=== PATIENT | male | born 1945 | race Caucasian/White ===

== ENCOUNTER 2019-09-27 13:58 | Outpatient (CLI) | payer OTHER, MEDICARE, SELFPAY ==
--- NOTE | 2019-09-27 | XR_ITS ---
WS: [id number] PROCEDURE: XR chest 2V* [id number] CLINICAL INFORMATION: HYPOXIA COMPARISON: December 07, 2018 FINDINGS: Heart: Cardiomegaly. Lungs: Mild chronic emphysematous changes. No acute pulmonary infiltrates. No focal pneumonia. Bones: Hypertrophic changes thoracic spine. XR/XR chest 2V* [id number] IMPRESSION: Mild chronic emphysematous changes. No acute chest findings.
== END 2019-09-27 13:59 | disposition home or self-care (01) ==
LOC: RADWPI 14:03
PROVIDERS: Family Provider Family Medicine; PCP Family Medicine; Visit Provider Family Medicine
DX: R09.02 Hypoxemia (principal); G62.9 Polyneuropathy, unspecified; I10 Essential (primary) hypertension; Z00.00 Encounter for general adult medical examination without abnormal findings; R60.9 Edema, unspecified
CPT/HCPCS: 71046

== ENCOUNTER 2019-10-21 13:31 | Outpatient (CLI) | payer MEDICARE, SELFPAY ==
--- NOTE | 2019-10-21 14:13 | PFTS_ITS ---
Date of Study:10/21/19 Date of Dictation: MECHANICS: Forced vital capacity (FVC) is reduced. Forced expiratory volume in one second (FEV1) is normal. FEV1/FVC is normal. FLOW VOLUME LOOP: Reduced flow at lower lung volumes with mild scooping. LUNG VOLUMES: Total lung capacity (TLC) is normal. Residual volume (RV) is normal. DIFFUSING CAPACITY FOR CARBON MONOXIDE: . INTERPRETATION: The pulmonary function tests are consistent with mild restriction. Lung volumes normal. Gas exchange (DLCO) is normal. MTDD
== END 2019-10-21 13:32 | disposition home or self-care (01) ==
LOC: RT 13:33
PROVIDERS: Family Provider Family Medicine; PCP Family Medicine; Visit Provider Family Medicine
DX: R09.02 Hypoxemia (principal)
CPT/HCPCS: 94010; 94726; 94729

== ENCOUNTER 2020-11-04 14:36 | Outpatient (CLI) | payer MEDICARE, SELFPAY ==
--- NOTE | 2020-11-04 15:00 | USCV_ITS ---
Heriberto Lyon Age: 74 Gender: M : 1945 Exam Date: 11/04/2020 15:36 Ordering Phys: Ninfa Kasper MD ([email or web address]) Technologist: SEGUNDO [place] [facility] [place]: THORACIC AORTIC ANEURYSM BP: 184 / 95 HR: 64 Rhythm: Sinus Technical Quality: Adequate MEASUREMENTS (Male / Female) Normal Values 2D ECHO LV Diastolic Diameter PLAX 5.1 cm 4.2 - 5.9 / 3.9 - 5.3 cm LV Systolic Diameter PLAX 3.3 cm IVS Diastolic Thickness 0.9 cm 0.6 - 1.0 / 0.6 - 0.9 cm IVS Systolic Thickness 2.0 cm LVPW Diastolic Thickness 1.4 cm 0.6 - 1.0 / 0.6 - 0.9 cm LVPW Systolic Thickness 1.6 cm LVOT Diameter 2.0 cm LV Ejection Fraction 2D Teich 63.7 % LV Ejection Fraction MOD 2C 60.4 % LV Ejection Fraction 2C AL 62.0 % LA Diameter 4.3 cm LA Width 2.9 cm LA Height 4.6 cm RA Width 2.8 cm RA Height 4.5 cm Aorta at Sinotubular Diameter 4.0 cm DOPPLER AV Peak Velocity 91.0 cm/s LVOT Peak Velocity 84.0 cm/s AV Area Cont Eq vti 2.7 cm squared AV Area Cont Eq pk 2.9 cm squared MV Peak Velocity 116.0 cm/s MV Area PHT 4.3 cm squared Mitral E to A Ratio 0.7 MV E' Velocity 43.0 cm/s Mitral E to MV E' Ratio 16.5 Mitral E to LV E' Lateral Ratio 14.7 Mitral E to LV E' Septal Ratio 18.8 TR Peak Velocity 249.9 cm/s TR Peak Gradient 25.0 mmHg TR Mean Velocity 169.0 cm/s TR Mean Gradient 13.5 mmHg TR Velocity Time Integral 76.8 cm TV Peak E Velocity 63.0 cm/s Right Atrial Pressure 3.0 mmHg Pulmonary Artery Systolic Pressu 28.0 mmHg PV Peak Velocity 84.0 cm/s RV Acceleration Time 0.0 s RV Ejection Time 0.3 s RV AcT/ET 0.1 FINDINGS Left Ventricle Normal left ventricular size, systolic function and wall thickness, with no regional wall motion abnormalities. Left ventricular ejection fraction is estimated at 60 %. Grade I diastolic dysfunction (abnormal relaxation filling pattern), normal to mildly elevated filling pressures. Right Ventricle Normal right ventricular size and systolic function. RVSP could not be calculated due to incomplete tricuspid regurgitation velocity profile. Right Atrium Normal right atrial size. Right atrial pressure estimated at 3 mm Hg. Left Atrium Mildly increased left atrial size. Mitral Valve Structurally normal mitral valve. No mitral valve stenosis. Trace mitral valve regurgitation. Aortic Valve Structurally normal trileaflet aortic valve. No aortic valve stenosis. No aortic valve regurgitation. Tricuspid Valve Structurally normal tricuspid valve. No tricuspid valve stenosis. Trace tricuspid valve regurgitation. Pulmonic Valve Pulmonic valve not well visualized. No pulmonary valve regurgitation. Pericardium No pericardial effusion. Aorta Mildly dilated aortic root measured at 43 mm and ascending aorta measured at 46 mm. Effacement of sino-tubular junction.Normal sized infreior vena cava. CONCLUSIONS 1. Normal left ventricular size, systolic function and wall thickness, with no regional wall motion abnormalities. Left ventricular ejection fraction is estimated at 60 %. Grade I diastolic dysfunction (abnormal relaxation filling pattern), normal to mildly elevated filling pressures. 2. No significant valvular abnormality. 3. Mildly dilated aortic root measured at 43 mm and ascending aorta measured at 46 mm. 4. No significant change when compared to previous study dated 01/09/2018. Ninfa Kasper MD (Electronically Signed) Final Date: 07 November 2020 10:25 S
== END 2020-11-04 14:37 | disposition home or self-care (01) ==
LOC: US 14:42
PROVIDERS: PCP Family Medicine; Visit Provider Internal Medicine Cardiovascular Disease
DX: I71.2 Thoracic aortic aneurysm, without rupture (principal)
CPT/HCPCS: 93306

== ENCOUNTER 2021-01-23 11:12 | Inpatient (IN) | payer OTHER, MEDICARE, SELFPAY ==
[2021-01-23] VITALS (8 sets, daily range): BP systolic 119–202; BP diastolic 77–119; PULSE 69–147; RESP 16–21; TEMP 36–37.7; O2SAT 91–95; BMI 34.1
--- NOTE | 2021-01-23 11:18 | ECG_ITS ---
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 Measurements Intervals [place] Rate: 67 P: 32 NC: 204 QRS: -27 QRSD: 87 T: 8 QT: 362 QTc: 382 Interpretive Statements SINUS RHYTHM BORDERLINE LEFT AXIS DEVIATION [QRS AXIS < -20] MINIMAL VOLTAGE CRITERIA FOR LVH, CONSIDER NORMAL VARIANT [MEETS CRITERIA IN ONE OF: R(aVL), S(V1), R(V5), R(V5/V6)+S(V1)] Compared to ECG 12/07/2018 20:09:28 First degree AV block no longer present Myocardial infarct finding no longer present Electronically Signed On 01-23-2021 21:28:07 CDT by Thom Matta M.D. [id number]
--- NOTE | 2021-01-23 11:18 | XRR_ITS ---
PROCEDURE INFORMATION: Exam: XR Chest Exam date and time: 01/23/2021 11:18 AM Age: 75 years old Clinical indication: Pain; Chest pressure; Additional info: Chest pain TECHNIQUE: Imaging protocol: XR of the chest. Views: 1 view. COMPARISON: CR XR chest 2V* [id number] 09/27/2019 2:10 PM FINDINGS: Lungs: Unremarkable. No consolidation. Pleural spaces: Unremarkable. No pleural effusion. No pneumothorax. Heart/Mediastinum: Unremarkable. No cardiomegaly. Bones/joints: Unremarkable. XR/XR chest 1V portable [id number] IMPRESSION: No acute findings. Radiation Dose CTDIVOL = (mGy): DLP = (mGy-cm)
--- NOTE | 2021-01-23 11:46 | CTR_ITS ---
PROCEDURE INFORMATION: Exam: CTA Chest Without And With Contrast Exam date and time: 01/23/2021 11:46 AM Age: 75 years old Clinical indication: Sternal or substernal pain; Abdominal pain; Patient HX: HX of ascending aneurysm C/O intermittent substernal/epigastric pain; Additional info: HX of aortic aneurysm, new onset of chest pain TECHNIQUE: Imaging protocol: Computed tomographic angiography of the chest without and with contrast. 3D rendering (Not supervised by radiologist): MIP and/or 3D reconstructed images were created by the technologist. Radiation optimization: All CT scans at this facility use at least one of these dose optimization techniques: automated exposure control; mA and/or kV adjustment per patient size (includes targeted exams where dose is matched to clinical indication); or iterative reconstruction. Contrast material: OMNI 350; Contrast volume: 95 ml; Contrast route: INTRAVENOUS (IV); COMPARISON: CTA Thoracic Aorta [id number] 12/07/2018 4:32 PM RADIATION DOSE METRICS: Total DLP (mGy-cm): 2467.85 FINDINGS: Pulmonary arteries: Normal. No pulmonary emboli. Aorta: There is aneurysmal dilation of the ascending thoracic aorta measuring 4.3 cm and 4.5 cm at the root. No dissection. Lungs: There is probable atelectasis/scar in the lungs. No lung mass or significant consolidation. Pleural spaces: Unremarkable. No pneumothorax. No pleural effusion. Heart: Unremarkable. No cardiomegaly. No pericardial effusion. Lymph nodes: Unremarkable. No enlarged lymph nodes. Bones/joints: Degenerative change is identified in the spine. No acute fracture. Soft tissues: Unremarkable. IMPRESSION: There is aneurysmal dilation of the ascending thoracic aorta which is not significantly changed when compared with 12/07/2018. No dissection. PROCEDURE INFORMATION: Exam: CTA Abdomen and Pelvis With Contrast Exam date and time: 01/23/2021 11:46 AM Age: 75 years old Clinical indication: Sternal or substernal pain; Abdominal pain; Patient HX: HX of ascending aneurysm C/O intermittent substernal/epigastric pain; Additional info: HX of aortic aneurysm, new onset of chest pain TECHNIQUE: Imaging protocol: Computed tomographic angiography of the abdomen and pelvis with contrast material. 3D rendering (Not supervised by radiologist): MIP and/or 3D reconstructed images were created by the technologist. Radiation optimization: All CT scans at this facility use at least one of these dose optimization techniques: automated exposure control; mA and/or kV adjustment per patient size (includes targeted exams where dose is matched to clinical indication); or iterative reconstruction. Contrast material: OMNI 350; Contrast volume: 95 ml; Contrast route: INTRAVENOUS (IV); COMPARISON: CTA Thoracic Aorta [id number] 12/07/2018 4:32 PM RADIATION DOSE METRICS: Total DLP (mGy-cm): 2467.85 FINDINGS: Aorta: No aortic aneurysm. No aortic dissection. Celiac trunk and mesenteric arteries: No occlusion or significant stenosis. Renal arteries: No occlusion or significant stenosis. Right iliac arteries: No occlusion or significant stenosis. Left iliac arteries: No occlusion or significant stenosis. Liver: Findings consistent with fatty infiltration of the liver are identified. Gallbladder and bile ducts: Gallstones are identified although there are no CT findings to suggest cholecystitis. Pancreas: Unremarkable. No mass. No ductal dilation. Spleen: Unremarkable. No splenomegaly. Adrenal glands: Unremarkable. No mass. Kidneys and ureters: Unremarkable. No solid mass. No hydronephrosis. Stomach and bowel: Unremarkable. No obstruction. No mucosal thickening. Appendix: No evidence of appendicitis. Intraperitoneal space: Unremarkable. No free air. No significant fluid collection. Lymph nodes: Unremarkable. No enlarged lymph nodes. Urinary bladder: Unremarkable. No mass. Reproductive: Unremarkable as visualized. Bones/joints: No acute fracture. No dislocation. Soft tissues: Unremarkable. CT/CT angio chest abdomen pelvis IMPRESSION: There are no acute concerning abnormalities. Radiation Dose CTDIVOL = (mGy): DLP = 2467.85~2467.85 (mGy-cm)
--- NOTE | 2021-01-23 11:50 | ED_ITS ---
HPI - General Adult General: Chief complaint: Chest Pain Stated complaint: CP, BP 202/122 Time Seen by Provider: 01/23/21 11:26 History of Present Illness: HPI narrative: CC: Chest Pain HPI: This is a [75] yo patient hx of HTN, DM, ascending thoracic aneurysm, presenting to the ED w/ acute onset intermittent R sided substernal chest pain x 1 day with associated dyspnea since yesterday night taht has now become constant. Pain is not tearing in nature and does not radiate to the back. Endorse nausea but has no associated with vomiting or decreased PO intake. Denies any recent sympathomimetic drug use. Patient denies any cough. Denies palpitations, syncope symptoms. Pain not positional. Norecent immobility, surgery, unilateral leg swelling, or prior PE. Patient denies any orthopnea, paroxysmal nocturnal dyspnea, weight gain, or increased leg swellings. Onset: 1 day ago Duration: ongoing for the last 1 days Location: home Severity: moderate Review of Systems Narrative: Constitutional: No fever, no chills. HEENT: No vision changes, no sore throat. CV: +chest pain, no palpitations. PULM: No cough, +dyspnea. GI: No abdominal pain, no N/V/D. : No dysuria, no frequency, no hematuria. MSKEL: No arthralgias, no edema. SKIN: No new rashes, no lesions. NEURO: No headache, no focal weakness. HEME: No easy bleeding or bruising. PSYCH: No change in mood or affect. PFS ED PFSH: Medical History Aortic root dilatation Diabetes GERD (gastroesophageal reflux disease) Hyperlipidemia Hypertension Thoracic ascending aortic aneurysm Surgical History S/P tonsillectomy and adenoidectomy Family History (Updated 01/23/21 @ 15:34 by Cruzito Avendano MD) Other CAD (coronary artery disease) Social History Smoking and tobacco status: former smoker Alcohol intake: current Alcohol intake frequency: holidays/special occasions only Physical Exam Narrative: EXAM NARRATIVE: Head: Atraumatic, normocephalic Eyes: PERRL, EOMI, conjunctiva without injection ENT: Throat without erythema, lesions or exudate, MMM NECK: Supple, trachea midline, no JVD LUNGS: LCTA CV: RRR, S1,S2, no murmurs, rubs, gallops. 2+ peripheral pulses in UEs ABDOMEN: Soft, nontender, nondistended, BS x4, no rigidity, no guarding, no rebound EXTREMITY: Normal ROM, no pitting edema, no calf tenderness to palpation SKIN: No rash or erythema NEURO: Awake and alert. No focal motor deficits. PSYCH: Normal mood and affect. Course Vital Signs: Vital signs: Vital Signs Temperature 100 F H 01/23/21 20:00 Pulse Rate 81 01/23/21 20:00 Respiratory Rate 21 H 01/23/21 20:00 Blood Pressure 134/77 01/23/21 20:00 Pulse Oximetry 91 01/23/21 20:00 MDM - General Adult MDM Narrative: Medical decision making narrative: [75]yo patient w/ hx of HTN, DM presenting to the ED With acute substernal chest pain X 1 day Currently mild chest pain. Given History And Exam today I have moderate to high suspicion for AC S/UA/NSTEMI. Today, I have NO suspicion for pneumothorax, pneumonia, pulmonary embolus, tamponade, aortic dissection or other emergent problem as a cause for this presentation. ECG did not show any signs of acute STEMI. Workup: ECG, CXR, CBC, BMP, Troponin Intervention: ASA 325mg, nitroglycerin ointment, nidipine for BP control Findings: ECG: No overt evidence of STEMI, no hyperacute T waves, localizable STD or T wave inversions. No evidence of Brugada?s sign, delta wave, epsilon wave, significantly prolonged QTc, or malignant arrhythmia. No Q waves. Troponin: Negative x 1 Other Labs unremarkable for emergent problems. CXR: Without PTX, PNA, or widened mediastinum HEART score: 4 [1:23] On reassessment, the patient is currently chest pain free. S/p aspirin 325mg. Will defer antiplatelet and anticoagulation to the inpatient team. Pending repeat troponin. 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 Disposition: Inpatient admission. Lab Data: Labs: Lab Results 01/23/21 01/23/21 01/23/21 12:04 12:04 12:04 WBC 12.1 10^3/uL H 10 ^3/uL (4.0-10.0) RBC 5.26 10^6/uL 10^6 /uL (4.1-5.3) Hgb 15.5 g/dL g/dL (11.7-16.6) Hct 46.0 % % (42.0-52.0) MCV 87.5 fl fl (80-94) MCH 29.5 pg pg (28.0-34.0) MCHC 33.7 g/dL g/dL (30.0-36.0) RDW 13.2 % % (12.1-15.1) Plt Count 287 10^3/cmm 10^3 /cmm (130-400) MPV 11.4 fL H fL (7.4-10.4) Neut % (Auto) 71.7 % % Lymph % (Auto) 14.0 % % [place] % (Auto) 12.2 % % Eos % (Auto) 1.5 % % Baso % (Auto) 0.3 % % Neut # (Auto) 8.63 10^3/uL H 10 ^3/uL (1.8-7.7) Lymph # (Auto) 1.7 10^3/uL 10^3/ uL (0.8-4.8) [place] # (Auto) 1.5 10^3/uL H 10^ 3/uL (0.2-0.9) Eos # (Auto) 0.2 10^3/uL 10^3/ uL (0.0-0.8) Baso # (Auto) 0.0 10^3/uL 10^3/ uL (0.0-0.1) Nucleated RBC % (a uto) 0 % % Nucleated RBCs # 0.0 /100WBC /100W BC Sodium 131 mmol/L L mmol /L (136-145) Potassium 3.7 mmol/L mmol/L (3.5-5.1) Chloride 92 mmol/L L mmol/ L (98-107) Carbon Dioxide 25 mmol/L mmol/L (22-29) Anion Gap 17.7 (5-19) BUN 15 mg/dL mg/dL (8-23) Creatinine 0.9 mg/dL mg/dL (0.7-1.2) GFR Calculation Not Reportable Glucose 121 mg/dL H mg/dL (65-115) Calculated Osmolal ity 274 mOsm/kg L mOs m/kg (285-295) Calcium 9.1 mg/dL mg/dL (8.5-10.5) Total Bilirubin Direct Bilirubin GGT AST ALT Alkaline Phosphata se Troponin T Baselin e 9 ng/L ng/L (0-15) Troponin T 120 Min joan Delta Troponin T C-Reactive Protein Total Protein Albumin Globulin Procalcitonin 01/23/21 01/23/21 12:04 13:20 WBC RBC Hgb Hct MCV MCH MCHC RDW Plt Count MPV Neut % (Auto) Lymph % (Auto) [place] % (Auto) Eos % (Auto) Baso % (Auto) Neut # (Auto) Lymph # (Auto) [place] # (Auto) Eos # (Auto) Baso # (Auto) Nucleated RBC % (a uto) Nucleated RBCs # Sodium Potassium Chloride Carbon Dioxide Anion Gap BUN Creatinine GFR Calculation Glucose Calculated Osmolal ity Calcium Total Bilirubin 0.5 mg/dL mg/dL (0.15-1.2) Direct Bilirubin 0.20 mg/dL mg/dL (0.00-0.30) GGT 23 U/L U/L (8-61) AST 29 U/L U/L (0-40) ALT 41 U/L U/L (0-41) Alkaline Phosphata se 52 IU/L IU/L (40-130) Troponin T Baselin e Troponin T 120 Min joan 9.91 ng/L ng/L (0-15) Delta Troponin T 0.91 ABS# ABS# (0-10) C-Reactive Protein 4.4 mg/L mg/L (0.0-4.9) Total Protein 7.4 g/dL g/dL (6.6-8.7) Albumin 4.3 g/dL g/dL (3.5-5.2) Globulin 3.1 g/dL g/dL (1.3-4.6) Procalcitonin 0.04 ng/mL ng/mL (0-0.5) Imaging Data^: Other Imaging: Radiologist's impression: [facility] [place] [id number] ReportSigned Patient: Heriberto Lyon #: [id number]: 1945cct#:[id number]/Sex: Date: 01/23/21Loc: ERRoom/Bed:Attending Dr: Ordering Provider/Ordering MD: Asael Hilario MD Date of Service: 01/23/21 Procedure(s): XR chest 1V portable [id number] Accession Number(s): [id number] Report Number: [id number] PROCEDURE INFORMATION: Exam: XR Chest Exam date and time: 01/23/2021 11:18 AM Age: 75 years old Clinical indication: Pain; Chest pressure; Additional info: Chest pain TECHNIQUE: Imaging protocol: XR of the chest. Views: 1 view. COMPARISON: CR XR chest 2V* [id number] 09/27/2019 2:10 PM FINDINGS: Lungs: Unremarkable. No consolidation. Pleural spaces: Unremarkable. No pleural effusion. No pneumothorax. Heart/Mediastinum: Unremarkable. No cardiomegaly. Bones/joints: Unremarkable. XR/XR chest 1V portable [id number] IMPRESSION: No acute findings. Radiation Dose CTDIVOL = (mGy): DLP = (mGy-cm) Dictated By:Russell Stephenson MDSigned By:Russell Stephenson MDSigned Date/Time:01/23/21 1327DD/ [address], [place] [address]GO Scan ReportSigned Patient: Heriberto Lyon #: [id number]: 1945t#:[id number] 60Age/Sex: Date: 01/23/21Loc: ERRoom/Bed:Attending Dr: Ordering Provider/Ordering MD: Asael Hilario MD Date of Service: 01/23/21 Procedure(s): CT angio chest abdomen pelvis Accession Number(s): [id number] Report Number: [id number] PROCEDURE INFORMATION: Exam: CTA Chest Without And With Contrast Exam date and time: 01/23/2021 11:46 AM Age: 75 years old Clinical indication: Sternal or substernal pain; Abdominal pain; Patient HX: HX of ascending aneurysm C/O intermittent substernal/epigastric pain; Additional info: HX of aortic aneurysm, new onset of chest pain TECHNIQUE: Imaging protocol: Computed tomographic angiography of the chest without and with contrast. 3D rendering (Not supervised by radiologist): MIP and/or 3D reconstructed images were created by the technologist. Radiation optimization: All CT scans at this facility use at least one of these dose optimization techniques: automated exposure control; mA and/or kV adjustment per patient size (includes targeted exams where dose is matched to clinical indication); or iterative reconstruction. Contrast material: OMNI 350; Contrast volume: 95 ml; Contrast route: INTRAVENOUS (IV); COMPARISON: CTA Thoracic Aorta [id number] 12/07/2018 4:32 PM RADIATION DOSE METRICS: Total DLP (mGy-cm): 2467.85 FINDINGS: Pulmonary arteries: Normal. No pulmonary emboli. Aorta: There is aneurysmal dilation of the ascending thoracic aorta measuring 4.3 cm and 4.5 cm at the root. No dissection. Lungs: There is probable atelectasis/scar in the lungs. No lung mass or significant consolidation. Pleural spaces: Unremarkable. No pneumothorax. No pleural effusion. Heart: Unremarkable. No cardiomegaly. No pericardial effusion. Lymph nodes: Unremarkable. No enlarged lymph nodes. Bones/joints: Degenerative change is identified in the spine. No acute fracture. Soft tissues: Unremarkable. IMPRESSION: There is aneurysmal dilation of the ascending thoracic aorta which is not significantly changed when compared with 12/07/2018. No dissection. PROCEDURE INFORMATION: Exam: CTA Abdomen and Pelvis With Contrast Exam date and time: 01/23/2021 11:46 AM Age: 75 years old Clinical indication: Sternal or substernal pain; Abdominal pain; Patient HX: HX of ascending aneurysm C/O intermittent substernal/epigastric pain; Additional info: HX of aortic aneurysm, new onset of chest pain TECHNIQUE: Imaging protocol: Computed tomographic angiography of the abdomen and pelvis with contrast material. 3D rendering (Not supervised by radiologist): MIP and/or 3D reconstructed images were created by the technologist. Radiation optimization: All CT scans at this facility use at least one of these dose optimization techniques: automated exposure control; mA and/or kV adjustment per patient size (includes targeted exams where dose is matched to clinical indication); or iterative reconstruction. Contrast material: OMNI 350; Contrast volume: 95 ml; Contrast route: INTRAVENOUS (IV); COMPARISON: CTA Thoracic Aorta [id number] 12/07/2018 4:32 PM RADIATION DOSE METRICS: Total DLP (mGy-cm): 2467.85 FINDINGS: Aorta: No aortic aneurysm. No aortic dissection. Celiac trunk and mesenteric arteries: No occlusion or significant stenosis. Renal arteries: No occlusion or significant stenosis. Right iliac arteries: No occlusion or significant stenosis. Left iliac arteries: No occlusion or significant stenosis. Liver: Findings consistent with fatty infiltration of the liver are identified. Gallbladder and bile ducts: Gallstones are identified although there are no CT findings to suggest cholecystitis. Pancreas: Unremarkable. No mass. No ductal dilation. Spleen: Unremarkable. No splenomegaly. Adrenal glands: Unremarkable. No mass. Kidneys and ureters: Unremarkable. No solid mass. No hydronephrosis. Stomach and bowel: Unremarkable. No obstruction. No mucosal thickening. Appendix: No evidence of appendicitis. Intraperitoneal space: Unremarkable. No free air. No significant fluid collection. Lymph nodes: Unremarkable. No enlarged lymph nodes. Urinary bladder: Unremarkable. No mass. Reproductive: Unremarkable as visualized. Bones/joints: No acute fracture. No dislocation. Soft tissues: Unremarkable. CT/CT angio chest abdomen pelvis IMPRESSION: There are no acute concerning abnormalities. Radiation Dose CTDIVOL = (mGy): DLP = 2467.85~2467.85 (mGy-cm) Dictated By:Russell Stephenson MDSigned By:Russell Stephenson MDSigned Date/Time:01/23/21 1426DD/ 1146 Discharge Plan Discharge Patient Disposition: Admitted As Inpatient Admit Provider: Cruzito Avendano Clinical Impression: Chest pain, Dyspnea Condition: Stable Coding Level of Care Code ED Process Owner for Bautista Mendoza
--- NOTE | 2021-01-23 12:12 | PC.NURSE ---
Assumed care at this time.
[2021-01-23 12:26] LABS: Basophils % 0.3 %; Eosinophils # 0.2 10^3/uL (0.0-0.8); Eosinophils % 1.5 %; Hemoglobin 15.5 g/dL (11.7-16.6); Lymphocytes # 1.7 10^3/uL (0.8-4.8); Mean Corpuscular HGB Conc 33.7 g/dL (30.0-36.0); Mean Corpuscular Hemoglobin 29.5 pg (28.0-34.0); Mean Corpuscular Volume 87.5 fl (80-94); Mean Platelet Volume 11.4 fL (7.4-10.4); Monocytes # 1.5 10^3/uL (0.2-0.9); Monocytes % 12.2 %; Neutrophils # 8.63 10^3/uL (1.8-7.7); Neutrophils % 71.7 %; Nucleated Red Blood Cells % 0 %; Platelet Count 287 10^3/cmm (130-400); Red Blood Count 5.26 10^6/uL (4.1-5.3); Red Cell Distribution Width 13.2 % (12.1-15.1); White Blood Count 12.1 10^3/uL (4.0-10.0)
[2021-01-23 12:51] LABS: Blood Urea Nitrogen 15 mg/dL (8-23); Calcium 9.1 mg/dL (8.5-10.5); Carbon Dioxide 25 mmol/L (22-29); Chloride 92 mmol/L (98-107); Glucose 121 mg/dL (65-115); Osmolality Calculated 274 mOsm/kg (285-295); Sodium 131 mmol/L (136-145)
[2021-01-23] MEDS: nitroglycerin 1 gm/inch oint Pkt 0.5 INCH TOPICAL (12:51)
[2021-01-23] MEDS: aspirin 325 mg Tablet PO (12:51)
[2021-01-23 12:52] LABS: Troponin(5th) Baseline 9 ng/L (0-15)
[2021-01-23 12:57] LABS: Anion Gap 17.7 (5-19); Potassium 3.7 mmol/L (3.5-5.1)
--- NOTE | 2021-01-23 13:18 | ECG_ITS ---
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 Measurements Intervals [place] Rate: 65 P: 48 ND: 228 QRS: -31 QRSD: 102 T: 4 QT: 399 QTc: 417 Interpretive Statements SINUS RHYTHM WITH FIRST DEGREE AV BLOCK LEFT AXIS DEVIATION [QRS AXIS < -30] MODERATE VOLTAGE CRITERIA FOR LVH, CONSIDER NORMAL VARIANT [MEETS CRITERIA IN ONE OF: R(aVL), S(V1), R(V5), R(V5/V6)+S(V1)] Compared to ECG 01/23/2021 11:57:37 First degree AV block now present Electronically Signed On 01-23-2021 21:34:41 CDT by Thom Matta M.D. [id number] f
[2021-01-23] MEDS: NIFEdipine ER (24 hr) 30 mg Tablet PO (13:27)
[2021-01-23] MEDS: lidocaine 2% viscous 15 ML, aluminum-mag hydrox-simethicon 30 ML, sucralfate oral liq 1 GM PO ×2 (13:37→17:19)
[2021-01-23] MEDS: morphine 4 mg/mL SDV 1 mL IVP (13:37)
[2021-01-23] MEDS: iohexol 350 mg/mL 100 mL Btl IV (13:48)
[2021-01-23 14:25] LABS: Troponin 5 2HR 9.91 ng/L (0-15); Troponin 5 2HR Delta 0.91 ABS# (0-10)
--- NOTE | 2021-01-23 15:17 | USR_ITS ---
PROCEDURE INFORMATION: Exam: US Abdomen, Limited; Right Upper Quadrant Exam date and time: 01/23/2021 3:17 PM Age: 75 years old Clinical indication: Abdominal pain; Epigastric; Additional info: Ruq pain TECHNIQUE: Imaging protocol: US abdomen. Real time ultrasound with image documentation. Limited exam focused on the right upper quadrant. COMPARISON: CT angio chest abdomen pelvis 01/23/2021 1:44 PM FINDINGS: Liver: Echogenic. No masses. Gallbladder: There are gallstones. There is no gallbladder wall thickening. Common bile duct: Normal. No stones. No dilation. Pancreas: Not seen. Right kidney: Measures 12.2 x 4.7 x 4.4 cm. No mass. No hydronephrosis. US/US gall bladder [id number] IMPRESSION: No sonographic evidence for cholecystitis. Findings consistent with fatty infiltration of the liver are identified. Radiation Dose CTDIVOL = (mGy): DLP = (mGy-cm)
--- NOTE | 2021-01-23 15:31 | P.HP_ITS ---
Providers/Chief Complaint Admitting Physician: Cruzito Avendano MD Primary Care Provider: Brissa Garland MD Chief Complaint: CP, BP 202/122 History of Present Illness Heriberto Lyon is a 75 year old male with a past medical history of noninsulin- dependent type 2 diabetes mellitus, hypertension, GERD, TIA, ascending aortic aneurysm, who presents to [facility] due to complaints of abdominal pain, and chest pain. Patient tells me that yesterday he had episodes of right upper quadrant, epigastric pain and pain into the right side of his chest. Nonradiating, associated with nausea, no vomiting, no lightheadedness, dizziness, shortness of breath, no bloody or black stools, or decrease in stooling, he tells me he always has acid reflux, he tells me that his pain is primarily in the epigastrium, no right upper quadrant, the right side of his chest, he tells me that the pain comes on in waves, but when it severe, pain can be 10 out of 10, he tells me that currently he is having waves of pain, he did have a croissant and sausage for breakfast. Denies a history of stenting, did have a stress test many years ago, no recent onset of chest pain, no recent onset of shortness of breath Review of Systems Const: Denies: fever(s), chills, fatigue or malaise Eyes: Denies: change in vision or blurry vision ENMT: Denies: nasal congestion Card: Reports: chest pain Resp: Denies: dyspnea, productive cough, non-productive cough or wheezing GI: Reports: abdominal pain and nausea; Denies: vomiting, hematemesis, coffee ground emesis, diarrhea, constipation, hematochezia or melena : Denies: flank pain, difficulty urinating, dysuria or urinary frequency Musc: Denies: neck pain or back pain Skin/Breast: Denies: rash Neuro: Denies: headache(s), dizziness or vertigo Psych: Denies: anxiety or depression Endo: Denies: polyuria or polydipsia Medications/Allergies Home Medications Medication Instructions Recorded Confirmed Last Taken Type aspirin 81 mg tablet,delayed 81 mg PO DAILY 10/02/19 01/23/21 01/22/21 History release metformin 1,000 mg tablet 500 mg PO BID tab 0601/23/21 01/19/21 History nitroglycerin 0.4 mg sublingual 0.4 mg SUBLINGUAL Q5M PRN 10/02/19 01/14/20 Unknown History tablet omeprazole 20 mg capsule,delayed 20 mg PO DAILY 10/02/19 01/14/20 Unknown History release metoprolol tartrate 100 mg tablet 100 mg PO BID 09/28/20 Unknown History hydrochlorothiazide 50 mg tablet 50 mg PO DAILY #30 tab 10/12/20 01/23/21 1 Rx potassium chloride 10 mEq 10 meq PO DAILY #30 cap 10/12/20 Unknown Rx capsule,extended release telmisartan 80 mg tablet 80 mg PO DAILY 10/12/20 Unknown History Allergies Allergy/AdvReac Type Severity Reaction Status Date / Time gabapentin Allergy Unknown Verified 09/28/20 11:03 lisinopril Allergy Unknown Verified 09/28/20 11:03 PFSH Acute PFSH: Medical History Aortic root dilatation Diabetes GERD (gastroesophageal reflux disease) Hyperlipidemia Hypertension Thoracic ascending aortic aneurysm Surgical History S/P tonsillectomy and adenoidectomy Family History (Updated 01/23/21 @ 15:34 by Cruzito Avendano MD) Other CAD (coronary artery disease) Social History Smoking and tobacco status: former smoker Alcohol intake: current Alcohol intake frequency: holidays/special occasions only Vitals/I&O/Wt Last Vital Signs Temp 98.5 F 01/23/21 14:51 Pulse 147 H 01/23/21 14:51 Resp 18 01/23/21 14:51 BP 148/86 01/23/21 14:51 Pulse Ox 92 01/23/21 14:51 Weight last 48 hrs Weight 88.451 kg Physical Exam Const: COMMON NORMALS: no acute distress and patient oriented x3 GENERAL APPEARANCE: cooperative and comfortable HENMT: COMMON NORMALS: normocephalic HEAD & SCALP: normocephalic Eye: COMMON NORMALS: Equal, round and reactive pupils present and EOMs intact bilaterally GENERAL EYE: appearance normal, both eyes and all related structures PUPIL: Yes Equal, round and reactive pupils present Neck/C-Spine: COMMON NORMALS: full ROM and no lymphadenopathy THYROID: Thyroid normal Lymph: LYMPHATIC: no lymphadenopathy noted Resp: COMMON NORMALS: normal respiratory effort, No retractions, No use of accessory muscles and clear to auscultation bilaterally AUSCULTATION: clear to auscultation bilaterally Cardio: COMMON NORMALS: regular rate, regular rhythm, S1 normal heart sound present, S2 normal heart sound present, No gallops present (Cardio), No clicks present (Cardio) and No murmurs present (Cardio) RATE: regular rate R HYTHM: regular rhythm HEART SOUNDS: S1 normal heart sound present and S2 normal heart sound present GI: COMMON NORMALS: Normal to inspection, nondistended, normoactive bowel sounds present and Soft to palpation PALPATION: Yes Soft to palpation and Yes Tenderness to palpation present (GI) Details: RUQ Extremity: COMMON NORMALS: normal to inspection, full ROM and no pedal edema Neuro: COMMON NORMALS: patient oriented x3, CN's II-XII intact bilaterally, moves all extremities and no focal motor deficits Psych: COMMON NORMALS: mental status grossly normal, Normal thought process present and cooperative THOUGHT PROCESS: Normal thought process present Data : 01/23/21 12:04 01/23/21 12:04 A&P Assessment and plan (1) Abdominal pain: -Patient's pain is more in the right upper quadrant and epigastrium rather than in the right side of the chest -No left-sided chest pain -Initial EKG no acute ST-T wave changes, baseline troponin within normal limits -Has exquisite right upper quadrant tenderness to palpation -CT scan of the abdomen pelvis does show gallstones, no radiographic evidence of cholecystitis, white blood cell count 12.1 -Liver function studies, pending Plan -Serial EKGs, serial troponins, telemetry monitoring, continue aspirin, statin -Follow right upper quadrant ultrasound, liver function studies -Based upon findings we will consider starting antibiotic therapy, discussion with surgery Type 2 diabetes mellitus, low-dose sliding scale Hyperlipidemia Hypertension GERD, continue Protonix, GI cocktail Status: Acute (2) Thoracic ascending aortic aneurysm: Status: Acute (3) Hyperlipidemia: Status: Acute Qualifiers: Hyperlipidemia type: mixed hyperlipidemia Qualified Code(s): E78.2 - Mixed hyperlipidemia (4) Diabetes: Status: Acute Qualifiers: Diabetes mellitus type: type 2 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 Qualified Code(s): E11.9 - Type 2 diabetes mellitus without complications Attestations Medical Necessity Statement*: Patient requires hospitalization, outpatient wit h observation, for chest pain, abdominal pain Coding Level of Care Code Acute 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
[2021-01-23 15:48] LABS: Alanine Aminotransferase 41 U/L (0-41); Albumin Level 4.3 g/dL (3.5-5.2); Alkaline Phosphatase 52 IU/L (40-130); C Reactive Protein 4.4 mg/L (0.0-4.9); Globulin 3.1 g/dL (1.3-4.6); Total Bilirubin 0.5 mg/dL (0.15-1.2); Total Protein 7.4 g/dL (6.6-8.7)
[2021-01-23 15:53] LABS: Procalcitonin 0.04 ng/mL (0-0.5)
[2021-01-23 16:08] LABS: Aspartate Amino Transferase 29 U/L (0-40)
[2021-01-23 16:21] LABS: Gamma Glutamyl Transferase 23 U/L (8-61)
[2021-01-23 17:15] LABS: Glucose Point of Care 149 mg/dL (70-110)
[2021-01-23] MEDS: metoprolol tartrate 50 mg Tablet 100 MG PO (17:18)
[2021-01-23] MEDS: heparin 5,000 unit/mL INJ 1 mL 5000 UNIT SUBCUT (17:18)
[2021-01-23] MEDS: insulin lispro 100 unit/1 mL SUBCUT (17:18)
--- NOTE | 2021-01-23 17:18 | ECG_ITS ---
[facility] Test Date: 2021-01-23 Pat Name: Heriberto Lyon Department: Room: 106 Gender: Male Rn Intake: : 1945 Requested By: Asael Hilario Order Number: [id number] Dimas MD: Thom Matta M.D. Measurements Intervals Pledger Rate: 85 P: 49 PA: 217 QRS: -36 QRSD: 102 T: 7 QT: 357 QTc: 426 Interpretive Statements SINUS RHYTHM WITH FIRST DEGREE AV BLOCK LEFT AXIS DEVIATION [QRS AXIS < -30] MINIMAL VOLTAGE CRITERIA FOR LVH, CONSIDER NORMAL VARIANT [MEETS CRITERIA IN ONE OF: R(aVL), S(V1), R(V5), R(V5/V6)+S(V1)] Compared to ECG 01/23/2021 13:11:36 No significant changes Electronically Signed On 01-23-2021 21:34:24 CDT by Thom Matta M.D. [id number]
[2021-01-23 18:28] LABS: Troponin 5 6HR 11.66 ng/L (0-15); Troponin 5 6HR Delta 2.66 ng/L (0-12)
--- NOTE | 2021-01-23 18:37 | PC.NURSE ---
pt admitted into room 106 from er at 1630.report received.pt is alert and oriented x 4 .sr w/first degree avb on monitor.pt states abd pain has resolved since er.oriented to room environment.instructed to notify staff for pain,sob,or for any concerns.pt verb understanding of instructions
[2021-01-23] MEDS: amoxicillin-clav 875-125 mg Tablet 1 TAB PO (19:48)
[2021-01-23] MEDS: atorvastatin 40 mg Tablet PO (19:49)
[2021-01-23 20:10] LABS: Glucose Point of Care 159 mg/dL (70-110)
[2021-01-24] VITALS (11 sets, daily range): BP systolic 134–168; BP diastolic 80–98; PULSE 78–95; RESP 19–29; TEMP 36.6–37.6; O2SAT 90–95
[2021-01-24] MEDS: heparin 5,000 unit/mL INJ 1 mL 5000 UNIT SUBCUT ×2 (03:57→18:03)
[2021-01-24 04:00] LABS: Basophils % 0.2 %; Eosinophils % 0.1 %; Hematocrit 45.2 % (42.0-52.0); Lymphocytes # 1.1 10^3/uL (0.8-4.8); Lymphocytes % 9.7 %; Mean Corpuscular HGB Conc 33.2 g/dL (30.0-36.0); Mean Corpuscular Hemoglobin 29.2 pg (28.0-34.0); Mean Corpuscular Volume 87.9 fl (80-94); Mean Platelet Volume 11.1 fL (7.4-10.4); Monocytes # 1.7 10^3/uL (0.2-0.9); Neutrophils # 8.88 10^3/uL (1.8-7.7); Neutrophils % 75.6 %; Nucleated Red Blood Cells % 0 %; Platelet Count 274 10^3/cmm (130-400); Red Blood Count 5.14 10^6/uL (4.1-5.3); Red Cell Distribution Width 13.6 % (12.1-15.1); White Blood Count 11.8 10^3/uL (4.0-10.0)
[2021-01-24 04:30] LABS: Estmated Average Glucose 151; Hemoglobin A1C 6.9 % (4.0-6.0)
[2021-01-24 04:42] LABS: Chol HDL Ratio 2.98 mg/dL (1.0-5.00); Cholesterol 140 mg/dL (0-200); HDL Cholesterol 47 mg/dL (60-100); LDL Cholesterol Calculated 52 mg/dL (50-129); LDL HDL Ratio 1.11 RATIO (0.00-3.22); NT Pro B Type Natriuretic Pept 301 pg/mL (0-450); Triglycerides 206 mg/dL (0-150)
[2021-01-24 04:46] LABS: Alanine Aminotransferase 34 U/L (0-41); Albumin Level 4.1 g/dL (3.5-5.2); Alkaline Phosphatase 55 IU/L (40-130); Anion Gap 17.5 (5-19); Aspartate Amino Transferase 22 U/L (0-40); Blood Urea Nitrogen 20 mg/dL (8-23); Calcium 9.1 mg/dL (8.5-10.5); Carbon Dioxide 27 mmol/L (22-29); Chloride 93 mmol/L (98-107); Globulin 3.2 g/dL (1.3-4.6); Glucose 150 mg/dL (65-115); Magnesium 1.9 mg/dL (1.7-2.3); Osmolality Calculated 283 mOsm/kg (285-295); Potassium 3.5 mmol/L (3.5-5.1); Sodium 134 mmol/L (136-145); Thyroid Stimulating Hormone 1.53 uIU/mL (0.27-4.20); Total Bilirubin 0.9 mg/dL (0.15-1.2); Total Protein 7.3 g/dL (6.6-8.7)
[2021-01-24 06:21] LABS: Glucose Point of Care 164 mg/dL (70-110)
[2021-01-24] MEDS: morphine 4 mg/mL SDV 1 mL 2 MG IVP (07:12)
[2021-01-24 08:21] LABS: Glucose Point of Care 147 mg/dL (70-110)
[2021-01-24] MEDS: metoprolol tartrate 50 mg Tablet 100 MG PO ×2 (08:49→18:03)
[2021-01-24] MEDS: amoxicillin-clav 875-125 mg Tablet 1 TAB PO (08:49)
[2021-01-24] MEDS: losartan 50 mg Tablet 100 MG PO (08:49)
[2021-01-24] MEDS: pantoprazole DR 40 mg Tablet PO ×2 (08:49→18:03)
[2021-01-24] MEDS: aspirin 81 mg EC Tablet PO (08:50)
[2021-01-24] MEDS: insulin lispro 100 unit/1 mL SUBCUT ×3 (08:50→18:03)
[2021-01-24 11:05] LABS: Glucose Point of Care 171 mg/dL (70-110)
--- NOTE | 2021-01-24 13:36 | P.PN_ITS ---
Subjective Subjective: Interval history: Intermittent right upper quadrant sharp pain. This morning had to have pain medication for it. Last night low-grade temp of 100 Fahrenheit. Discussed with him and his . Discussed also low saturation noted on vital signs, although his states that they monitor at home due to intermittent decreases, and sometimes goes as low as 92%. Does not use oxygen usually. We noticed saturation was coming down as low as 89% when he was speaking. Otherwise seen around 90-91%. He has been having nausea dry heaving. Takes NSAIDs at home for pain in his legs, has been taking naproxen twice daily. Has been taking it also recently due to the epigastric/right upper quadrant pain. Denies headache, muscle aches, cough, diarrhea. Previously completed moderate vaccination series for COVID-19. Discussed with him consideration of additional evaluation Including additional relation for possible cholecystitis, adjustment of antibiotic regimen to cover for this as well. Evaluation with HIDA scan. Discussed likely may not be able to do this today, they are agreeable to plan for tomorrow. We will also check lipase. Discussed testing for COVID-19. Vitals/I&O/Wt Last Vital Signs Temp 99.6 F 01/24/21 11:42 Pulse 78 01/24/21 11:42 Resp 28 H 01/24/21 11:42 BP 153/91 01/24/21 11:42 Pulse Ox 91 01/24/21 11:42 01/23/21 01/24/21 01/24/21 22:59 06:59 14:59 Intake Total 600 / 600 360 / 960 Balance 600 / 600 360 / 960 Weight last 48 hrs Weight 93.015 kg Weight 88.451 kg Physical Exam Narrative: EXAM NARRATIVE: at bedside. Const: COMMON NORMALS: no acute distress, patient oriented x3 and alert GENERAL APPEARANCE: cooperative NUTRITIONAL APPEARANCE: obese ORIENTATION/CONSCIOUSNESS: Yes awake OTHER: Somewhat SAXMAN. HENMT: COMMON NORMALS: oropharynx normal Neck/C-Spine: COMMON NORMALS: no JVD Resp: COMMON NORMALS: normal respiratory effort and clear to auscultation bilaterally AUSCULTATION: clear to auscultation bilaterally Cardio: COMMON NORMALS: no JVD, regular rhythm, S1 normal heart sound present, S2 normal heart sound present and No murmurs present (Cardio) RHYTHM: regular rhythm HEART SOUNDS: S1 normal heart sound present and S2 normal heart sound present GI: COMMON NORMALS: Normal to inspection, nondistended, normoactive bowel sounds present PALPATION: Yes Tenderness to palpation present (GI) Details: RUQ Extremity: COMMON NORMALS: no joint enlargement and no pedal edema Neuro: COMMON NORMALS: patient oriented x3 and moves all extremities SENSORIUM/ORIENTATION: Yes alert Skin: COMMON NORMALS: no rashes or lesions noted GENERAL SKIN EXAM: no rashes or lesions noted Data : 01/24/21 03:37 01/24/21 03:37 A&P Assessment and plan (1) Abdominal pain: Discussed right upper quadrant pain. Persists. Liver parameters normal. Check lipase. Discussed consideration of possible cholecystitis, although diagnosis not clear in setting of normal liver parameters, does have known cholelithiasis, but no other markers of cholecystitis noted. For now empirically change antibiotics to Cipro, Flagyl. There are some persistence of leukocytosis 11.8. Requesting additional assessment by HIDA scan. Discussed also possibility of gastritis given he does take naproxen at home in addition to aspirin. Continue PPI. Will increase to PPI twice daily. Discussed also aortic aneurysm of which he is aware, although there has been no change from prior. This is not suspected to be contributing. CT angiogram chest abdomen pelvis otherwise not remarkable for other possible etiology. Check rapid COVID-19. Status: Acute (2) Thoracic ascending aortic aneurysm: Status: Acute (3) Hyperlipidemia: Status: Acute Qualifiers: Hyperlipidemia type: mixed hyperlipidemia Qualified Code(s): E78.2 - Mixed hyperlipidemia (4) Diabetes: Status: Acute Qualifiers: Diabetes mellitus type: type 2 Diabetes mellitus assisted insulin use: without assisted use Diabetes mellitus complication status: without complication Qualified Code(s): E11.9 - Type 2 diabetes mellitus without complications Additional A&P Information GERD, continue Protonix, GI cocktail Attestations Medical Necessity Statement*: Admission over 2 midnights is needed for assessment management of recurrent episodes of right upper quadrant pain, low- grade fever, persistent leukocytosis. 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
[2021-01-24 14:22] LABS: Lipase 26 U/L (13-60)
[2021-01-24] MEDS: ciprofloxacin 400 MG/200 ML PREMIX 200 MG IV (15:50)
[2021-01-24] MEDS: metroNIDAZOLE IV 500 MG/100 ML PREMIX 100 MG IV ×2 (15:51→20:49)
--- NOTE | 2021-01-24 17:49 | USCV_ITS ---
Camron Heriberto Age: 75 Gender: M : 1945 Exam Date: 01/24/2021 07:12 Ordering Phys: Cruzito Avendano MD Technologist: Leah Hines Exam Location: [facility] Indication: Chest pain BP: 139 / 80 HR: 86 Rhythm: Sinus Technical Quality: Fair MEASUREMENTS (Male / Female) Normal Values 2D ECHO LV Diastolic Diameter PLAX 4.1 cm 4.2 - 5.9 / 3.9 - 5.3 cm LV Systolic Diameter PLAX 1.9 cm LV Chamber Size 3.6 cm IVS Diastolic Thickness 1.7 cm 0.6 - 1.0 / 0.6 - 0.9 cm IVS Systolic Thickness 1.2 cm LVPW Diastolic Thickness 0.8 cm 0.6 - 1.0 / 0.6 - 0.9 cm LVPW Systolic Thickness 1.5 cm RV Chamber Size 3.2 cm LVOT Diameter 2.0 cm LV Ejection Fraction 2D Teich 84.2 % LV Ejection Fraction MOD 2C 74.8 % LV Ejection Fraction 2C AL 79.8 % LA Diameter 5.0 cm LA Width 2.7 cm LA Height 3.9 cm RA Width 1.8 cm RA Height 3.3 cm Aorta at Sinotubular Diameter 3.5 cm M-MODE LV Diastolic Diameter MM 4.6 cm 4.2 - 5.9 / 3.9 - 5.3 cm LV Systolic Diameter MM 2.5 cm LV Ejection Fraction MM Teich 77.0 % IVS Diastolic Thickness MM 1.6 cm 0.6 - 1.0 / 0.6 - 0.9 cm IVS Systolic Thickness MM 1.7 cm LVPW Diastolic Thickness MM 1.3 cm 0.6 - 1.0 / 0.6 - 0.9 cm LVPW Systolic Thickness MM 1.8 cm RV Diastolic Diameter MM 2.4 cm Aortic Annulus Diameter 4.0 cm LA Ao Ratio MM 1.3 MV E Point Septal Separation 0.3 cm DOPPLER AV Peak Velocity 143.0 cm/s LVOT Peak Velocity 102.0 cm/s AV Area Cont Eq vti 2.3 cm squared AV Area Cont Eq pk 2.3 cm squared MV Area PHT 3.5 cm squared Mitral E to A Ratio 0.9 MV E' Velocity 52.0 cm/s Mitral E to MV E' Ratio 14.3 Mitral E to LV E' Lateral Ratio 14.3 Mitral E to LV E' Septal Ratio 14.3 TV Peak E Velocity 83.0 cm/s Right Atrial Pressure 3.0 mmHg PV Peak Velocity 91.0 cm/s RV Acceleration Time 0.1 s RV Ejection Time 0.3 s RV AcT/ET 0.3 FINDINGS Left Ventricle Normal left ventricular size. LV systolic function is normal with EF of 60-65%. No regional wall motion abnormalities. Grade 1 diastolic dysfunction Right Ventricle The right ventricle is normal in size and function. Right Atrium The right atrium is normal in size. Left Atrium The left atrium is normal in size. Mitral Valve Structurally normal mitral valve without significant stenosis or prolapse. There is trace mitral regurgitation. Aortic Valve Structurally normal aortic valve without significant sclerosis or stenosis. There is no aortic regurgitation. Tricuspid Valve Structurally normal tricuspid valve without significant stenosis or regurgitation. Pulmonary artery systolic pressure is normal. Pulmonic Valve Structurally normal pulmonic valve without significant stenosis. There is no pulmonic regurgitation. Pericardium Normal pericardium without effusion. Aorta Dilated ascending aorta measuring 4.5 cm. CONCLUSIONS LV systolic function is normal with EF of 60-65% Grade 1 diastolic dysfunction Trace mitral regurgitation Dilated ascending aorta measuring 4.5 cm unchanged from prior echocardiogram from 10/2020 Compared to prior echocardiogram from 10/2020, no significant changes are noted Thom Matta MD (Electronically Signed) Final Date: 24 January 2021 23:01 S
[2021-01-24 18:09] LABS: SARS Covid-2 Antigen Negative (Negative)
[2021-01-24 18:10] LABS: Glucose Point of Care 186 mg/dL (70-110)
--- NOTE | 2021-01-24 19:54 | PC.NURSE ---
pt had very little abd discomfort today.plan for disada scan tomorrow.began on flagyl and cipro ivpb.
--- NOTE | 2021-01-24 20:19 | PC.NURSE ---
report given to devorah on .pt to transfer to [facility] via w/c.
[2021-01-24] MEDS: atorvastatin 40 mg Tablet PO (20:48)
[2021-01-24 20:54] LABS: Glucose Point of Care 148 mg/dL (70-110)
[2021-01-25] VITALS (13 sets, daily range): BP systolic 108–171; BP diastolic 67–106; PULSE 57–130; RESP 16–28; TEMP 36.4–37.3; O2SAT 90–98
--- NOTE | 2021-01-25 | NM_ITS ---
WS: [id number] NUCLEAR MEDICINE HIDA SCAN HISTORY: RUQ pain COMPARISON: 01/23/2021 TECHNIQUE: The patient was intravenously injected with 7.5 mCi of TC99m Mebrofenin. Immediate imaging over the right upper quadrant was followed by 5 minute image and additional images for a total of 60 minutes. Normal uptake of radiotracer throughout the liver. The gallbladder is never identified. At 120 minutes there is no radionuclide within the gallbladder. There is a very short segment of the distal cystic duct identified. Common bile duct is normal. Activity in the proximal small bowel was seen by 15 minutes. Good washout of the radiotracer from the liver by 60 minutes. NM/NM hepatobiliary wo phar [id number] IMPRESSION: 1. Gallbladder is not identified 120 minutes. Suspect cystic duct obstruction. 2. Normal common bile duct.
[2021-01-25] MEDS: heparin 5,000 unit/mL INJ 1 mL 5000 UNIT SUBCUT ×2 (05:10→17:57)
[2021-01-25] MEDS: ciprofloxacin 400 MG/200 ML PREMIX 200 MG IV (05:10)
[2021-01-25 05:43] LABS: Basophils % 0.2 %; Eosinophils % 0.1 %; Hematocrit 44.9 % (42.0-52.0); Hemoglobin 15.5 g/dL (11.7-16.6); Lymphocytes % 7.5 %; Mean Corpuscular HGB Conc 34.5 g/dL (30.0-36.0); Mean Corpuscular Hemoglobin 29.8 pg (28.0-34.0); Mean Corpuscular Volume 86.3 fl (80-94); Mean Platelet Volume 11.4 fL (7.4-10.4); Monocytes # 1.5 10^3/uL (0.2-0.9); Monocytes % 10.8 %; Neutrophils # 11.25 10^3/uL (1.8-7.7); Neutrophils % 80.8 %; Nucleated Red Blood Cells % 0 %; Platelet Count 222 10^3/cmm (130-400); Red Cell Distribution Width 13.8 % (12.1-15.1); White Blood Count 13.9 10^3/uL (4.0-10.0)
[2021-01-25 07:00] LABS: Alanine Aminotransferase 22 U/L (0-41); Albumin Level 3.5 g/dL (3.5-5.2); Alkaline Phosphatase 60 IU/L (40-130); Anion Gap 18.5 (5-19); Aspartate Amino Transferase 17 U/L (0-40); Blood Urea Nitrogen 16 mg/dL (8-23); Calcium 8.7 mg/dL (8.5-10.5); Carbon Dioxide 22 mmol/L (22-29); Chloride 92 mmol/L (98-107); Globulin 3.4 g/dL (1.3-4.6); Glucose 143 mg/dL (65-115); Magnesium 1.8 mg/dL (1.7-2.3); Osmolality Calculated 272 mOsm/kg (285-295); Potassium 3.5 mmol/L (3.5-5.1); Sodium 129 mmol/L (136-145); Total Bilirubin 1.3 mg/dL (0.15-1.2); Total Protein 6.9 g/dL (6.6-8.7)
[2021-01-25 09:34] LABS: Glucose Point of Care 149 mg/dL (70-110)
[2021-01-25] MEDS: metoprolol tartrate 50 mg Tablet 100 MG PO ×2 (10:15→17:58)
[2021-01-25] MEDS: losartan 50 mg Tablet 100 MG PO (10:15)
[2021-01-25] MEDS: metroNIDAZOLE IV 500 MG/100 ML PREMIX 100 MG IV ×2 (10:46→21:31)
--- NOTE | 2021-01-25 12:00 | P.CONIM_ITS ---
Providers/Reason For Consult Consulting Physician/Specialty*: General Surgery Dr. Yan Reason for Consult*: Cystic duct obstruction Attending Physician: Jamal Robles Primary Care Provider: Brissa Garland MD History of Present Illness History of Present Illness Heriberto Lyon is a 75 year old male who presented to the ER with chest pain and abdominal pain on 01/23/2021. Patient states that the pain was mainly on the right side and was radiating to the chest and back. Patient had some nausea but denies any vomiting, constipation or diarrhea. No hematemesis hematochezia or melena. He states that he has had intermittent episodes in the past similar to this but none significant enough to require hospitalization. Patient subsequently had a cardiac work-up and cardiac pathology was ruled out. He had a HIDA scan this morning which showed cystic duct obstruction. Review of Systems General: Reports: 10 or more systems reviewed and unremarkable except in HPI and below Meds/Allergies Home Medications and Allergies Home Medications Medication Instructions Recorded Confirmed Last Taken Type aspirin 81 mg tablet,delayed 81 mg PO DAILY 10/02/19 01/23/21 01/22/21 History release metformin 1,000 mg tablet 500 mg PO BID tab 10/02/19 01/23/21 01/19/21 History nitroglycerin 0.4 mg sublingual 0.4 mg SUBLINGUAL Q5M PRN 10/02/19 01/23/21 Unknown History tablet omeprazole 20 mg capsule,delayed 20 mg PO DAILY 10/02/19 01/23/21 01/23/21 History release metoprolol tartrate 100 mg tablet 100 mg PO BID 09/28/20 01/23/21 01/23/21 History hydrochlorothiazide 50 mg tablet 50 mg PO DAILY #30 tab 10/12/20 01/23/21 01/23/21 Rx potassium chloride 10 mEq 10 meq PO DAILY #30 cap 10/12/20 01/23/21 01/23/21 Rx capsule,extended release telmisartan 80 mg tablet 80 mg PO DAILY 10/12/20 01/23/21 01/23/21 History Allergies Allergy/AdvReac Type Severity Reaction Status Date / Time gabapentin Allergy Unknown Verified 09/28/20 11:03 lisinopril Allergy Unknown Verified 09/28/20 11:03 Current Medications Current Medications Generic Name Dose Route Start Last Admin Trade Name Freq PRN Reason Stop Dose Admin Aspirin 81 mg 01/24/21 09:00 01/24/21 08:50 Aspirin 81 Mg Ec Tablet PO 81 mg DAILY MOMO Administration Atorvastatin Calcium 40 mg 01/23/21 21:00 01/24/21 20:48 Atorvastatin 40 Mg Tablet PO 40 mg BEDTIME MOMO Administration Heparin Sodium (Porcine) 5,000 unit 01/23/21 17:30 01/25/21 05:10 Heparin 5,000 Unit/Ml Inj 1 Ml SUBCUT 5,000 unit Q12H MOMO Administration Ciprofloxacin/Dextrose 400 mg in 200 mls @ 200 mls/hr 01/24/21 16:00 01/25/21 05:10 Cipro IV 200 mls/hr Q12H MOMO Administration Protocol Metronidazole 500 mg in 100 mls @ 100 mls/hr 01/24/21 14:00 01/25/21 10:46 Flagyl Iv IV 100 mls/hr Q8H MOMO Administration Protocol Insulin Human Lispro 0 unit 01/23/21 18:00 01/24/21 18:03 Insulin Lispro 100 Unit/1 Ml SUBCUT 4 unit TIDWM MOMO Administration Protocol Losartan Potassium 100 mg 01/24/21 09:00 01/25/21 10:15 Losartan 50 Mg Tablet PO 100 mg DAILY MOMO Administration Metoprolol Tartrate 100 mg 01/23/21 18:00 01/25/21 10:15 Metoprolol Tartrate 50 Mg Tablet PO 100 mg BID MOMO Administration Morphine Sulfate 2 mg 01/23/21 16:45 01/24/21 07:12 Morphine 4 Mg/Ml Sdv 1 Ml IVP 2 mg Q4H PRN Administration SEVERE PAIN Pantoprazole Sodium 40 mg 01/24/21 18:00 01/24/21 18:[address] 40 Mg Tablet PO 40 mg BIDWM MOMO Administration PFSH Acute PFSH: Medical History (Updated 01/25/21 @ 10:38 by Thor Yan MD) Aortic root dilatation Diabetes GERD (gastroesophageal reflux disease) Hyperlipidemia Hypertension Thoracic ascending aortic aneurysm Surgical History (Updated 01/25/21 @ 12:01 by Thor Yan MD) Hx of appendectomy S/P tonsillectomy and adenoidectomy Status post colonoscopy Family History (Updated 01/23/21 @ 15:34 by Cruzito Avendano MD) Other CAD (coronary artery disease) Social History Smoking and tobacco status: former smoker Alcohol intake: current Alcohol intake frequency: holidays/special occasions only Vitals/I&O/Wt Last Vital Signs Temp 99.0 F 01/25/21 04:00 Pulse 130 H 01/25/21 04:00 Resp 20 H 01/25/21 04:00 BP 130/76 01/25/21 10:15 Pulse Ox 91 01/25/21 04:00 01/24/21 01/25/21 01/25/21 22:59 06:59 14:59 Intake Total 540 / 640 100 / 640 Balance 540 / 640 100 / 640 Weight last 48 hrs Weight 205 lb 1 oz Physical Exam Narrative: EXAM NARRATIVE: HEENT: Normocephalic Eye: Sclera /conjunctiva normal Respiratory and chest: Bilateral clear breath sounds on auscultation Cardiovascular: Normal S1 and S2 heart sounds Abdomen: Soft to palpation Neurological: Oriented to place person and time Skin: Intact, no lesions appreciated on gross exam A&P Assessment and plan (1) Obstruction of cystic duct: 75-year-old male who presented 2 days ago with right-sided chest pain and abdominal pain with nausea. His cardiac work-up was negative CT chest abdomen pelvis done 01/23/2021: Nil acute Ultrasound gallbladder: Nil acute HIDA scan: Cystic duct obstruction Discussed the findings with the patient, the risks, benefits and details of the surgery and patient would like to proceed with laparoscopic possible open cholecystectomy today. He is currently on therapeutic IV Cipro. 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
--- NOTE | 2021-01-25 13:02 | ANES.PREANE2 ---
Pre-Anesthetic Assessment Pre-Anesthetic Assessment: Height/Weight: Height 1.65 m Weight 93.015 kg Temp Pulse Resp BP Pulse Ox 99.0 F 130 H 20 H 130/76 91 01/25/21 04:00 01/25/21 04:00 01/25/21 04:00 01/25/21 10:15 01/25/21 04:00 Preop Diagnosis: Cystic duct obstruction Proposed Procedure: Operation Date: 01/25/21 13:25 Proposed Procedures p Laparoscopic Cholecystectomy(Not Applicable) - Thor aYn MD Familial anesthetic complications: None Was Beta Lisa taken within 24 hours: Yes Was Clonidine taken within 24 hours: N/A Last intake: NPO > 8hrs Social: Social History: No alcohol and No tobacco Exam: Pre-Anes Outpt Exam: alert, oriented x 3, clear to auscultation bilaterally and regular rate & rhythm Airway: Cervical ROM: WNL MP: 4 Dentition: Full CV/HEM: CV/HEM: HTN Comments: CTA head and neck (09/2017): No hemodynamically significant cervical internal Carotid artery stenosis. Minor degree of calcified atheromatous plaque. Mild stenosis of left vertebral artery. Mild posterior circulation atherosclerosis without stenosis. 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 Echocardiogram Dec 2017: normal heart function with ejection fraction of 55%. No significant valvular abnormality. Grade 1 DD. Dilated aortic root 43 mm and ascending aorta at 46 mm. EKG with sinus rhythm with first-degree AV block. Left axis deviation. Low QRS voltage in precordial leads. Event monitor with no arrhythmia and no patient's symptoms. CTA aorta with run off (11/2018) Pulmonary arteries: Normal. No pulmonary emboli. Aorta: There is mild ectasia the descending thoracic aorta which measures proximal 4.5 cm at the root.. Lungs: There is a minimal patchy groundglass opacity in the right upper lobe such as on image #36 which likely represent some focal inflammatory disease. Lungs are otherwise clear. Pleural space: Unremarkable. No pneumothorax. No pleural effusion. Heart: Unremarkable. No cardiomegaly. No pericardial effusion. IMPRESSION: 1. Minimal focal inflammatory change in the right upper lobe 2. Fatty liver 3. Cholelithiasis 4. No pulmonary embolism Exercise sestamibi MPI (12/2018) CONCLUSION: 1. Normal EKG response to treadmill exercise. 2. No exercise-induced chest pain or cardiac arrhythmia. 3. Excellent exercise tolerance, attained a maximum of 10.2 METs. The Henao treadmill score of 7.5. Maximum VO2 of 35.7 ml/KG/minute 4. Baseline hypertension with normal blood pressure response to exercise. IMPRESSIONS 1. Myocardial perfusion imaging is normal. 2. Overall left ventricular systolic function is normal without regional wall motion abnormalities. 3. The left ventricular ejection fraction is normal with a value of 79%. 4. This study suggests a low likelihood of angiographically significant coronary artery disease. GI: GI: GERD Metabolic: Metabolic: DM and Hyperlipidemia Anesthetic Plan: ASA status: 3 Anesthesia: General Risk of > 500 ml blood loss (7ml/kg in children): No Meds/Allergies Current Medications: Current Medications Generic Name Dose Route Start Last Admin Trade Name Freq PRN Reason Stop Dose Admin Aspirin 81 mg 01/24/21 09:00 01/24/21 08:50 Aspirin 81 Mg Ec Tablet PO 81 mg DAILY MOMO Administration Atorvastatin Calci um 40 mg 01/23/21 21:00 01/24/21 20:48 Atorvastatin 40 Mg Tablet PO 40 mg BEDTIME MOMO Administration Heparin Sodium (Po rcine) 5,000 unit 01/23/21 17:30 01/25/21 05:10 Heparin 5,000 Un it/Ml Inj 1 Ml SUBCUT 5,000 unit Q12H MOMO Administration Ciprofloxacin/Dext alaina 400 mg in 200 mls @ 200 mls/hr 01/24/21 16:00 01/25/21 05:10 Cipro IV 200 mls/hr Q12H MOMO Administration Protocol Metronidazole 500 mg in 100 mls @ 100 mls/hr 01/24/21 14:00 01/25/21 10:46 Flagyl Iv IV 100 mls/hr Q8H MOMO Administration Protocol Insulin Human Lisp ro 0 unit 01/23/21 18:00 01/24/21 18:03 Insulin Lispro 1 00 Unit/1 Ml SUBCUT 4 unit TIDWM MOMO Administration Protocol Losartan Potassium 100 mg 01/24/21 09:00 01/25/21 10:15 Losartan 50 Mg T ablet PO 100 mg DAILY MOMO Administration Metoprolol Tartrat e 100 mg 01/23/21 18:00 01/25/21 10:15 Metoprolol Tartr ate 50 Mg Tablet PO 100 mg BID MOMO Administration Morphine Sulfate 2 mg 01/23/21 16:45 01/24/21 07:12 Morphine 4 Mg/Ml Sdv 1 Ml IVP 2 mg Q4H PRN Administration SEVERE PAIN Pantoprazole Sodiu m 40 mg 01/24/21 18:00 01/24/21 18:[address] 40 Mg Tablet PO 40 mg BIDWM MOMO Administration PFSH Anesthesia PFSH: Medical History (Updated 01/25/21 @ 10:38 by Thor Yan MD) Aortic root dilatation Diabetes GERD (gastroesophageal reflux disease) Hyperlipidemia Hypertension Thoracic ascending aortic aneurysm Surgical History (Updated 01/25/21 @ 12:01 by Thor Yan MD) Hx of appendectomy S/P tonsillectomy and adenoidectomy Status post colonoscopy Family History (Updated 01/23/21 @ 15:34 by Cruzito Avendano MD) Other CAD (coronary artery disease) Social History Smoking and tobacco status: former smoker Alcohol intake: current Alcohol intake frequency: holidays/special occasions only Data Anesthesia CBC & Chem 7: 01/25/21 05:09 01/25/21 05:09 Other Labs: Laboratory Results - last 48 hr 01/23/21 01/23/21 01/23/21 12:04 13:20 17:05 WBC RBC Hgb Hct MCV MCH MCHC RDW Plt Count MPV Neut % (Auto) Lymph % (Auto) [place] % (Auto) Eos % (Auto) Baso % (Auto) Neut # (Auto) Lymph # (Auto) [place] # (Auto) Eos # (Auto) Baso # (Auto) Nucleated RBC % (auto) Nucleated RBCs # Sodium Potassium Chloride Carbon Dioxide Anion Gap BUN Creatinine GFR Calculation Glucose POC Glucose 149 H Estimat Average Glucose Hemoglobin A1c Calculated Osmolality Calcium Magnesium Total Bilirubin 0.5 Direct Bilirubin 0.20 GGT 23 AST 29 ALT 41 Alkaline Phosphatase 52 Troponin T 120 Minute 9.91 Delta Troponin T 0.91 Troponin T Hi Sens 6Hr Troponin T Hi Sens 6Hr Delta C-Reactive Protein 4.4 NT-Pro-B Natriuret Pep Total Protein 7.4 Albumin 4.3 Globulin 3.1 Triglycerides Cholesterol LDL Cholesterol, Calc HDL Cholesterol LDL/HDL Ratio Cholesterol/HDL Ratio Lipase Procalcitonin 0.04 TSH SARS-CoV-2 Ag (Rapid) 1001/23/21 01/24/21 17:51 19:50 03:37 WBC 11.8 H RBC 5.14 Hgb 15.0 Hct 45.2 MCV 87.9 MCH 29.2 MCHC 33.2 RDW 13.6 Plt Count 274 MPV 11.1 H Neut % (Auto) 75.6 Lymph % (Auto) 9.7 [place] % (Auto) 14.0 Eos % (Auto) 0.1 Baso % (Auto) 0.2 Neut # (Auto) 8.88 H Lymph # (Auto) 1.1 [place] # (Auto) 1.7 H Eos # (Auto) 0.0 Baso # (Auto) 0.0 Nucleated RBC % (auto) 0 Nucleated RBCs # 0.0 Sodium Potassium Chloride Carbon Dioxide Anion Gap BUN Creatinine GFR Calculation Glucose POC Glucose 159 H Estimat Average Glucose Hemoglobin A1c Calculated Osmolality Calcium Magnesium Total Bilirubin Direct Bilirubin GGT AST ALT Alkaline Phosphatase Troponin T 120 Minute Delta Troponin T Troponin T Hi Sens 6Hr 11.66 Troponin T Hi Sens 6Hr Delta 2.66 C-Reactive Protein NT-Pro-B Natriuret Pep Total Protein Albumin Globulin Triglycerides Cholesterol LDL Cholesterol, Calc HDL Cholesterol LDL/HDL Ratio Cholesterol/HDL Ratio Lipase Procalcitonin TSH SARS-CoV-2 Ag (Rapid) 01/24/21 01/24/21 01/24/21 03:37 03:37 03:37 WBC RBC Hgb Hct MCV MCH MCHC RDW Plt Count MPV Neut % (Auto) Lymph % (Auto) [place] % (Auto) Eos % (Auto) Baso % (Auto) Neut # (Auto) Lymph # (Auto) [place] # (Auto) Eos # (Auto) Baso # (Auto) Nucleated RBC % (auto) Nucleated RBCs # Sodium 134 L Potassium 3.5 Chloride 93 L Carbon Dioxide 27 Anion Gap 17.5 BUN 20 Creatinine 0.9 GFR Calculation Not Reportable Glucose 150 H POC Glucose Estimat Average Glucose 151 Hemoglobin A1c 6.9 H Calculated Osmolality 283 L Calcium 9.1 Magnesium 1.9 Total Bilirubin 0.9 Direct Bilirubin GGT AST 22 ALT 34 Alkaline Phosphatase 55 Troponin T 120 Minute Delta Troponin T Troponin T Hi Sens 6Hr Troponin T Hi Sens 6Hr Delta C-Reactive Protein NT-Pro-B Natriuret Pep 301 Total Protein 7.3 Albumin 4.1 Globulin 3.2 Triglycerides 206 H Cholesterol 140 LDL Cholesterol, Calc 52 HDL Cholesterol 47 L LDL/HDL Ratio 1.11 Cholesterol/HDL Ratio 2.98 Lipase Procalcitonin TSH 1.53 SARS-CoV-2 Ag (Rapid) 01/24/21 01/24/21 01/24/21 03:37 06:18 07:46 WBC RBC Hgb Hct MCV MCH MCHC RDW Plt Count MPV Neut % (Auto) Lymph % (Auto) [place] % (Auto) Eos % (Auto) Baso % (Auto) Neut # (Auto) Lymph # (Auto) [place] # (Auto) Eos # (Auto) Baso # (Auto) Nucleated RBC % (auto) Nucleated RBCs # Sodium Potassium Chloride Carbon Dioxide Anion Gap BUN Creatinine GFR Calculation Glucose POC Glucose 164 H 147 H Estimat Average Glucose Hemoglobin A1c Calculated Osmolality Calcium Magnesium Total Bilirubin Direct Bilirubin GGT AST ALT Alkaline Phosphatase Troponin T 120 Minute Delta Troponin T Troponin T Hi Sens 6Hr Troponin T Hi Sens 6Hr Delta C-Reactive Protein NT-Pro-B Natriuret Pep Total Protein Albumin Globulin Triglycerides Cholesterol LDL Cholesterol, Calc HDL Cholesterol LDL/HDL Ratio Cholesterol/HDL Ratio Lipase 26 Procalcitonin TSH SARS-CoV-2 Ag (Rapid) 01/24/21 01/24/21 01/24/21 11:00 14:00 17:44 WBC RBC Hgb Hct MCV MCH MCHC RDW Plt Count MPV Neut % (Auto) Lymph % (Auto) [place] % (Auto) Eos % (Auto) Baso % (Auto) Neut # (Auto) Lymph # (Auto) [place] # (Auto) Eos # (Auto) Baso # (Auto) Nucleated RBC % (auto) Nucleated RBCs # Sodium Potassium Chloride Carbon Dioxide Anion Gap BUN Creatinine GFR Calculation Glucose POC Glucose 171 H 186 H Estimat Average Glucose Hemoglobin A1c Calculated Osmolality Calcium Magnesium Total Bilirubin Direct Bilirubin GGT AST ALT Alkaline Phosphatase Troponin T 120 Minute Delta Troponin T Troponin T Hi Sens 6Hr Troponin T Hi Sens 6Hr Delta C-Reactive Protein NT-Pro-B Natriuret Pep Total Protein Albumin Globulin Triglycerides Cholesterol LDL Cholesterol, Calc HDL Cholesterol LDL/HDL Ratio Cholesterol/HDL Ratio Lipase Procalcitonin TSH SARS-CoV-2 Ag (Rapid) Negative 01/24/21 01/25/21 01/25/21 19:45 05:09 05:09 WBC 13.9 H RBC 5.20 Hgb 15.5 Hct 44.9 MCV 86.3 MCH 29.8 MCHC 34.5 RDW 13.8 Plt Count 222 MPV 11.4 H Neut % (Auto) 80.8 Lymph % (Auto) 7.5 [place] % (Auto) 10.8 Eos % (Auto) 0.1 Baso % (Auto) 0.2 Neut # (Auto) 11.25 H Lymph # (Auto) 1.0 [place] # (Auto) 1.5 H Eos # (Auto) 0.0 Baso # (Auto) 0.0 Nucleated RBC % (auto) 0 Nucleated RBCs # 0.0 Sodium 129 L Potassium 3.5 Chloride 92 L Carbon Dioxide 22 Anion Gap 18.5 BUN 16 Creatinine 0.9 GFR Calculation Not Reportable Glucose 143 H POC Glucose 148 H Estimat Average Glucose Hemoglobin A1c Calculated Osmolality 272 L Calcium 8.7 Magnesium 1.8 Total Bilirubin 1.3 H Direct Bilirubin GGT AST 17 ALT 22 Alkaline Phosphatase 60 Troponin T 120 Minute Delta Troponin T Troponin T Hi Sens 6Hr Troponin T Hi Sens 6Hr Delta C-Reactive Protein NT-Pro-B Natriuret Pep Total Protein 6.9 Albumin 3.5 Globulin 3.4 Triglycerides Cholesterol LDL Cholesterol, Calc HDL Cholesterol LDL/HDL Ratio Cholesterol/HDL Ratio Lipase Procalcitonin TSH SARS-CoV-2 Ag (Rapid) 01/25/21 09:31 WBC RBC Hgb Hct MCV MCH MCHC RDW Plt Count MPV Neut % (Auto) Lymph % (Auto) [place] % (Auto) Eos % (Auto) Baso % (Auto) Neut # (Auto) Lymph # (Auto) [place] # (Auto) Eos # (Auto) Baso # (Auto) Nucleated RBC % (auto) Nucleated RBCs # Sodium Potassium Chloride Carbon Dioxide Anion Gap BUN Creatinine GFR Calculation Glucose POC Glucose 149 H Estimat Average Glucose Hemoglobin A1c Calculated Osmolality Calcium Magnesium Total Bilirubin Direct Bilirubin GGT AST ALT Alkaline Phosphatase Troponin T 120 Minute Delta Troponin T Troponin T Hi Sens 6Hr Troponin T Hi Sens 6Hr Delta C-Reactive Protein NT-Pro-B Natriuret Pep Total Protein Albumin Globulin Triglycerides Cholesterol LDL Cholesterol, Calc HDL Cholesterol LDL/HDL Ratio Cholesterol/HDL Ratio Lipase Procalcitonin TSH SARS-CoV-2 Ag (Rapid) Cardiac Studies: Echocardiogram 01/24/21
--- NOTE | 2021-01-25 13:30 | NM_ITS ---
WS: [id number] NUCLEAR MEDICINE HIDA SCAN HISTORY: RUQ pain COMPARISON: 01/23/2021 TECHNIQUE: The patient was intravenously injected with 7.5 mCi of TC99m Mebrofenin. Immediate imaging over the right upper quadrant was followed by 5 minute image and additional images for a total of 60 minutes. Normal uptake of radiotracer throughout the liver. The gallbladder is never identified. At 120 minutes there is no radionuclide within the gallbladder. There is a very short segment of the distal cystic duct identified. Common bile duct is normal. Activity in the proximal small bowel was seen by 15 minutes. Good washout of the radiotracer from the liver by 60 minutes.
--- NOTE | 2021-01-25 15:36 | P.OP_ITS ---
Operative Report Date of procedure: January 25, 2021 Pre-op Diagnosis: Cystic duct obstruction on HIDA scan Post-op Diagnosis: Acute calculus cholecystitis Hydrops gallbladder Procedure Done: Laparoscopic cholecystectomy Specimens removed/disposition: Gallbladder Surgeon: Thor Yan Anesthesia: General Condition: stable Disposition: PACU Procedure: The patient was taken to the operating room and was intubated under g eneral anesthesia. After the antibiotic had been administered, the abdomen was prepped and draped in a sterile manner. Using a #15 blade, a 1 centimeter infraumbilical curvilinear incision was made and using an open Dena technique the peritoneal cavity was entered. A 10 millimeter port was placed and 15 millimeters of pneumoperitoneum was created. A 10 millimeter, 30 degrees scope was then introduced. Three 5 millimeter ports were placed in the epigastric, midclavicular and the anterior axillary line two fingerbreadths below the costal margin on the right side under the direct visualization. The gallbladder was acutely inflamed and distended with a thickened wall. Using an aspiration needle 60 cc of clear bile was aspirated. Ratcheted forceps were introduced into the lateral most port and was used to retract the fundus of the gallbladder cephalad and using forceps the infundibulum of the gallbladder was retracted laterally. Using L-hook cautery the peritoneum overlying the Calot's triangle was opened medially and laterally until the cystic duct and the cystic artery were skeletonized. Dissection was carried along the body of the gallbladder and after ensuring critical view of safety, 4 clips applied on the cystic duct and 3 clips applied on the cystic artery and cut leaving, 3 clips on the remaining portion of the duct and 2 clips on the remaining portion of the artery. The rest of the gallbladder was dissected off the liver using L-hook cautery. There was no bleeding or bile leaking noted from the gallbladder fossa and the clips appeared to be in place. An EndoCatch bag was introduced to remove the gallbladder. All the ports were removed under direct visualization and there was no bleeding noted from the port sites. The fascia of the umbilicus was clos ed using [id number] Vicryl sutures and the subcutaneous tissue was approximated using 3-0 Vicryl sutures. The skin at all four ports were closed using 4-0 Monocryl and Dermabond. A total of 10 millimeters of 0.5% Marcaine was infiltrated around the port sites. The patient was stable throughout the procedure.
--- NOTE | 2021-01-25 15:46 | P.PN_ITS ---
Subjective Subjective: Interval history: Persistent right upper quadrant tenderness. Otherwise doing well. No chest pain. No trouble breathing. Awaiting surgery. Vitals/I&O/Wt Last Vital Signs Temp 99.0 F 01/25/21 04:00 Pulse 130 H 01/25/21 04:00 Resp 20 H 01/25/21 04:00 BP 130/76 01/25/21 10:15 Pulse Ox 91 01/25/21 04:00 01/25/21 01/25/21 01/25/21 06:59 14:59 22:59 Intake Total 100 / 640 60 / 60 Balance 100 / 640 60 / 60 Weight last 48 hrs Weight 93.015 kg Physical Exam Narrative: EXAM NARRATIVE: at bedside. Const: COMMON NORMALS: no acute distress, patient oriented x3 and alert GENERAL APPEARANCE: cooperative NUTRITIONAL APPEARANCE: obese ORIENTATION/CONSCIOUSNESS: Yes awake OTHER: Somewhat [place]. HENMT: COMMON NORMALS: oropharynx normal Neck/C-Spine: COMMON NORMALS: no JVD Resp: COMMON NORMALS: normal respiratory effort and clear to auscultation bilaterally AUSCULTATION: clear to auscultation bilaterally Cardio: COMMON NORMALS: no JVD, regular rhythm, S1 normal heart sound present, S2 normal heart sound present and No murmurs present (Cardio) RHYTHM: regular rhythm HEART SOUNDS: S1 normal heart sound present and S2 normal heart sound present GI: COMMON NORMALS: Normal to inspection, nondistended, normoactive bowel sounds present PALPATION: Yes Tenderness to palpation present (GI) Details: RUQ Extremity: COMMON NORMALS: no joint enlargement and no pedal edema Neuro: COMMON NORMALS: patient oriented x3 and moves all extremities SENSORIUM/ORIENTATION: Yes alert Skin: COMMON NORMALS: no rashes or lesions noted GENERAL SKIN EXAM: no rashes or lesions noted Data : 01/25/21 05:09 01/25/21 05:09 A&P Assessment and plan (1) Abdominal pain: Occluded cystic duct on HIDA. Laparoscopic cholecystectomy for acute cholecystitis. The gallbladder on visualization acutely inflamed and distended with a thickened wall. Noted worsening leukocytosis, 13.9, respiratory rate last night mid to high 20s. Possible sepsis. Add blood cultures. Continue antibiotics. Status: Acute (2) Thoracic ascending aortic aneurysm: Status: Acute (3) Hyperlipidemia: Status: Acute Qualifiers: Hyperlipidemia type: mixed hyperlipidemia Qualified Code(s): E78.2 - Mixed hyperlipidemia (4) Diabetes: Status: Acute Qualifiers: Diabetes mellitus complication status: without complication Diabetes mellitus long-term insulin use: without long-term use Diabetes mellitus type: type 2 Qualified Code(s): E11.9 - Type 2 diabetes mellitus without complications Additional A&P Information GERD, continue Protonix, GI cocktail Attestations Medical Necessity Statement*: Continue admission for assessment management of acute cholecystitis, possible early sepsis, status post laparoscopic cholecystectomy. Coding Level of Care Code Acute Retail Merchandising Manager for Chg Fwd Exam Comprehensive Diagnoses Abdominal pain R10.9 Thoracic ascending aortic aneurysm I71.2 Hyperlipidemia E78.2 Hyperlipidemia type: mixed hyperlipidemia Diabetes E11.9 Diabetes mellitus complication status: without complication Diabetes mellitus long-term insulin use: without ferry terminal agent use Diabetes mellitus type: type 2
[2021-01-25 16:03] LABS: Glucose Point of Care 160 mg/dL (70-110)
[2021-01-25 17:10] LABS: Glucose Point of Care 211 mg/dL (70-110)
[2021-01-25] MEDS: insulin lispro 100 unit/1 mL SUBCUT (17:57)
[2021-01-25] MEDS: pantoprazole DR 40 mg Tablet PO (17:58)
[2021-01-25] MEDS: sennosides-docusate Tablet 1 TAB PO (17:58)
[2021-01-25] MEDS: lanolin oint 7 gm 1 APPLIC TOPICAL (19:08)
--- NOTE | 2021-01-25 20:08 | ANE.PACU2 ---
Inpatient post-anesthesia follow up: Airway intact: Yes Vital signs: Temperature 98.6 F Pulse Rate [Monito r] 70 Pulse Rate 79 Respiratory Rate 18 Blood Pressure [Ri ght Arm] 202/119 Blood Pressure 126/81 Pulse Oximetry 94 Oxygen Delivery Me thod Nasal Cannula Oxygen Flow Rate 2 Fraction of Inspir ed Oxygen Hydration adequate: Yes Nausea and vomiting: No Pain level: 2 Mental status: Baseline
[2021-01-25] MEDS: atorvastatin 40 mg Tablet PO (20:37)
[2021-01-25 20:58] LABS: Glucose Point of Care 180 mg/dL (70-110)
[2021-01-26] MEDS: ciprofloxacin 400 MG/200 ML PREMIX 200 MG IV (03:59)
[2021-01-26 04:00] VITALS: BP 110/70; PULSE 74; RESP 18; TEMP 36.8; O2SAT 95
[2021-01-26] MEDS: heparin 5,000 unit/mL INJ 1 mL 5000 UNIT SUBCUT (05:10)
[2021-01-26] MEDS: metroNIDAZOLE IV 500 MG/100 ML PREMIX 100 MG IV (05:11)
--- NOTE | 2021-01-26 06:03 | PC.NURSE ---
SHIFT SUMMARY Has had a good night. X4 stab incisions to RUQ and umbilicus are all C&D with dermabond closure. KURT. Is very pleasant. Has denied any pain tonight and has received no pain meds. Says his abdomen is not even tender this morning. Says he already even feels stronger than he did yesterday. Has been sitting on side of bed this morning drinking a cup of coffee. Says is ready for breakfast. Diet ordered. Ambulated in campuzano with nurse and tolerated well. Receiving IV antibiotics as ordered.
[2021-01-26 06:05] LABS: Basophils % 0.1 %; Hematocrit 43.4 % (42.0-52.0); Hemoglobin 14.3 g/dL (11.7-16.6); Lymphocytes # 0.8 10^3/uL (0.8-4.8); Lymphocytes % 6.1 %; Mean Corpuscular HGB Conc 32.9 g/dL (30.0-36.0); Mean Corpuscular Hemoglobin 29.1 pg (28.0-34.0); Mean Corpuscular Volume 88.2 fl (80-94); Monocytes # 1.3 10^3/uL (0.2-0.9); Monocytes % 10.5 %; Neutrophils # 10.36 10^3/uL (1.8-7.7); Neutrophils % 82.7 %; Nucleated Red Blood Cells % 0 %; Platelet Count 246 10^3/cmm (130-400); Red Blood Count 4.92 10^6/uL (4.1-5.3); Red Cell Distribution Width 13.9 % (12.1-15.1); White Blood Count 12.5 10^3/uL (4.0-10.0)
[2021-01-26 06:30] LABS: Alanine Aminotransferase 24 U/L (0-41); Albumin Level 3.3 g/dL (3.5-5.2); Alkaline Phosphatase 50 IU/L (40-130); Anion Gap 17.9 (5-19); Aspartate Amino Transferase 26 U/L (0-40); Blood Urea Nitrogen 23 mg/dL (8-23); Calcium 8.4 mg/dL (8.5-10.5); Carbon Dioxide 22 mmol/L (22-29); Chloride 95 mmol/L (98-107); Globulin 3.9 g/dL (1.3-4.6); Glucose 158 mg/dL (65-115); Magnesium 2.1 mg/dL (1.7-2.3); Osmolality Calculated 279 mOsm/kg (285-295); Potassium 3.9 mmol/L (3.5-5.1); Sodium 131 mmol/L (136-145); Total Bilirubin 0.7 mg/dL (0.15-1.2); Total Protein 7.2 g/dL (6.6-8.7)
[2021-01-26 07:13] LABS: Glucose Point of Care 154 mg/dL (70-110)
--- NOTE | 2021-01-26 07:41 | PM.PN ---
Subjective Subjective: Interval history: Patient feels great, denies any nausea or vomiting, tolerating clear liquid diet Vitals/I&O/Wt Last Vital Signs Temp 98.2 F 01/26/21 04:00 Pulse 74 01/26/21 04:00 Resp 18 01/26/21 04:00 BP 110/70 01/26/21 04:00 Pulse Ox 95 01/26/21 04:00 01/25/21 01/26/21 01/26/21 22:59 06:59 14:59 Intake Total 320 / 1280 900 / 1280 Output Total 50 / 450 400 / 450 Balance 270 / 830 500 / 830 Physical Exam Narrative: EXAM NARRATIVE: Abdomen: Soft, nontender, nonrigid, incisions healing well Data : 01/26/21 05:48 01/26/21 05:48 Micro: Microbiology 01/25/21 17:03 Blood Culture - Preliminary Blood SPECIMEN COLLECTED 01/25/21 16:55 Blood Culture - Preliminary Blood SPECIMEN COLLECTED A&P Assessment and plan (1) Status post laparoscopic cholecystectomy: Overall doing well Advance to regular diet DC home today Prescriptions and postop instructions placed in the chart Status: Acute Attestations Medical Necessity Statement*: As per primary Coding Level of Care Code Acute Income Tax Return Preparer for Bautista Fwemilia Diagnoses Status post laparoscopic cholecystectomy Z90.49
[2021-01-26 08:00] VITALS: BP 119/78; PULSE 70; RESP 17; TEMP 36.9; O2SAT 93
[2021-01-26] MEDS: insulin lispro 100 unit/1 mL SUBCUT ×2 (08:20→12:12)
[2021-01-26 08:21] VITALS: BP 119/78
[2021-01-26] MEDS: losartan 50 mg Tablet 100 MG PO (08:21)
[2021-01-26] MEDS: pantoprazole DR 40 mg Tablet PO (08:21)
[2021-01-26] MEDS: aspirin 81 mg EC Tablet PO (08:21)
[2021-01-26] MEDS: sennosides-docusate Tablet 1 TAB PO (08:22)
[2021-01-26] MEDS: metoprolol tartrate 50 mg Tablet 100 MG PO (08:22)
[2021-01-26 10:56] VITALS: BP 123/79; PULSE 70; RESP 18; TEMP 36.7; O2SAT 94
[2021-01-26 11:55] LABS: Glucose Point of Care 216 mg/dL (70-110)
--- NOTE | 2021-01-26 13:14 | PM.DCS ---
Discharge Providers Date of Admission: 01/24/21 14:01 Date of Discharge: January 26, 2021 Attending Provider at Admission: Cruzito Avendano MD Attending Provider at Discharge: Jamal Robles Primary Care Provider: Brissa Garland MD Diagnoses at Discharge Discharge Diagnosis (1) Status post laparoscopic cholecystectomy: Status: Acute Reason for Visit Reason for Visit: CP, BP 202/122 Hospital Course Hospital Course Pleasant 75-year-old gentleman with history of ascending thoracic aortic aneurysm, HTN, DM 2, HLD, GERD was admitted for assessment of management of right upper quadrant pain, initially thought to be chest pain, underwent assessment for possible [place], without evidence of PE on presentation, with noted chronic ascending thoracic aortic aneurysm on CTA chest, unremarkable CT angiogram abdomen pelvis. Gallbladder ultrasound initially without signs of cholecystitis, but with noted cholelithiasis. Liver parameters initially normal, but with persistent right upper quadrant pain, leukocytosis, started on antibiotic therapy for possible cholecystitis, subsequently with rising bilirubin to 1.3. HIDA scan showing findings compatible with cystic duct obstruction. Underwent laparoscopic cholecystectomy with finding of inflamed gallbladder with thickened wall. With some persistence of leukocytosis which is now improving. He is doing better. Tolerating oral intake. Feels ready to return home, cleared for discharge from surgery perspective with follow-up in office. Physical Exam Const: COMMON NORMALS: no acute distress, patient oriented x3 and alert GENERAL APPEARANCE: cooperative and comfortable NUTRITIONAL APPEARANCE: obese ORIENTATION/CONSCIOUSNESS: Yes awake OTHER: Somewhat [place]. HENMT: COMMON NORMALS: oropharynx normal Neck/C-Spine: COMMON NORMALS: no JVD Resp: COMMON NORMALS: normal respiratory effort and clear to auscultation bilaterally AUSCULTATION: clear to auscultation bilaterally Cardio: COMMON NORMALS: no JVD, regular rhythm, S1 normal heart sound present, S2 normal heart sound present and No murmurs present (Cardio) RHYTHM: regular rhythm HEART SOUNDS: S1 normal heart sound present and S2 normal heart sound present GI: COMMON NORMALS: Normal to inspection, nondistended, normoactive bowel sounds present and non-tender Extremity: COMMON NORMALS: no joint enlargement and no pedal edema Neuro: COMMON NORMALS: patient oriented x3 and moves all extremities SENSORIUM/ORIENTATION: Yes alert Skin: COMMON NORMALS: no rashes or lesions noted GENERAL SKIN EXAM: no rashes or lesions noted Discharge Data Data Completed and Pending: Completed Studies During Hospitalization Category Date Time Status CT angio chest ab domen pelvis Urgen t Cat Scan 01/23/21 11:46 Completed XR chest 1V jose f ble [id number] Urgent Exams 01/23/21 11:18 Completed NM hepatobiliary w phar* [id number] Rout ine Nuc Med 01/25/21 13:30 Completed CV. echo complete * [id number] Routine Ultrasound 01/24/21 17:49 Completed US gall bladder 7 [id number] Urgent Ultrasound 01/23/21 15:17 Completed Pending at discharge Category Date Time Status ES surgery / GI i mages Routine Exams 01/25/21 12:49 Taken Blood Culture Sta t Lab 01/25/21 17:03 Results Comprehensive Met abolic Panel AM LA BS Lab 01/27/21 04:00 Ordered Pathology: Surgic al [PTH] Routine Pth 01/25/21 15:53 Ordered Labs from last 24 hours 01/26/21 01/26/21 01/26/21 10:55 06:54 05:48 WBC RBC Hgb Hct MCV MCH MCHC RDW Plt Count MPV Neut % (Auto) Lymph % (Auto) [place] % (Auto) Eos % (Auto) Baso % (Auto) Neut # (Auto) Lymph # (Auto) [place] # (Auto) Eos # (Auto) Baso # (Auto) Nucleated RBC % (a uto) Nucleated RBCs # Sodium 131 L Potassium 3.9 Chloride 95 L Carbon Dioxide 22 Anion Gap 17.9 BUN 23 Creatinine 1.1 GFR Calculation Not Reportable Glucose 158 H POC Glucose 216 H 154 H Calculated Osmolal ity 279 L Calcium 8.4 L Magnesium 2.1 Total Bilirubin 0.7 AST 26 ALT 24 Alkaline Phosphata se 50 Total Protein 7.2 Albumin 3.3 L Globulin 3.9 01/26/21 01/25/21 01/25/21 05:48 20:56 17:07 WBC 12.5 H RBC 4.92 Hgb 14.3 Hct 43.4 MCV 88.2 MCH 29.1 MCHC 32.9 RDW 13.9 Plt Count 246 MPV 11.0 H Neut % (Auto) 82.7 Lymph % (Auto) 6.1 [place] % (Auto) 10.5 Eos % (Auto) 0.0 Baso % (Auto) 0.1 Neut # (Auto) 10.36 H Lymph # (Auto) 0.8 [place] # (Auto) 1.3 H Eos # (Auto) 0.0 Baso # (Auto) 0.0 Nucleated RBC % (a uto) 0 Nucleated RBCs # 0.0 Sodium Potassium Chloride Carbon Dioxide Anion Gap BUN Creatinine GFR Calculation Glucose POC Glucose 180 H 211 H Calculated Osmolal ity Calcium Magnesium Total Bilirubin AST ALT Alkaline Phosphata se Total Protein Albumin Globulin 01/25/21 15:56 WBC RBC Hgb Hct MCV MCH MCHC RDW Plt Count MPV Neut % (Auto) Lymph % (Auto) [place] % (Auto) Eos % (Auto) Baso % (Auto) Neut # (Auto) Lymph # (Auto) [place] # (Auto) Eos # (Auto) Baso # (Auto) Nucleated RBC % (a uto) Nucleated RBCs # Sodium Potassium Chloride Carbon Dioxide Anion Gap BUN Creatinine GFR Calculation Glucose POC Glucose 160 H Calculated Osmolal ity Calcium Magnesium Total Bilirubin AST ALT Alkaline Phosphata se Total Protein Albumin Globulin Vitals: Last Vital Signs Temp 98.0 F 01/26/21 10:56 Pulse 70 01/26/21 10:56 Resp 18 01/26/21 10:56 BP 123/79 01/26/21 10:56 Pulse Ox 94 01/26/21 10:56 Discharge Plan Discharge Patient Disposition: Home Condition: Stable Prescriptions: New hydrocodone-acetaminophen 5-325 mg tablet 1 tab PO Q6H PRN (Reason: pain) Qty: 20 RF: 0 docusate sodium [Colace] 100 mg capsule 100 mg PO BID Qty: 30 RF: 0 levofloxacin 750 mg tablet 750 mg PO DAILY 5 Days RF: 0 metronidazole [Flagyl] 500 mg tablet 500 mg PO Q8H 5 Days Qty: 15 RF: 0 ondansetron HCl [Zofran] 4 mg tablet 4 mg PO Q6H PRN (Reason: nausea and vomiting) Qty: 20 RF: 0 Continued aspirin [Aspir-81] 81 mg tablet,delayed release (DR/EC) 81 mg PO DAILY RF: 0 metformin 1,000 mg tablet 500 mg PO BID RF: 0 nitroglycerin 0.4 mg tablet, sublingual 0.4 mg SUBLINGUAL Q5M PRN (Reason: Chest Pain) RF: 0 omeprazole 20 mg capsule,delayed release(DR/EC) 20 mg PO DAILY RF: 0 metoprolol tartrate 100 mg tablet 100 mg PO BID RF: 0 potassium chloride 10 mEq capsule, extended release 10 meq PO DAILY Qty: 30 RF: 3 telmisartan 80 mg tablet 80 mg PO DAILY RF: 0 hydrochlorothiazide 50 mg tablet 50 mg PO DAILY Qty: 30 RF: 3 Discharge Orders: Discharge Order (Routine); Ordered 01/26/21 Ordered By: Jamal Robles Referrals: Brissa Garland MD [Primary Care Provider] - 4-7 days Thor Yan MD [Physician] - 2 weeks Patient Instructions: Opioid Safety Activity Restrictions/Additional Instructions: Diet Advance to normal diet as tolerated, increase fluid intake as much as possible. Activity Avoid strenuous activity for 2 weeks but continue with daily activities including walking as tolerated. Do not lift more than 10 pounds for 2 weeks Return to work/school You can return to work/ school whenever you feel ready as long as you don?t have to lift more than 10 pounds at work. If you have paperwork that needs to be completed for time off from work, please contact my office Driving You can resume driving once you stop using narcotic pain medications, and transition to non-opioid pain medications like Tylenol, Motrin, Aleve, etc. Medications Pain Take opioid pain medications as prescribed and transition to non-opioid pain medications like Tylenol, Motrin, Aleve etc. over the next few days. The goal of the pain medications is to make the pain bearable and not to be pain free since you recently had surgery. Resume all home medications after surgery as per the medication reconciliation list Nausea Nausea is common after surgery, take nausea medications as needed and stay on a liquid bland diet until nausea resolves. Constipation The combination of surgery, anesthesia and pain medications can result in constipation. Take stool softeners as prescribed. If you do not have a bowel movement in 3 days, please take an mewb-hxj-cieceru laxative like MiraLAX to address the constipation. Shower It is ok to shower but avoid getting the wound wet for 48 hours after surgery. Do not soak in bathtub, swimming pool or hot tub for 2 weeks. Wound care If glue has been used on your incisions after surgery, the glue on the incision will peel slowly over the next two weeks. The stitches used are dissolvable and will not need to be removed. Do not apply antibiotics or other medications on the incision Problems with the wound: you can develop some redness around the incision from bruising after surgery. If there is increasing pain, redness, tenderness around the incision with or without drainage, please contact my office to rule out an infection. Sometimes the skin at the incisions can separate, resulting in reopening of the wound. Cover the wound with antibiotic cream and sterile dressings and contact my office. Contact physician Call the office at [phone] during office hours or go the Emergency Room ?Fever to 100.4 or greater ?Shaking chills ?Pain that increases over time ?Redness, warmth, or pus draining from incision sites ?Persistent nausea or inability to take in liquids Please follow-up with your primary doctor with usual follow-up regarding thoracic aortic aneurysm. Diabetes, hypercholesterolemia, and other chronic problems. Discharge Attestations Time Spent in Discharge Care*: greater than 30 min Quality Metrics Clinical Quality Measures During this hospital stay, did patient experience: None Coding Level of Care Code Acute [facility] [place] note Diagnoses Status post laparoscopic cholecystectomy Z90.49
[2021-01-26 14:07] VITALS: BP 123/79; PULSE 70; RESP 18; TEMP 36.7; O2SAT 94
--- NOTE | 2021-01-27 12:36 | PC.SOCIAL ---
discharge follow up call made, spoke with patient. patient picked up all medications from the pharmacy and he is taking as directed. patient denies pain. patient has advanced his diet and is tolerating well. discussed weight restriction with patient of 10 lbs for the next 2 weeks and no strenuous activity but he can continue to walk. patient given follow up appointment dates and times.
== END 2021-01-26 14:08 | disposition home or self-care (01) | DRG 419 ==
LOC: ER 12:44 → CSU 15:29 → MEDSURG 01-24 20:19
PROVIDERS: Surgery; Admitting Provider Family Medicine; Emergency Provider Emergency Medicine; PCP Family Medicine; Visit Provider Internal Medicine
PROC: 0FT44ZZ Resection of Gallbladder, Percutaneous Endoscopic Approach (ICD-10-PCS; CPT 47562; principal; 2021-01-25 13:25)
DX: K80.00 Calculus of gallbladder with acute cholecystitis without obstruction (principal); I10 Essential (primary) hypertension; I71.6 Thoracoabdominal aortic aneurysm, without rupture; E11.9 Type 2 diabetes mellitus without complications; K21.9 Gastro-esophageal reflux disease without esophagitis; E78.2 Mixed hyperlipidemia; Z87.891 Personal history of nicotine dependence; Z86.73 Personal history of transient ischemic attack (TIA), and cerebral infarction without residual deficits; Z79.82 Long term (current) use of aspirin
CPT/HCPCS: 36415; 36416; 71045; 71275; 74174; 76705; 78226; 78227; 80048; 80053; 80061; 80076; 82962; 82977; 83036; 83690; 83735; 83880; 84145; 84443; 84484; 85025; 86140; 87040; 87426; 88304; 93005; 93306; 94664; 96365; 96367; 96372; 96375; 99285; A9537; G0378; J0690; J0744; J1100; J1644; J1815; J2270; J2405; J2704; J2710; J3010; J3490; Q9967; S0030

== ENCOUNTER → 2021-08-05 10:03 | Outpatient (BNVA) | payer OTHER, SELFPAY | PROVIDERS: PCP Family Medicine; Visit Provider Internal Medicine | DX: I48.20 Chronic atrial fibrillation, unspecified (principal); I49.3 Ventricular premature depolarization; I44.0 Atrioventricular block, first degree; I47.1 Supraventricular tachycardia | CPT/HCPCS: 93225 ==

== ENCOUNTER → 2021-08-13 11:32 | Outpatient (BNVA) | payer OTHER, SELFPAY | PROVIDERS: PCP Family Medicine; Visit Provider Internal Medicine Cardiovascular Disease | DX: I10 Essential (primary) hypertension (principal); E78.2 Mixed hyperlipidemia; I77.810 Thoracic aortic ectasia | CPT/HCPCS: 99214 ==

== ENCOUNTER 2021-09-09 15:06 | Emergency (ER) | payer OTHER, MEDICARE, SELFPAY ==
[2021-09-09 15:15] VITALS: BP 114/85; PULSE 116; RESP 14; TEMP 36.4; O2SAT 96
--- NOTE | 2021-09-09 16:06 | XRR_ITS ---
PROCEDURE INFORMATION: Exam: XR Right Knee Exam date and time: 09/09/2021 4:48 PM Age: 75 years old Clinical indication: Pain; Knee; Right; Additional info: Pain and swelling of right knee TECHNIQUE: Imaging protocol: XR Right knee. Views: 3 views. COMPARISON: No relevant prior studies available. FINDINGS: Bones/joints: Osseous structures are intact. Negative for fracture. Joint spaces are preserved. Soft tissues: Normal. XR/XR knee RT 3V* [id number] IMPRESSION: No acute findings.
--- NOTE | 2021-09-09 16:06 | USR_ITS ---
PROCEDURE INFORMATION: Exam: US Duplex Right Lower Extremity Veins, Limited Exam date and time: 09/09/2021 4:54 PM Age: 75 years old Clinical indication: Pain; Leg, lower; Right; Additional info: Right knee swelling and pain, no injury TECHNIQUE: Imaging protocol: Real-time Duplex ultrasound of the Right Lower Extremity with 2-D brown scale, color Doppler flow and spectral waveform analysis with image documentation. Limited exam was focused on the right lower extremity veins. COMPARISON: CR (LOW EXM, ) 09/09/2021 4:48 PM FINDINGS: Right deep veins: Unremarkable. The common femoral, femoral, proximal profunda femoral and popliteal veins are patent without thrombus. Normal Doppler waveforms. Normal compressibility and/or augmentation response. Right superficial veins: Unremarkable. Saphenofemoral junction is patent without thrombus. Soft tissues: Unremarkable. US/[place] [id number] IMPRESSION: No evidence of deep vein thrombosis.
--- NOTE | 2021-09-09 16:08 | W.ED.EXTPRO ---
Documented by User: MARIA DE JESUS Fowler 09/10/21 12:14 HPI - Extremity Problem General: Chief complaint: Extremity Injury, Lower Stated complaint: Pain in Left foot going into his leg now Time Seen by Provider: 09/09/21 15:39 History of Present Illness: Patient is a 75-year-old male comes to the ED with right lower extremity pain and swelling. Symptoms started on Monday. His pain and swelling is all throughout his right knee. Most of his pain and tenderness is in the back of his knee. He is unable to bear weight on right leg. He denies any injury or trauma to cause pain. Patient did state that just traveled back to [place] from [place] via car ride on Monday. Denies any chest pain, shortness of breath or hemoptysis. Associated symptoms: Deny chest pain, fever(s) or rash Review of Systems Const: Denies: fever(s), chills or fatigue Eyes: Denies: change in vision or eye discomfort ENMT: Denies: throat pain, odynophagia, nasal discharge or nasal congestion Card: Denies: chest pain, palpitations, edema, swelling of feet/ankles, dyspnea on exertion or orthopnea Resp: Denies: dyspnea, productive cough or non-productive cough GI: Denies: abdominal pain, nausea, vomiting, diarrhea, constipation or hematochezia : Denies: flank pain, difficulty urinating, dysuria or hematuria Musc: Reports: extremity pain (right leg) and extremity swelling (right knee); Denies: neck pain or back pain Skin/Breast: Denies: rash or new lesions Neuro: Denies: headache(s), numbness in extremities or weakness in extremities [facility] ED PFSH: Medical History Aortic root dilatation Diabetes GERD (gastroesophageal reflux disease) Hyperlipidemia Hypertension Obstruction of cystic duct Thoracic ascending aortic aneurysm Surgical History Hx of appendectomy S/P tonsillectomy and adenoidectomy Status post colonoscopy Status post laparoscopic cholecystectomy (01/25/21) Family History Other CAD (coronary artery disease) Social History Smoking and tobacco status: never smoked Alcohol intake: current Alcohol intake frequency: holidays/special occasions only Physical Exam Const: COMMON NORMALS: patient oriented x3 HENMT: COMMON NORMALS: normocephalic HEAD & SCALP: normocephalic MOUTH: Normal oral and palatal mucosa present THROAT: posterior oropharynx normal and uvula midline Neck/C-Spine: COMMON NORMALS: supple GENERAL: Yes normal visual inspection Resp: COMMON NORMALS: normal respiratory effort, No retractions, No use of accessory muscles and clear to auscultation bilaterally AUSCULTATION: clear to auscultation bilaterally Cardio: COMMON NORMALS: regular rate, regular rhythm, S1 normal heart sound present, S2 normal heart sound present, No gallops present (Cardio), No clicks present (Cardio), No murmurs present (Cardio) and Peripheral pulses 2+ throughout RATE: regular rate RHYTHM: regular rhythm HEART SOUNDS: S1 normal heart sound present and S2 normal heart sound present PERIPHERAL PULSES: Peripheral pulses 2+ throughout GI: COMMON NORMALS: Normal to inspection, nondistended, normoactive bowel sounds present, Soft to palpation, non-tender and no masses PALPATION: Yes Soft to palpation : COMMON NORMALS: Yes no CVA tenderness BLADDER/KIDNEY EXAM: Yes no CVA tenderness Back/Pelvis: COMMON NORMALS: no CVA tenderness Extremity: COMMON NORMALS: no calf tenderness and no pedal edema NARRATIVE EXTREMITY EXAM: Right knee?swelling throughout knee noted. Tenderness to posterior aspect of knee. Limited range of motion due to pain. Neurovascular tact distally. GENERAL: Yes normal exam except as noted Neuro: COMMON NORMALS: patient oriented x3 and moves all extremities Skin: GENERAL SKIN EXAM: dry skin Course Vital Signs: Vital signs: Vital Signs Temperature 98.5 F 09/09/21 18:05 Pulse Rate 72 09/09/21 18:05 Respiratory Rate 16 09/09/21 18:05 Blood Pressure 150/86 09/09/21 18:05 Pulse Oximetry 95 09/09/21 18:05 MDM - Extremity (Nontraumatic) Lab Data Radiology Impressions Knee X-Ray 09/09/21 16:06 IMPRESSION: No acute findings. Venous Duplex 09/09/21 16:06 IMPRESSION: No evidence of deep vein thrombosis. Discharge Plan Discharge Patient Disposition: Home Clinical Impression: Bursitis of right knee Qualifiers: Knee bursitis location: unspecified Qualified Code(s): M70.51 - Other bursitis of knee, right knee Condition: Stable Prescriptions: New Bactrim DS 800-160 mg tablet 1 tab PO DAILY 7 Days Qty: 14 0RF hydrocodone-acetaminophen 5-325 mg tablet 1 tab PO Q6H PRN (Reason: pain (scale score 7-10)) Qty: 10 0RF naproxen 500 mg tablet 500 mg PO BID PRN (Reason: pain) Qty: 20 0RF No Action hydrochlorothiazide 50 mg tablet 50 mg PO TID 0RF aspirin [Aspir-81] 81 mg tablet,delayed release (DR/EC) 81 mg PO DAILY 0RF metformin 1,000 mg tablet 500 mg PO BID 0RF nitroglycerin 0.4 mg tablet, sublingual 0.4 mg SUBLINGUAL Q5M PRN (Reason: Chest Pain) 0RF Rx Instructions: do not exceed 3 doses per episode omeprazole 20 mg capsule,delayed release(DR/EC) 20 mg PO DAILY 0RF metoprolol tartrate 100 mg tablet 100 mg PO BID 0RF telmisartan 80 mg tablet 80 mg PO DAILY 0RF potassium chloride 10 mEq capsule, extended release 10 meq PO DAILY Qty: 90 1RF Discharge Orders: Discharge ED (Routine); Ordered 09/09/21 Ordered By: Esteban Colon Referrals: Brissa Garland MD [Primary Care Provider] - Discharge Diet: Usual diet Discharge Activity: Increase activity as tolerated Patient Instructions: Knee Bursitis (ED) Activity Restrictions/Additional Instructions: Home and rest. Activity as tolerated. Take antibiotic Bactrim 1 tablet twice a day for 7 days. Use naproxen twice daily for pain and inflammation. Take the naproxen routinely until complete. Use hydrocodone for breakthrough pain 1 tablet every 6 hours as needed for severe pain. Use ice or heat for further pain relief. Drink plenty of water with medications. Follow-up with primary care for further instruction. Sign Out Sign Out Data: Patient Sign Out occurred on 09/09/21 at 17:07. Patient's care was discussed, and care was transferred from to Esteban Colon. Coding Level of Care Code ED Spa Attendant for Chg Fwd Exam Comprehensive Documented by User: BROCK Adamson 09/09/21 18:13 HPI - Extremity Problem General: Chief complaint: Extremity Injury, Lower Stated complaint: Pain in Left foot going into his leg now Time Seen by Provider: 09/09/21 15:39 PFSH ED PFSH: Medical History Aortic root dilatation Diabetes GERD (gastroesophageal reflux disease) Hyperlipidemia Hypertension Obstruction of cystic duct Thoracic ascending aortic aneurysm Surgical History Hx of appendectomy S/P tonsillectomy and adenoidectomy Status post colonoscopy Status post laparoscopic cholecystectomy (01/25/21) Family History Other CAD (coronary artery disease) Social History Smoking and tobacco status: never smoked Alcohol intake: current Alcohol intake frequency: holidays/special occasions only Course Vital Signs: Vital signs: Vital Signs Temperature 98.5 F 09/09/21 18:05 Pulse Rate 72 09/09/21 18:05 Respiratory Rate 16 09/09/21 18:05 Blood Pressure 150/86 09/09/21 18:05 Pulse Oximetry 95 09/09/21 18:05 MDM - Extremity (Nontraumatic) Medical Decision Making 75-year-old male patient comes in today with complaints of right knee pain. On exam patient complained of pain in the back of the knee and then the front of the knee and the sides of the knee. On exam patient has minimal swelling. Distal pulses and sensations were intact. Patient denied any acute or new injury. Differential diagnosis includes but not limited to DVT, osteoarthritis, bursitis. I had received this patient from Yousif Streeter PA-C. On my exam I noted the patient had some erythema and tenderness to the anterior part of the knee I have strong suspicion for a bursitis of the knee. We will go ahead and cover for bacterial infection with Bactrim. Patient did have some abrasions to the knee in which he reported some scratching due to some luna. Patient be placed on Bactrim twice a day for 10 days. Patient was given a dose of dexamethasone for pain and inflammation. Patient was given a short course of hydrocodone for further pain relief. And put on naproxen twice daily. Patient reported understanding of care plan need for follow-up in 3 days with primary care or return to the ER for worsening symptoms. Lab Data Radiology Impressions Knee X-Ray 09/09/21 16:06 IMPRESSION: No acute findings. Venous Duplex 09/09/21 16:06 IMPRESSION: No evidence of deep vein thrombosis. Discharge Plan Discharge Patient Disposition: Home Clinical Impression: Bursitis of right knee Qualifiers: Knee bursitis location: unspecified Qualified Code(s): M70.51 - Other bursitis of knee, right knee Condition: Stable Prescriptions: New Bactrim DS 800-160 mg tablet 1 tab PO DAILY 7 Days Qty: 14 0RF hydrocodone-acetaminophen 5-325 mg tablet 1 tab PO Q6H PRN (Reason: pain (scale score 7-10)) Qty: 10 0RF naproxen 500 mg tablet 500 mg PO BID PRN (Reason: pain) Qty: 20 0RF No Action hydrochlorothiazide 50 mg tablet 50 mg PO TID 0RF aspirin [Aspir-81] 81 mg tablet,delayed release (DR/EC) 81 mg PO DAILY 0RF metformin 1,000 mg tablet 500 mg PO BID 0RF nitroglycerin 0.4 mg tablet, sublingual 0.4 mg SUBLINGUAL Q5M PRN (Reason: Chest Pain) 0RF Rx Instructions: do not exceed 3 doses per episode omeprazole 20 mg capsule,delayed release(DR/EC) 20 mg PO DAILY 0RF metoprolol tartrate 100 mg tablet 100 mg PO BID 0RF telmisartan 80 mg tablet 80 mg PO DAILY 0RF potassium chloride 10 mEq capsule, extended release 10 meq PO DAILY Qty: 90 1RF Discharge Orders: Discharge ED (Routine); Ordered 09/09/21 Ordered By: Esteban Colon Referrals: Brissa Garland MD [Primary Care Provider] - Discharge Diet: Usual diet Discharge Activity: Increase activity as tolerated Patient Instructions: Knee Bursitis (ED) Activity Restrictions/Additional Instructions: Home and rest. Activity as tolerated. Take antibiotic Bactrim 1 tablet twice a day for 7 days. Use naproxen twice daily for pain and inflammation. Take the naproxen routinely until complete. Use hydrocodone for breakthrough pain 1 tablet every 6 hours as needed for severe pain. Use ice or heat for further pain relief. Drink plenty of water with medications. Follow-up with primary care for further instruction. Sign Out Sign Out Data: Patient Sign Out occurred on 09/09/21 at 17:07. Patient's care was discussed, and care was transferred from to Esteban Colon. Coding Level of Care Code ED Spa Attendant for [place] Fwd Exam Comprehensive
--- NOTE | 2021-09-09 16:46 | PC.NURSE ---
pt to xray
--- NOTE | 2021-09-09 17:15 | PC.NURSE ---
pt returns from xay and ultrasound
[2021-09-09] MEDS: HYDROcodone-acetaminophen 5-325 mg Tablet 1 TAB PO (17:52)
[2021-09-09] MEDS: sulfamethoxazole-trimeth DS 160-800 mg Tablet 1 TAB PO (17:53)
[2021-09-09] MEDS: dexamethasone 10 mg/mL INJ IM (17:54)
[2021-09-09 18:05] VITALS: BP 150/86; PULSE 72; RESP 16; TEMP 36.9; O2SAT 95
== END 2021-09-09 18:08 | disposition home or self-care (01) ==
PROVIDERS: Emergency Provider Nurse Practitioner Family; PCP Family Medicine
DX: M70.51 Other bursitis of knee, right knee (principal)
CPT/HCPCS: 73562; 93971; 96372; 99283; J1100

== ENCOUNTER → 2022-02-09 13:37 | Outpatient (BNVA) | payer OTHER, SELFPAY | PROVIDERS: PCP Family Medicine; Visit Provider Internal Medicine Cardiovascular Disease | DX: I10 Essential (primary) hypertension (principal); E78.2 Mixed hyperlipidemia | CPT/HCPCS: 99214 ==

== ENCOUNTER 2022-07-01 17:29 | Emergency (ER) | payer OTHER, SELFPAY ==
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
== END 2022-07-01 19:23 | disposition home or self-care (01) ==
PROVIDERS: Emergency Provider Nurse Practitioner Family; PCP Family Medicine
DX: Z04.1 Encounter for examination and observation following transport accident (principal); Z79.82 Long term (current) use of aspirin; Z79.84 Long term (current) use of oral hypoglycemic drugs; E11.9 Type 2 diabetes mellitus without complications; E78.5 Hyperlipidemia, unspecified; I10 Essential (primary) hypertension; V89.2XXA Person injured in unspecified motor-vehicle accident, traffic, initial encounter; Y99.0 Civilian activity done for income or pay
CPT/HCPCS: 99282

== ENCOUNTER 2022-07-21 22:42 | Inpatient (IN) | payer OTHER, SELFPAY ==
--- NOTE | 2022-07-21 22:42 | XRR_ITS ---
PROCEDURE INFORMATION: Exam: XR Chest Exam date and time: 07/21/2022 10:50 PM Age: 76 years old Clinical indication: Other: Tachycardia; Additional info: Cp TECHNIQUE: Imaging protocol: Radiologic exam of the chest. Views: 1 view. COMPARISON: CR XR chest 1V portable [id number] 01/23/2021 11:37 AM FINDINGS: Lungs: Unremarkable. No consolidation. Pleural spaces: Unremarkable. No pleural effusion. No pneumothorax. Heart/Mediastinum: Unremarkable. No cardiomegaly. Bones/joints: Subchondral cyst in the left humeral head. No fracture. XR/XR chest 1V portable [id number] IMPRESSION: No acute findings.
[2022-07-21 22:46] VITALS: BP 158/100; PULSE 110; RESP 18; TEMP 36.4; O2SAT 95
--- NOTE | 2022-07-21 22:49 | ECG_ITS ---
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 Measurements Intervals [place] Rate: 105 P: 46 CT: 144 QRS: -41 QRSD: 99 T: 86 QT: 327 QTc: 433 Interpretive Statements SINUS TACHYCARDIA LOW QRS VOLTAGE IN PRECORDIAL LEADS [QRS DEFLECTION < 1.0 mV IN CHEST LEADS] PROBABLE ANTEROLATERAL MYOCARDIAL INFARCTION , OF INDETERMINATE AGE [35 ms Q WAVE IN I/aVL/V3-V6] Compared to ECG 01/23/2021 17:10:25 Low QRS voltage now present Myocardial infarct finding now present Sinus rhythm no longer present First degree AV block no longer present Left-axis deviation no longer present Electronically Signed On 07-21-2022 23:38:19 CDT by Thom Matta M.D. [id number]
--- NOTE | 2022-07-21 23:07 | W.ED.ARRPALP ---
HPI - Arrhythmia/Palpitations General: Chief Complaint: Arrhythmia/Palpitations Stated Complaint: High Heart Rate Time Seen by Provider: 07/21/22 22:45 Source: patient Mode of arrival: ambulatory Limitations: no limitations History of Present Illness: 76-year-old male states that he was sitting watching TV this evening states he started having his heart racing he is having some chest discomfort as well he denies any pain but states he had a discomfort along with some dyspnea he is tachycardic here he denies any worsening improving factors he denies any vomiting or diarrhea denies any recent cough or fever. Associated symptoms: Deny nausea or vomiting Review of Systems Const: Denies: fever(s), chills, body aches or change in appetite Eyes: Denies: blurry vision or eye discomfort ENMT: Denies: throat pain or dental pain Card: Reports: chest pain and palpitations Resp: Reports: dyspnea GI: Denies: abdominal pain, nausea, vomiting or diarrhea : Denies: dysuria Musc: Denies: neck pain or back pain Skin/Breast: Denies: rash Neuro: Denies: headache(s) Psych: Denies: depression Ben/Lymph: Denies: easy bruising All/Imm: Denies: urticaria PFSH ED PFSH: Medical History Aortic root dilatation Diabetes GERD (gastroesophageal reflux disease) Hyperlipidemia Hypertension Obstruction of cystic duct Thoracic ascending aortic aneurysm Surgical History Hx of appendectomy S/P tonsillectomy and adenoidectomy Status post colonoscopy Status post laparoscopic cholecystectomy (01/25/21) Family History Other CAD (coronary artery disease) Social History Smoking and tobacco status: never smoked Alcohol intake: current Alcohol intake frequency: holidays/special occasions only Physical Exam Const: COMMON NORMALS: no acute distress, patient oriented x3 and healthy appearing HENMT: COMMON NORMALS: normocephalic and atraumatic HEAD & SCALP: normocephalic and atraumatic Eye: COMMON NORMALS: Equal, round and reactive pupils present and EOMs intact bilaterally PUPIL: Yes Equal, round and reactive pupils present Neck/C-Spine: COMMON NORMALS: full ROM and supple Chest: COMMONS NORMALS: normal inspection of the chest and normal palpation of entire chest wall Resp: COMMON NORMALS: normal respiratory effort, No retractions, No use of accessory muscles and clear to auscultation bilaterally AUSCULTATION: clear to auscultation bilaterally Cardio: COMMON NORMALS: regular rhythm and No murmurs present (Cardio) RATE: tachycardic RHYTHM: regular rhythm GI: COMMON NORMALS: Normal to inspection, nondistended, normoactive bowel sounds present, Soft to palpation, non-tender and no masses PALPATION: Yes Soft to palpation Extremity: COMMON NORMALS: normal to inspection and full ROM Neuro: COMMON NORMALS: patient oriented x3, moves all extremities and no focal motor deficits Psych: COMMON NORMALS: mental status grossly normal, Normal thought process present and cooperative THOUGHT PROCESS: Normal thought process present Skin: COMMON NORMALS: no rashes or lesions noted and no wounds GENERAL SKIN EXAM: no rashes or lesions noted Course Vital Signs: Vital signs: Vital Signs Temperature 97.5 F L 07/21/22 22:46 Pulse Rate 95 07/21/22 23:20 Respiratory Rate 26 H 07/21/22 23:20 Blood Pressure 169/109 07/21/22 23:20 Pulse Oximetry 92 07/21/22 23:20 Oxygen Delivery Me thod 07/21/22 22:46 MDM - Arrhythmia/Palpitations Medical Decision Making Patient presents here with present palpitations he also had some abdominal and chest burning with some dyspnea his symptoms here resolved he has no pain at this time he does have EKG changes from previous EKG in with some ST depression and flipped T waves no ST elevation or STEMI. His first troponin came back elevated concerning for an NSTEMI of spoke to cardiology along with the hospitalist will admit at this time. Lab Data 07/21/22 22:58 07/21/22 22:58 Radiology Impressions Chest X-Ray 07/21/22 22:42 IMPRESSION: No acute findings. Laboratory Results WBC 7.7 10^3/uL (4.0-10.0) 07/21/22 22:58 RBC 5.12 10^6/uL (4.1-5.3) 07/21/22 22:58 Hgb 14.9 g/dL (11.7-16.6) 07/21/22 22:58 Hct 44.1 % (42.0-52.0) 07/21/22 22:58 MCV 86.1 fl (80-94) 07/21/22 22:58 MCH 29.1 pg (28.0-34.0) 07/21/22 22:58 MCHC 33.8 g/dL (30.0-36.0) 07/21/22 22:58 RDW 14.5 % (12.1-15.1) 07/21/22 22:58 Plt Count 287 10^3/cmm (130-400) 07/21/22 22:58 MPV 11.0 fL (7.4-10.4) H 07/21/22 22:58 Neut % (Auto) 48.3 % 07/21/22 22:58 Lymph % (Auto) 32.9 % 07/21/22 22:58 [place] % (Auto) 15.4 % 07/21/22 22:58 Eos % (Auto) 2.6 % 07/21/22 22:58 Baso % (Auto) 0.5 % 07/21/22 22:58 Neut # (Auto) 3.71 10^3/uL (1.8-7.7) 07/21/22 22:58 Lymph # (Auto) 2.5 10^3/uL (0.8-4.8) 07/21/22 22:58 [place] # (Auto) 1.2 10^3/uL (0.2-0.9) H 07/21/22 22:58 Eos # (Auto) 0.2 10^3/uL (0.0-0.8) 07/21/22 22:58 Baso # (Auto) 0.0 10^3/uL (0.0-0.1) 07/21/22 22:58 Nucleated RBC % (auto) 0 % 07/21/22 22:58 Nucleated RBCs # 0.0 /100WBC 07/21/22 22:58 PT 13.00 SECONDS (12.1-14.9) 07/21/22 22:58 INR 0.95 (0.8-1.2) 07/21/22 22:58 D-Dimer 0.51 ug/mIFEU (0-0.59) 07/21/22 22:58 Sodium 138 mmol/L (136-145) 07/21/22 22:58 Potassium 3.4 mmol/L (3.5-5.1) L 07/21/22 22:58 Chloride 96 mmol/L (98-107) L 07/21/22 22:58 Carbon Dioxide 26 mmol/L (22-29) 07/21/22 22:58 Anion Gap 19.4 (5-19) H 07/21/22 22:58 BUN 17 mg/dL (8-23) 07/21/22 22:58 Creatinine 1.4 mg/dL (0.7-1.2) H 07/21/22 22:58 GFR Calculation Not Reportable 07/21/22 22:58 Glucose 143 mg/dL (65-115) H 07/21/22 22:58 Calculated Osmolality 290 mOsm/kg (285-295) 07/21/22 22:58 Calcium 9.1 mg/dL (8.5-10.5) 07/21/22 22:58 Total Bilirubin 0.4 mg/dL (0.15-1.2) 07/21/22 22:58 AST 53 U/L (0-40) H 07/21/22 22:58 ALT 42 U/L (0-41) H 07/21/22 22:58 Alkaline Phosphatase 53 U/L (40-130) 07/21/22 22:58 Troponin T Baseline 225 ng/L (0-15) H* 07/21/22 22:58 Total Protein 7.0 g/dL (6.6-8.7) 07/21/22 22:58 Albumin 4.3 g/dL (3.5-5.2) 07/21/22 22:58 Globulin 2.7 g/dL (1.3-4.6) 07/21/22 22:58 Lipase 43 U/L (13-60) 07/21/22 22:58 EKG Data EKG 1: I personally reviewed and interpreted this EKG as follows: EKG interpretation date: 07/21/22 EKG interpretation time: 22:49 Interpretation: sinus tach hr [address] elevation qrs 99 qtc 388 Other EKG comments: Chest X-Ray 07/21/22 22:42 IMPRESSION: No acute findings. Discharge Plan Discharge Patient Disposition: Admitted As Inpatient Clinical Impression: Non-ST elevation ND (NSTEMI) Condition: Stable Coding Level of Care Code ED [employer] for Bautista Mendoza
[2022-07-21 23:12] LABS: Basophils % 0.5 %; Eosinophils # 0.2 10^3/uL (0.0-0.8); Eosinophils % 2.6 %; Hematocrit 44.1 % (42.0-52.0); Hemoglobin 14.9 g/dL (11.7-16.6); Lymphocytes # 2.5 10^3/uL (0.8-4.8); Lymphocytes % 32.9 %; Mean Corpuscular HGB Conc 33.8 g/dL (30.0-36.0); Mean Corpuscular Hemoglobin 29.1 pg (28.0-34.0); Mean Corpuscular Volume 86.1 fl (80-94); Monocytes # 1.2 10^3/uL (0.2-0.9); Monocytes % 15.4 %; Neutrophils # 3.71 10^3/uL (1.8-7.7); Neutrophils % 48.3 %; Nucleated Red Blood Cells % 0 %; Platelet Count 287 10^3/cmm (130-400); Red Blood Count 5.12 10^6/uL (4.1-5.3); Red Cell Distribution Width 14.5 % (12.1-15.1); White Blood Count 7.7 10^3/uL (4.0-10.0)
[2022-07-21] MEDS: labetalol 5 mg/mL SDV 20mL 10 MG IVP (23:18)
[2022-07-21 23:20] VITALS: BP 169/109; PULSE 95; RESP 26; O2SAT 92
[2022-07-21 23:32] LABS: Alanine Aminotransferase 42 U/L (0-41); Albumin Level 4.3 g/dL (3.5-5.2); Alkaline Phosphatase 53 U/L (40-130); Anion Gap 19.4 (5-19); Aspartate Amino Transferase 53 U/L (0-40); Blood Urea Nitrogen 17 mg/dL (8-23); Calcium 9.1 mg/dL (8.5-10.5); Carbon Dioxide 26 mmol/L (22-29); Chloride 96 mmol/L (98-107); Globulin 2.7 g/dL (1.3-4.6); Glucose 143 mg/dL (65-115); INR 0.95 (0.8-1.2); Lipase 43 U/L (13-60); Osmolality Calculated 290 mOsm/kg (285-295); Potassium 3.4 mmol/L (3.5-5.1); Sodium 138 mmol/L (136-145); Total Bilirubin 0.4 mg/dL (0.15-1.2)
[2022-07-21 23:40] LABS: Troponin(5th) Baseline 225 ng/L (0-15)
[2022-07-21 23:51] LABS: D Dimer 0.51 ug/mIFEU (0-0.59)
[2022-07-22] VITALS (13 sets, daily range): BP systolic 97–144; BP diastolic 64–93; PULSE 78–100; RESP 16–24; TEMP 36.6–36.9; O2SAT 92–96
[2022-07-22] MEDS: LORazepam 2 mg/mL INJ 1 mL 0.5 MG IVP (00:03)
[2022-07-22] MEDS: enoxaparin 100 mg/mL Syringe 90 MG SUBCUT ×3 (00:04→22:42)
[2022-07-22] MEDS: aspirin 81 mg Chew Tablet 324 MG PO (00:04)
--- NOTE | 2022-07-22 00:20 | PM.HP ---
Providers/Chief Complaint Primary Care Provider: Brissa Garland MD Chief Complaint: High Heart Rate History of Present Illness Heriberto Lyon is a 76 year old male who has morbid obesity, hypertension, ascending thoracic aneurysm, presenting today with chief complaint of palpitations and epigastric discomfort. Patient is stating that around 7 AM he started experiencing palpitations which stayed all day long. He drinks 10 cups of coffee when he is at home from his coffee pot, he has not drunk this much coffee in last 48 hours because he was traveling, he would not cause his discomfort chest pain, he describes his discomfort as palpitation and epigastric bloating. He has not experienced any shortness of breath, nausea, vomiting but endorsing diaphoresis around 7 PM. Does not drink alcohol does not smoke. Diagnostic work-up in the ER revealed unremarkable D-dimer normal CBC, BMP showed hypokalemia and significant baseline troponin with T wave inversions on EKG Patient is chest pain-free no active palpitations Hemodynamically stable at this point TONNY evident on BMP as well Review of Systems Eyes: Denies: change in vision ENMT: Denies: throat pain Card: Reports: palpitations Resp: Denies: dyspnea GI: Reports: nausea, heartburn and early satiety; Denies: abdominal pain : Denies: flank pain Musc: Denies: neck pain Skin/Breast: Denies: rash Neuro: Denies: headache(s) Psych: Denies: anxiety Endo: Denies: polyuria Ben/Lymph: Denies: easy bruising All/Imm: Denies: urticaria Medications/Allergies Home Medications Medication Instructions Recorded Confirmed Last Taken Type aspirin 81 mg tablet,delayed 81 mg PO DAILY 10/02/19 08/13/21 07/01/22 History release (Aspir-) metformin 1,000 mg tablet 500 mg PO BID 10/02/19 08/13/21 07/01/22 History nitroglycerin 0.4 mg sublingual 0.4 mg sublingual Q5M PRN Chest 10/02/19 08/13/21 Unknown History tablet Pain omeprazole 20 mg capsule,delayed 20 mg PO DAILY 10/02/19 08/13/21 07/01/22 History release metoprolol tartrate 100 mg tablet 100 mg PO BID 09/28/20 08/13/21 07/01/22 History telmisartan 80 mg tablet 80 mg PO DAILY 10/12/20 08/13/21 07/01/22 History naproxen 500 mg tablet 500 mg PO BID PRN pain #20 tabs 09/09/21 Unknown Rx allopurinol 100 mg tablet 100 mg PO DAILY 02/09/22 07/01/22 History donepezil 10 mg tablet 5 mg PO DAILY 02/09/22 07/01/22 History potassium chloride 10 mEq 10 meq PO DAILY #90 caps 02/24/22 07/01/22 07/01/22 09:00 Rx capsule,extended release hydrochlorothiazide 50 mg tablet 50 mg PO DAILY #90 tabs 03/17/22 07/01/22 Rx Allergies Allergy/AdvReac Type Severity Reaction Status Date / Time gabapentin Allergy Unknown Verified 07/21/22 22:52 lisinopril Allergy Unknown Verified 07/21/22 22:52 PFSH Acute PFSH: Medical History Aortic root dilatation Diabetes GERD (gastroesophageal reflux disease) Hyperlipidemia Hypertension Obstruction of cystic duct Thoracic ascending aortic aneurysm Surgical History Hx of appendectomy S/P tonsillectomy and adenoidectomy Status post colonoscopy Status post laparoscopic cholecystectomy (01/25/21) Family History Other CAD (coronary artery disease) Social History Smoking and tobacco status: never smoked Alcohol intake: current Alcohol intake frequency: holidays/special occasions only Vitals/I&O/Wt Last Vital Signs Temp 97.5 F L 07/21/22 22:46 Pulse 85 07/22/22 00:00 Resp 24 H 07/22/22 00:00 BP 136/93 07/22/22 00:00 Pulse Ox 94 07/22/22 00:00 O2 Del Method 07/21/22 22:46 Weight last 48 hrs Weight 91.626 kg Physical Exam Narrative: Patient is chest pain-free Hemodynamically stable Awake alert Morbidly obese Euvolemic S1, S2 Doing well on room air Pleasant and cooperative at the bedside GCS 15 EOMI, PERRLA Data 07/21/22 22:58 07/21/22 22:58 A&P Assessment and plan (1) Non-ST elevation RI (NSTEMI): (2) Hypertension: (3) Aortic root dilatation: Plan NSTEMI Started ACS protocol Currently asymptomatic Aspirin Plavix High-dose statin Add Toprol Echo requested Patient will need angiogram Please consult cardiology in the morning Dr. Crawford on-call Recent traveling, D-dimer unremarkable Suspicion of PE is low Ascending aortic aneurysm 4.5 cm Target blood pressure systolic below 130 mmHg and heart rate below 80 Optimize antihypertensive regimen Patient is following up with Dr. Kasper outpatient GERD, continue PPI Diastolic CHF without acute exacerbation hold Lasix Hypokalemia: Repleted check mag level Full code Cardiac diet Counseled to cut back on coffee intake he drinks 10 cups of coffee a day when he is at home from his coffee pot Attestations Medical Necessity Statement*: More than 2 midnights anticipated Diagnoses Non-ST elevation RI (NSTEMI) I21.4 Hypertension I10 Aortic root dilatation I77.810
--- NOTE | 2022-07-22 00:35 | USCV_ITS ---
Heriberto Lyon Age: 76 Gender: M : 1945 Exam Date: 07/22/2022 03:15 Ordering Phys: Eloisa Ayala MD Technologist: BECKY Exam Location: [facility] [place] Indication: nstemi, dyspnes, racing heart rhythm, chest discomfort. No history of cardiac intervention per patient BP: 117 / 91 HR: 77 Rhythm: mostly atrial fibrillation, some strings of sinus rhythm Technical Quality: Adequate MEASUREMENTS (Male / Female) Normal Values 2D ECHO LV Diastolic Diameter PLAX 3.1 cm 4.2 - 5.9 / 3.9 - 5.3 cm LV Systolic Diameter PLAX 1.8 cm IVS Diastolic Thickness 1.7 cm 0.6 - 1.0 / 0.6 - 0.9 cm IVS Systolic Thickness 2.4 cm LVPW Diastolic Thickness 1.6 cm 0.6 - 1.0 / 0.6 - 0.9 cm LVPW Systolic Thickness 1.7 cm LVOT Diameter 2.1 cm LV Ejection Fraction 2D Teich 73.6 % LV Ejection Fraction MOD 2C 54.1 % LV Ejection Fraction 2C AL 54.1 % LA Diameter 4.6 cm LA Width 2.8 cm LA Height 4.8 cm RA Width 4.3 cm RA Height 4.8 cm Aorta at Sinotubular Diameter 3.6 cm IVC Diameter 2.9 cm M-MODE Aortic Annulus Diameter 3.2 cm LA Ao Ratio MM 1.4 MV E Point Septal Separation 0.5 cm DOPPLER AV Peak Velocity 71.0 cm/s LVOT Peak Velocity 58.0 cm/s AV Area Cont Eq vti 2.7 cm squared AV Area Cont Eq pk 2.8 cm squared MV Area PHT 7.6 cm squared MV E' Velocity 63.5 cm/s Mitral E to MV E' Ratio 11.9 Mitral E to LV E' Lateral Ratio 10.5 Mitral E to LV E' Septal Ratio 13.9 TR Peak Velocity 208.0 cm/s TR Peak Gradient 17.3 mmHg TV Peak E Velocity 40.0 cm/s Right Atrial Pressure 5.0 mmHg Pulmonary Artery Systolic Pressu 22.3 mmHg PV Peak Velocity 83.0 cm/s RV Acceleration Time 0.1 s RV Ejection Time 0.3 s RV AcT/ET 0.2 FINDINGS Left Ventricle Normal left ventricular size and ejection fraction, EF 56 %. The basal inferior wall segment was found to be somewhat dyskinetic.Grade I/IV diastolic dysfunction (abnormal relaxation filling pattern), normal to mildly elevated filling pressures. Right Ventricle Appears to be of normal size and ejection fraction. Echodensities to his the RV apex, possible moderator band Right Atrium Normal size Left Atrium Mildly increased left atrial size. Mitral Valve Thickened mitral valve. Aortic Valve The aortic valve is minimally thickened.mild aortic valve calcification. Tricuspid Valve Trace tricuspid valve regurgitation. Pulmonic Valve No gross abnormalities noted Pericardium No pericardial effusion. Aorta The ascending aorta measured 4.3 cm in diameter IVC Dilated IVC with decreased respiratory variation. CONCLUSIONS Normal left ventricular size and ejection fraction, EF 56 %. The basal inferior wall segment was found to be somewhat dyskinetic.Grade I/IV diastolic dysfunction (abnormal relaxation filling pattern), normal to mildly elevated filling pressures. Mildly increased left atrial size. Right ventricle appears to be normal size and ejection fraction. Echodensities in the right ventricle suggesting possible moderator band . Trace tricuspid valve regurgitation. Thickened aortic and mitral valves Estimated pulmonary artery peak systolic pressure of 22 mmHg. This could be an underestimation because of poor Doppler signals. There is no pericardial effusion. Dr Johnny Ayala MD [facility] (Electronically Signed) Final Date: 22 July 2022 09:35 S
[2022-07-22] MEDS: potassium chloride ER 20 mEq Tablet 40 MEQ PO (01:34)
[2022-07-22] MEDS: clopidogrel 300 mg Tablet PO (01:34)
[2022-07-22] MEDS: pneumococcal (23 valent) SDV 0.5 mL IM (01:35)
[2022-07-22] MEDS: lidocaine 2% viscous 15 ML, aluminum-mag hydrox-simethicon 30 ML, sucralfate oral liq 1 GM PO (01:39)
--- NOTE | 2022-07-22 02:14 | ECG_ITS ---
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 Measurements Intervals [place] Rate: 76 P: 0 NV: 0 QRS: -46 QRSD: 93 T: 82 QT: 394 QTc: 444 Interpretive Statements Sinus rhythm with a first-degree AV block LOW QRS VOLTAGE IN PRECORDIAL LEADS [QRS DEFLECTION < 1.0 mV IN CHEST LEADS] MINIMAL VOLTAGE CRITERIA FOR LVH, CONSIDER NORMAL VARIANT [MEETS CRITERIA IN ONE OF: R(aVL), S(V1), R(V5), R(V5/V6)+S(V1)] Possible old inferior wall [place] Compared to ECG 07/21/2022 22:49:15 Sinus tachycardia no longer present Myocardial infarct finding no longer present Electronically Signed On 07-22-2022 21:37:49 CDT by Johnny Ayala M.D. [id number]
[2022-07-22 02:21] LABS: Anion Gap 20.4 (5-19); Blood Urea Nitrogen 17 mg/dL (8-23); Carbon Dioxide 23 mmol/L (22-29); Chloride 97 mmol/L (98-107); Glucose 160 mg/dL (65-115); Magnesium 1.8 mg/dL (1.7-2.3); Osmolality Calculated 289 mOsm/kg (285-295); Potassium 3.4 mmol/L (3.5-5.1); Sodium 137 mmol/L (136-145)
[2022-07-22 02:33] LABS: Troponin 5 2HR 240.9 ng/L (0-15)
[2022-07-22 02:34] LABS: Troponin 5 2HR Delta 15.9 ABS# (0-10)
[2022-07-22 02:40] LABS: Thyroid Stimulating Hormone 5.33 uIU/mL (0.27-4.20)
[2022-07-22 02:49] LABS: Vitamin B12 > 2000 pg/mL (232-1245)
--- NOTE | 2022-07-22 04:42 | ECG_ITS ---
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 Measurements Intervals [place] Rate: 80 P: 56 [place]: 235 QRS: -46 QRSD: 98 T: 88 QT: 371 QTc: 429 Interpretive Statements SINUS RHYTHM WITH FIRST DEGREE AV BLOCK LOW QRS VOLTAGE IN PRECORDIAL LEADS [QRS DEFLECTION < 1.0 mV IN CHEST LEADS] Nonspecific ST-T changes Possible old inferior wall [place] Compared to ECG 07/22/2022 02:14:50 First degree AV block now present Atrial fibrillation no longer present Electronically Signed On 07-22-2022 21:38:49 CDT by Johnny Ayala M.D. [id number]
[2022-07-22 05:51] LABS: Troponin 5 6HR 272.5 ng/L (0-15); Troponin 5 6HR Delta 47.5 ng/L (0-12)
--- NOTE | 2022-07-22 08:09 | P.CONIM_ITS ---
Providers/Reason For Consult Consulting Physician/Specialty*: GEORGETTE Ayala MD/cardiology Reason for Consult*: Patient with chest pain and elevated troponin T Requesting Physician: Dr. Ayala/Dr. Diallo Attending Physician: Evette Diallo MD Primary Care Provider: Brissa Garladn MD History of Present Illness History of Present Illness Heriberto Lyon is a 76 year old male is admitted to the hospital through the emergency room where he presented with complaints of palpitation/epigastric discomfort and feeling of uneasiness. He was found to have elevated troponin T. Cardiology consult is requested for further cardiac evaluation recommendations. This patient has a history of hypertension, type 2 diabetes and dyslipidemia. Weston williamson also has a history of TIA. 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 Apparently he was not [place] yesterday. In the morning as he woke up, he felt very nervous with the heart beating fast and an overall feeling of uneasiness. He felt like he is high on amphetamine. He was having soreness in the umbilical and epigastric region. No chest pain as such. He also may have some shortness of breath. He had the feeling of vibration in both of his legs-the symptoms persisted throughout the day. He drove back to [place] from [place] yesterday. Because of the persistence of the symptoms, he decided to come to the hospital. He had no orthopnea PND. No fever, chills or cough. No other specific complaints. He has a history of aortic root enlargement. No history for any coronary artery disease, myocardial infarction or congestive heart failure. No history for smoking abuse, alcohol abuse or substance abuse. Review of Systems Narrative: CONSTITUTIONAL: No fever or chills. EYES: No blurring of vision or other visual disturbances lately. ENT: No hoarseness of voice, auditory disturbances or sore throat. CARDIOVASCULAR: As mentioned above. RESPIRATORY: No significant cough. GASTROINTESTINAL: No hematemesis or melena. GENITOURINARY: No dysuria or hematuria. INTEGUMENTARY: No skin rashes or history of skin cancer. NEURO: No transient ischemic attacks or amaurosis. PSYCHIATRIC: No history of psychosis or major depression. HEMATOLOGIC: No bleeding disorders or significant anemia. ENDOCRINE: No history of polyuria or polydipsia. MUSCULOSKELETAL: As mentioned above ALLERGY/IMMUNOLOGY: As mentioned above. Medications/Allergies Home Medications Medication Instructions Recorded Confirmed Last Taken Type aspirin 81 mg tablet,delayed 81 mg PO DAILY 10/02/19 07/22/22 07/21/22 History release (Aspir-) metformin 1,000 mg tablet 500 mg PO BID 10/02/19 07/22/22 07/01/22 History nitroglycerin 0.4 mg sublingual 0.4 mg sublingual Q5M PRN Chest 10/02/19 07/22/22 Unknown History tablet Pain omeprazole 20 mg capsule,delayed 20 mg PO DAILY 10/02/19 07/22/22 07/01/22 History release metoprolol tartrate 100 mg tablet 100 mg PO BID 09/28/20 07/22/22 07/21/22 21:00 History telmisartan 80 mg tablet 80 mg PO DAILY 10/12/20 07/22/22 07/01/22 History naproxen 500 mg tablet 500 mg PO BID PRN pain #20 tabs 09/09/21 07/22/22 Unknown Rx allopurinol 100 mg tablet 100 mg PO DAILY 02/09/22 07/22/22 07/21/22 History donepezil 10 mg tablet 5 mg PO DAILY 02/09/22 07/22/22 07/01/22 History potassium chloride 10 mEq 10 meq PO DAILY #90 caps 02/24/22 07/22/22 07/01/22 09:00 Rx capsule,extended release hydrochlorothiazide 50 mg tablet 50 mg PO DAILY #90 tabs 03/17/22 07/22/22 07/21/22 Rx Allergies Allergy/AdvReac Type Severity Reaction Status Date / Time gabapentin Allergy Unknown Verified 07/21/22 22:52 lisinopril Allergy Unknown Verified 07/21/22 22:52 PFSH Acute PFSH: Medical History (Updated 07/22/22 @ 09:02 by Johnny Ayala MD) Aortic root dilatation Diabetes GERD (gastroesophageal reflux disease) Hyperlipidemia Hypertension Obstruction of cystic duct Thoracic ascending aortic aneurysm Surgical History Hx of appendectomy S/P tonsillectomy and adenoidectomy Status post colonoscopy Status post laparoscopic cholecystectomy (01/25/21) Family History Other CAD (coronary artery disease) Social History Smoking and tobacco status: never smoked Alcohol intake: current Alcohol intake frequency: holidays/special occasions only Vitals/I&O/Wt Last Vital Signs Temp 98.0 F 07/22/22 07:42 Pulse 78 07/22/22 07:42 Resp 21 H 07/22/22 07:42 BP 113/86 07/22/22 07:42 Pulse Ox 95 07/22/22 07:42 O2 Del Method 07/22/22 07:42 07/21/22 07/22/22 07/22/22 22:59 06:59 14:59 Intake Total 120 / 120 Balance 120 / 120 Weight last 48 hrs Weight 211 lb 4.8 oz Weight 202 lb Physical Exam Narrative: GENERAL: The patient is alert and oriented times three. Not in any acute distress. HEENT: No significant pallor, icterus or lymphadenopathy.Oral cavity: There are no mucous membrane lesions. NECK: Trachea appears to be central. No masses noted. No JVD or thyromegaly rafiq reciated. RESPIRATORY: Chest is symmetrical. No intercostals muscle retraction or any accessory muscle activation. There is no chest wall tenderness. Breath sounds are heard bilaterally. No rales or rhonchi heard. No evidence of any consolidation. BREASTS: Deferred. HEART: The heart sounds are normal. No S3 or S4. No significant murmurs. No pericardial rub ABDOMEN: No vessel pulsations or distention. No tenderness. No organomegaly appreciated. Bowel sounds are normally heard. : Deferred. RECTAL: Deferred. LYMPHATIC: No lymphadenopathy noted in the neck. EXTREMITIES: No edema or cyanosis. No clubbing. MUSCULOSKELETAL: No acute joint deformities or swelling SKIN: There are no significant rashes or ecchymosis NEUROPSYCHIATRIC: The patient is alert and oriented x3. Appears to be in a good mood. No tremors or rigidity noted. Data 07/21/22 22:58 07/22/22 01:46 Other Labs: Laboratory Last Values WBC 7.7 10^3/uL (4.0-10.0) 07/21/22 22:58 RBC 5.12 10^6/uL (4.1-5.3) 07/21/22 22:58 Hgb 14.9 g/dL (11.7-16.6) 07/21/22 22:58 Hct 44.1 % (42.0-52.0) 07/21/22 22:58 MCV 86.1 fl (80-94) 07/21/22 22:58 MCH 29.1 pg (28.0-34.0) 07/21/22 22:58 MCHC 33.8 g/dL (30.0-36.0) 07/21/22 22:58 RDW 14.5 % (12.1-15.1) 07/21/22 22:58 Plt Count 287 10^3/cmm (130-400) 07/21/22 22:58 MPV 11.0 fL (7.4-10.4) H 07/21/22 22:58 Neut % (Auto) 48.3 % 07/21/22 22:58 Lymph % (Auto) 32.9 % 07/21/22 22:58 [place] % (Auto) 15.4 % 07/21/22 22:58 Eos % (Auto) 2.6 % 07/21/22 22:58 Baso % (Auto) 0.5 % 07/21/22 22:58 Neut # (Auto) 3.71 10^3/uL (1.8-7.7) 07/21/22 22:58 Lymph # (Auto) 2.5 10^3/uL (0.8-4.8) 07/21/22 22:58 [place] # (Auto) 1.2 10^3/uL (0.2-0.9) H 07/21/22 22:58 Eos # (Auto) 0.2 10^3/uL (0.0-0.8) 07/21/22 22:58 Baso # (Auto) 0.0 10^3/uL (0.0-0.1) 07/21/22 22:58 Nucleated RBC % (auto) 0 % 07/21/22 22:58 Nucleated RBCs # 0.0 /100WBC 07/21/22 22:58 PT 13.00 SECONDS (12.1-14.9) 07/21/22 22:58 INR 0.95 (0.8-1.2) 07/21/22 22:58 D-Dimer 0.51 ug/mIFEU (0-0.59) 07/21/22 22:58 Sodium 137 mmol/L (136-145) 07/22/22 01:46 Potassium 3.4 mmol/L (3.5-5.1) L 07/22/22 01:46 Chloride 97 mmol/L (98-107) L 07/22/22 01:46 Carbon Dioxide 23 mmol/L (22-29) 07/22/22 01:46 Anion Gap 20.4 (5-19) H 07/22/22 01:46 BUN 17 mg/dL (8-23) 07/22/22 01:46 Creatinine 1.3 mg/dL (0.7-1.2) H 07/22/22 01:46 GFR Calculation Not Reportable 07/22/22 01:46 Glucose 160 mg/dL (65-115) H 07/22/22 01:46 Calculated Osmolality 289 mOsm/kg (285-295) 07/22/22 01:46 Calcium 9.0 mg/dL (8.5-10.5) 07/22/22 01:46 Magnesium 1.8 mg/dL (1.7-2.3) 07/22/22 01:46 Total Bilirubin 0.4 mg/dL (0.15-1.2) 07/21/22 22:58 AST 53 U/L (0-40) H 07/21/22 22:58 ALT 42 U/L (0-41) H 07/21/22 22:58 Alkaline Phosphatase 53 U/L (40-130) 07/21/22 22:58 Troponin T Baseline 225 ng/L (0-15) H* 07/21/22 22:58 Troponin T 120 Minute 240.9 ng/L (0-15) H 07/22/22 01:46 Delta Troponin T 15.9 ABS# (0-10) H* 07/22/22 01:46 Troponin T Hi Sens 6Hr 272.5 ng/L (0-15) H 07/22/22 05:10 Troponin T Hi Sens 6Hr Delta 47.5 ng/L (0-12) H* 07/22/22 05:10 Total Protein 7.0 g/dL (6.6-8.7) 07/21/22 22:58 Albumin 4.3 g/dL (3.5-5.2) 07/21/22 22:58 Globulin 2.7 g/dL (1.3-4.6) 07/21/22 22:58 Lipase 43 U/L (13-60) 07/21/22 22:58 Vitamin B12 > 2000 pg/mL (232-1245) H 07/22/22 01:46 TSH 5.33 uIU/mL (0.27-4.20) H 07/22/22 01:46 Echo: My impression: Echocardiogram on 01/24/2021 LV systolic function is normal with EF of 60-65% ?Grade 1 diastolic dysfunction ?Trace mitral regurgitation ?Dilated ascending aorta measuring 4.5 cm unchanged from prior ?echocardiogram from 10/2020 ?Compared to prior echocardiogram from 10/2020, no significant ?changes are noted EKG 1: My Interpretation: No more sinus rhythm with a first-degree AV block. Possible old inferior wall [place]. Nonspecific ST-T changes in the high lateral leads. Normal QRS duration. A&P Assessment and plan (1) Elevated troponin: The elevated troponin T, could be related to a non-ST elevation myocardial infarction. The EKG changes are nonspecific. Pulmonary embolism is a consideration. However in view of the normal D-dimer, the chances of having pulmonary embolism may be very low. His oxygen saturation 96% room air. (2) Hypertension: (3) Aortic root dilatation: This may need to be reevaluated. Patient had an echocardiogram done this morning. I will be reviewing the echocardiogram. (4) History of TIA (transient ischemic attack): Patient has not had a recurrence of TIA. Currently has no focal neurological deficit. (5) History of diabetes mellitus: I may check on his Hemoglobin A1c. The blood glucose level is 160. This needs to be closely monitored. (6) Hyperlipidemia: Agree with the statin. Qualifiers: Hyperlipidemia type: mixed hyperlipidemia Qualified Code(s): E78.2 - Mixed hyperlipidemia (7) Chronic kidney disease (CKD): This seems to be new finding. Need to carefully hydrate with IV fluid. Plan I will be reviewing the echocardiogram. Patient may be treated with IV heparin, beta-hernan, aspirin, statin and Plavix. Careful IV hydration. He requires a cardiac catheterization to further evaluate his coronary status and decide on further management. After reviewing the above results, further recommendations will be made. Repeat be BMP at noon Consult Attestations Medical Necessity Statement: Patient requires continued hospital stay for close monitoring and further management Coding Level of Care Code 60796 Diagnoses Elevated troponin R77.8 Hypertension I10 Aortic root dilatation I77.810 History of TIA (transient ischemic attack) Z86.73 History of diabetes mellitus Z86.39 Hyperlipidemia E78.2 Hyperlipidemia type: mixed hyperlipidemia Chronic kidney disease (CKD) N18.9
--- NOTE | 2022-07-22 08:45 | USR_ITS ---
PROCEDURE INFORMATION: Exam: US Duplex Lower Extremity Veins, Bilateral Exam date and time: 07/22/2022 5:35 PM Age: 76 years old Clinical indication: Screening exam; R/O dvt, stasis TECHNIQUE: Imaging protocol: Real-time duplex ultrasound of the bilateral extremities with 2-D brown scale, color Doppler flow and spectral waveform analysis including responses to compression and other maneuvers (when performed) with image documentation. Complete exam focused on the lower extremity veins. COMPARISON: [place] [id number] 09/09/2021 4:54 PM FINDINGS: Right deep veins: Unremarkable. The common femoral, femoral, proximal profunda femoral and popliteal veins are patent without thrombus. Normal Doppler waveforms. Normal compressibility and/or augmentation response. Right superficial veins: Saphenofemoral junction is patent without thrombus. Left deep veins: Unremarkable. The common femoral, femoral, proximal profunda femoral and popliteal veins are patent without thrombus. Normal Doppler waveforms. Normal compressibility and/or augmentation response. Left superficial veins: Saphenofemoral junction is patent without thrombus. Soft tissues: Unremarkable. US/[place] [id number] IMPRESSION: No evidence of deep vein thrombosis.
[2022-07-22] MEDS: sodium chloride 0.9% 1,000 ML 100 ML IV ×2 (08:56→19:40)
[2022-07-22] MEDS: clopidogrel 75 mg Tablet PO (08:57)
[2022-07-22] MEDS: atorvastatin 40 mg Tablet 80 MG PO (08:57)
[2022-07-22] MEDS: donepezil 5 MG Tablet PO (08:58)
[2022-07-22] MEDS: losartan 50 mg Tablet 100 MG PO (08:59)
[2022-07-22] MEDS: aspirin 81 mg EC Tablet PO (09:00)
[2022-07-22] MEDS: metoprolol succinate ER (24 HR) 25 mg Tablet PO (09:00)
[2022-07-22 09:41] LABS: Estmated Average Glucose 160; Hemoglobin A1C 7.2 % (4.0-6.0)
--- NOTE | 2022-07-22 10:01 | P.PN_ITS ---
Subjective Subjective: Patient awake and alert. Feeling okay this morning. Actually feels good enough to potentially go home. No chest pain or difficulty breathing. I spoke with him at length about his trip from [place] to [place]. He stopped 5 or 6 times getting up and walking around. The longest distance he went without stopping was from [place] to [place]. He has no calf tenderness. His feet bother him from diabetic neuropathy. The pain in his upper epigastric area he describes as underneath his sternum. In addition to the symptoms he experienced yesterday, he describes intermittent episodes of e xertional discomfort and shortness of breath that improved with rest. These have been happening more frequently in an escalating fashion over the last few months. His also says that he has no energy and begrudgingly he did admit to this. This has been a new problem for him over the last few months that seems to be getting worse. Medications: Reviewed: Yes Vitals/I&O/Wt Last Vital Signs Temp 98.0 F 07/22/22 07:42 Pulse 83 07/22/22 08:39 Resp 18 07/22/22 08:39 BP 130/87 07/22/22 08:59 Pulse Ox 96 07/22/22 08:39 O2 Del Method 07/22/22 08:39 07/21/22 07/22/22 07/22/22 22:59 06:59 14:59 Intake Total 120 / 120 240 / 240 Balance 120 / 120 240 / 240 Weight last 48 hrs Weight 95.844 kg Weight 91.626 kg Physical Exam Narrative: Awake and alert, able to provide history. Lungs are clear to auscultation without any rales rhonchi or wheezes noted. Cardiovascular exam reveals a regular rate and rhythm. No pitting edema. No calf tenderness. Calves are symmetrical. Speech is clear, moves all extremities. Data 07/21/22 22:58 07/22/22 01:46 A&P Assessment and plan (1) Non-ST elevation DC (NSTEMI): Initial elevation in baseline troponin at 225 with 2-hour delta at 15.9 and 6- hour troponin delta at 47.5. He does describe intermittent exertional chest pain that improved with rest lately and progressively worsening level of energy lately. No personal history of known coronary artery disease previously. (2) Hypertension: Chronically on metoprolol, hydrochlorothiazide, telmisartan with currently adequate control (3) Aortic root dilatation: Followed by Dr. Kasper outpatient as well as for ascending thoracic aortic aneurysm (4) Hyperlipidemia: Diagnosis though not on chronic treatment; nonfasting specimen with significant elevation in triglycerides along with elevation and cholesterol and LDL with low HDL and a high cholesterol/HDL ratio (5) Diabetes mellitus, type II: [id number], currently with hyperglycemia, hemoglobin A1c 7.2, on metformin at home (6) GERD (gastroesophageal reflux disease): Chronically on PPI (7) Chronic kidney disease (CKD): Most likely chronic kidney disease stage II at baseline from review of records. May be progressing from previous baseline creatinine around 1. Had diuretic therapy and NSAID therapy at home as potential contributing factors to acute increase in values. (8) Gout: On chronic allopurinol Plan Memory issues, primarily related to not remembering exit and towns along some drives intermittently, for which he has been prescribed Aricept on an outpatient basis After discussing with Dr. Ayala, plan is to continue on some IV fluids today and will schedule for cardiac catheterization tomorrow for further evaluation. Procedure will include aortic root evaluation as well. Resume Lovenox at treatment dose Continue aspirin and Plavix Continue ARB and beta-blockade treatment Continue statin therapy Add sliding scale insulin for diabetes Continue home allopurinol Remains off of home hydrochlorothiazide and potassium due to renal function Off of home naproxen due to renal function Continuing IV fluids We will recheck renal function in the morning Continue home Aricept which patient is on for memory issues though states it made me feel strange On PPI Treatment dose Lovenox provides VTE coverage currently Supportive care otherwise Findings, concerns and plans were discussed with patient and his and both were given an opportunity to ask questions Full code Attestations Medical Necessity Statement*: Requires ongoing inpatient stay for management of non-ST elevation DC, treatment with IV fluids and planned cardiac catheterization tomorrow. Other issues and plans as noted above. and High Time for a total of 50 minutes, includes reviewing past or interval history, examining/interviewing patient, placing orders, discussing plan of care with staff, communicating with other healthcare providers and documenting encounter Diagnoses Non-ST elevation DC (NSTEMI) I21.4 Hypertension I10 Aortic root dilatation I77.810 Hyperlipidemia E78.5 Diabetes mellitus, type II E11.9 GERD (gastroesophageal reflux disease) K21.9 Chronic kidney disease (CKD) N18.9 Gout M10.9
[2022-07-22 12:42] LABS: Anion Gap 17.7 (5-19); Blood Urea Nitrogen 18 mg/dL (8-23); Calcium 8.9 mg/dL (8.5-10.5); Carbon Dioxide 24 mmol/L (22-29); Chloride 99 mmol/L (98-107); Chol HDL Ratio 7.45 mg/dL (1.0-5.00); Cholesterol 246 mg/dL (0-200); Glucose 135 mg/dL (65-115); HDL Cholesterol 33 mg/dL (60-100); Osmolality Calculated 288 mOsm/kg (285-295); Potassium 3.7 mmol/L (3.5-5.1); Sodium 137 mmol/L (136-145); Triglycerides 711 mg/dL (0-150)
[2022-07-22 13:01] LABS: LDL Cholesterol Direct 149 mg/dL (0-100)
[2022-07-22] MEDS: insulin lispro 100 unit/1 mL SUBCUT ×2 (17:49→20:33)
[2022-07-22 18:07] LABS: Glucose Point of Care 163 mg/dL (70-110)
[2022-07-22 20:21] LABS: Glucose Point of Care 143 mg/dL (70-110)
[2022-07-23] VITALS (60 sets, daily range): BP systolic 133–177; BP diastolic 84–117; PULSE 69–97; RESP 13–26; TEMP 36.5–36.7; O2SAT 94–96
[2022-07-23] MEDS: sodium chloride 0.9% 1,000 ML 100 ML IV ×2 (04:43→13:58)
[2022-07-23 06:10] LABS: Glucose Point of Care 128 mg/dL (70-110)
--- NOTE | 2022-07-23 08:14 | PM.PN ---
Subjective Subjective: The patient is feeling okay. No chest pain or chest tightness. No fever or chills. The creatinine is much better. Medications: Medication Review Details: Current Medications Acetaminophen (Acetaminophen 500 Mg Tablet) 500 mg PO Q4H PRN PRN Reason: fever Albuterol/Ipratropium (Ipratropium-Albuterol 3 Ml Neb) 3 ml INHALATION Q6H PRN PRN Reason: SHORTNESS OF BREATH Allopurinol (Allopurinol 100 Mg Tablet) 100 mg PO DAILY [facility] Aspirin (Aspirin 81 Mg Ec Tablet) 81 mg PO DAILY [facility] Last Admin: 07/22/22 09:00 Dose: 81 mg Atorvastatin Calcium (Atorvastatin 40 Mg Tablet) 80 mg PO DAILY [facility] Last Admin: 07/22/22 08:57 Dose: 80 mg Clopidogrel Bisulfate (Clopidogrel 75 Mg Tablet) 75 mg PO DAILY [facility] Last Admin: 07/22/22 08:57 Dose: 75 mg Dextrose (Dextrose 50% Syringe 50 Ml) 25 ml IVP ONCE PRN; Protocol PRN Reason: hypoglycemia protocol Dextrose (Dextrose 50% Syringe 50 Ml) 50 ml IVP PRN PRN; Protocol PRN Reason: hypoglycemia protocol Donepezil HCl (Donepezil 5 Mg Tablet) 5 mg PO DAILY [facility] Last Admin: 07/22/22 08:58 Dose: 5 mg Enoxaparin Sodium (Enoxaparin 100 Mg/Ml Syringe) 90 mg SUBCUT Q12H [facility] Last Admin: 07/22/22 22:42 Dose: 90 mg Glucagon (Glucagon 1 Mg/Ml Inj 1 Ml) 1 mg IM ONCE PRN; Protocol PRN Reason: Adult Acute Hypoglycemia Prot. Sodium Chloride (Sodium Chloride 0.9%) 1,000 mls @ 100 mls/hr IV .Q10H [facility] Last Admin: 07/23/22 04:43 Dose: 100 mls/hr Dextrose (D5w) 500 mls @ 100 mls/hr IV ONCE PRN; Protocol PRN Reason: Adult Acute Hypoglycemia Prot Insulin Human Lispro (Insulin Lispro 100 Unit/1 Ml) 0 unit SUBCUT BEDTIME [facility]; Protocol Last Admin: 07/22/22 20:33 Dose: 1 unit Insulin Human Lispro (Insulin Lispro 100 Unit/1 Ml) 0 unit SUBCUT TIDWM [facility]; Protocol Last Admin: 07/23/22 07:18 Dose: Not Given Losartan Potassium (Losartan 50 Mg Tablet) 100 mg PO DAILY [facility] Metoprolol Succinate (Metoprolol Succinate Er (24 Hr) 25 Mg Tablet) 25 mg PO DAILY [facility] Last Admin: 07/22/22 09:00 Dose: 25 mg Ondansetron HCl (Ondansetron 2 Mg/Ml Sdv 2 Ml) 4 mg IVP Q6H PRN PRN Reason: NAUSEA AND VOMITING Vitals/I&O/Wt Last Vital Signs Temp 98.1 F 07/23/22 07:48 Pulse 85 07/23/22 07:48 Resp 22 H 07/23/22 07:48 BP 145/105 07/23/22 07:48 Pulse Ox 94 07/23/22 07:48 O2 Del Method 07/23/22 07:48 07/22/22 07/23/22 07/23/22 22:59 06:59 14:59 Intake Total 2240 / 2720 380 / 3100 Balance 2240 / 2720 380 / 3100 Weight last 48 hrs Weight 217 lb 12.8 oz Weight 211 lb 4.8 oz Weight 202 lb Physical Exam Narrative: GENERAL: The patient is alert and oriented times three. Not in any acute distress. Normal heart and ongoing limitation HEENT: No significant pallor, icterus or lymphadenopathy.Oral cavity: There are no mucous membrane lesions. NECK: Trachea appears to be central. No masses noted. No JVD or thyromegaly appreciated. RESPIRATORY: Chest is symmetrical. No intercostals muscle retraction or any accessory muscle activation. There is no chest wall tenderness. Breath sounds are heard bilaterally. No rales or rhonchi heard. No evidence of any consolidation. BREASTS: Deferred. HEART: The heart sounds are normal. No S3 or S4. No significant murmurs. No pericardial rub ABDOMEN: No vessel pulsations or distention. No tenderness. No organomegaly appreciated. Bowel sounds are normally heard. : Deferred. RECTAL: Deferred. LYMPHATIC: No lymphadenopathy noted in the neck. EXTREMITIES: No edema or cyanosis. No clubbing. MUSCULOSKELETAL: No acute joint deformities or swelling SKIN: There are no significant rashes or ecchymosis NEUROPSYCHIATRIC: The patient is alert and oriented x3. Appears to be in a good mood. No tremors or rigidity noted. Data 07/21/22 22:58 07/22/22 12:15 Other Labs: Laboratory Last Values WBC 7.7 10^3/uL (4.0-10.0) 07/21/22 22:58 RBC 5.12 10^6/uL (4.1-5.3) 07/21/22 22:58 Hgb 14.9 g/dL (11.7-16.6) 07/21/22 22:58 Hct 44.1 % (42.0-52.0) 07/21/22 22:58 MCV 86.1 fl (80-94) 07/21/22 22:58 MCH 29.1 pg (28.0-34.0) 07/21/22 22:58 MCHC 33.8 g/dL (30.0-36.0) 07/21/22 22:58 RDW 14.5 % (12.1-15.1) 07/21/22 22:58 Plt Count 287 10^3/cmm (130-400) 07/21/22 22:58 MPV 11.0 fL (7.4-10.4) H 07/21/22 22:58 Neut % (Auto) 48.3 % 07/21/22 22:58 Lymph % (Auto) 32.9 % 07/21/22 22:58 Maries % (Auto) 15.4 % 07/21/22 22:58 Eos % (Auto) 2.6 % 07/21/22 22:58 Baso % (Auto) 0.5 % 07/21/22 22:58 Neut # (Auto) 3.71 10^3/uL (1.8-7.7) 07/21/22 22:58 Lymph # (Auto) 2.5 10^3/uL (0.8-4.8) 07/21/22 22:58 Maries # (Auto) 1.2 10^3/uL (0.2-0.9) H 07/21/22 22:58 Eos # (Auto) 0.2 10^3/uL (0.0-0.8) 07/21/22 22:58 Baso # (Auto) 0.0 10^3/uL (0.0-0.1) 07/21/22 22:58 Nucleated RBC % (auto) 0 % 07/21/22 22:58 Nucleated RBCs # 0.0 /100WBC 07/21/22 22:58 PT 13.00 SECONDS (12.1-14.9) 07/21/22 22:58 INR 0.95 (0.8-1.2) 07/21/22 22:58 D-Dimer 0.51 ug/mIFEU (0-0.59) 07/21/22 22:58 Sodium 137 mmol/L (136-145) 07/22/22 12:15 Potassium 3.7 mmol/L (3.5-5.1) 07/22/22 12:15 Chloride 99 mmol/L (98-107) 07/22/22 12:15 Carbon Dioxide 24 mmol/L (22-29) 07/22/22 12:15 Anion Gap 17.7 (5-19) 07/22/22 12:15 BUN 18 mg/dL (8-23) 07/22/22 12:15 Creatinine 1.1 mg/dL (0.7-1.2) 07/22/22 12:15 GFR Calculation Not Reportable 07/22/22 12:15 Glucose 135 mg/dL (65-115) H 07/22/22 12:15 POC Glucose 128 mg/dL (70-110) H 07/23/22 06:03 Estimat Average Glucose 160 07/21/22 22:58 Hemoglobin A1c 7.2 % (4.0-6.0) H 07/21/22 22:58 Calculated Osmolality 288 mOsm/kg (285-295) 07/22/22 12:15 Calcium 8.9 mg/dL (8.5-10.5) 07/22/22 12:15 Magnesium 1.8 mg/dL (1.7-2.3) 07/22/22 01:46 Total Bilirubin 0.4 mg/dL (0.15-1.2) 07/21/22 22:58 AST 53 U/L (0-40) H 07/21/22 22:58 ALT 42 U/L (0-41) H 07/21/22 22:58 Alkaline Phosphatase 53 U/L (40-130) 07/21/22 22:58 Troponin T Baseline 225 ng/L (0-15) H* 07/21/22 22:58 Troponin T 120 Minute 240.9 ng/L (0-15) H 07/22/22 01:46 Delta Troponin T 15.9 ABS# (0-10) H* 07/22/22 01:46 Troponin T Hi Sens 6Hr 272.5 ng/L (0-15) H 07/22/22 05:10 Troponin T Hi Sens 6Hr Delta 47.5 ng/L (0-12) H* 07/22/22 05:10 Total Protein 7.0 g/dL (6.6-8.7) 07/21/22 22:58 Albumin 4.3 g/dL (3.5-5.2) 07/21/22 22:58 Globulin 2.7 g/dL (1.3-4.6) 07/21/22 22:58 Triglycerides 711 mg/dL (0-150) H 07/22/22 12:15 Cholesterol 246 mg/dL (0-200) H 07/22/22 12:15 LDL Cholesterol Direct 149 mg/dL (0-100) H 07/22/22 12:15 LDL Cholesterol, Calc Not Reportable 07/22/22 12:15 HDL Cholesterol 33 mg/dL (60-100) L 07/22/22 12:15 LDL/HDL Ratio Not Reportable 07/22/22 12:15 Cholesterol/HDL Ratio 7.45 mg/dL (1.0-5.00) H 07/22/22 12:15 Lipase 43 U/L (13-60) 07/21/22 22:58 Vitamin B12 > 2000 pg/mL (232-1245) H 07/22/22 01:46 TSH 5.33 uIU/mL (0.27-4.20) H 07/22/22 01:46 A&P Assessment and plan (1) Elevated troponin: The elevated troponin T, could be related to a non-ST elevation myocardial infarction. The EKG changes are nonspecific. Patient had the D-dimer and the venous duplex admission of the lower 70s which were unremarkable. (2) Hypertension: Currently normotensive. (3) Aortic root dilatation: The aortic root is mildly dilated. No significant change from the previous study. (4) History of TIA (transient ischemic attack): Patient has not had a recurrence of TIA. Currently has no focal neurological deficit. We will continue on the current risk modifying measures (5) History of diabetes mellitus: I may check on his Hemoglobin A1c. The blood glucose level is 160. This needs to be closely monitored. Patient may benefit from Jardiance (6) Hyperlipidemia: Continue on the current medication (7) Chronic kidney disease (CKD): The creatinine is 1.1 today Plan Patient requires a cardiac catheterization, to further evaluate the coronary status. The risk and benefits were discussed. The risk of bleeding, hematoma, vascular injury, myocardial infarction, myocardial perforation, malignant cardiac arrhythmias ,CVA, renal failure and other concomitant complications were explained in detail. Patient understood this well and consented to proceed. Based on the angiogram findings, further recommendations will be made. Attestations Medical Necessity Statement*: Patient requires continued hospital stay for close monitoring and further management Coding Level of Care Code 82014 Diagnoses Elevated troponin R77.8 Hypertension I10 Aortic root dilatation I77.810 History of TIA (transient ischemic attack) Z86.73 History of diabetes mellitus Z86.39 Hyperlipidemia E78.5 Chronic kidney disease (CKD) N18.9
[2022-07-23 08:36] LABS: Basophils % 0.4 %; Eosinophils # 0.2 10^3/uL (0.0-0.8); Eosinophils % 4.3 %; Hematocrit 39.9 % (42.0-52.0); Hemoglobin 12.9 g/dL (11.7-16.6); Lymphocytes # 1.7 10^3/uL (0.8-4.8); Lymphocytes % 30.2 %; Mean Corpuscular HGB Conc 32.3 g/dL (30.0-36.0); Mean Corpuscular Hemoglobin 29.1 pg (28.0-34.0); Mean Corpuscular Volume 89.9 fl (80-94); Mean Platelet Volume 11.1 fL (7.4-10.4); Monocytes # 0.8 10^3/uL (0.2-0.9); Monocytes % 13.8 %; Neutrophils # 2.84 10^3/uL (1.8-7.7); Neutrophils % 50.9 %; Nucleated Red Blood Cells % 0 %; Platelet Count 218 10^3/cmm (130-400); Red Blood Count 4.44 10^6/uL (4.1-5.3); Red Cell Distribution Width 14.3 % (12.1-15.1); White Blood Count 5.6 10^3/uL (4.0-10.0)
[2022-07-23] MEDS: metoprolol succinate ER (24 HR) 25 mg Tablet PO (08:37)
[2022-07-23] MEDS: losartan 50 mg Tablet 100 MG PO (08:37)
[2022-07-23] MEDS: aspirin 81 mg EC Tablet PO (08:39)
[2022-07-23] MEDS: atorvastatin 40 mg Tablet 80 MG PO (08:39)
[2022-07-23] MEDS: donepezil 5 MG Tablet PO (08:39)
[2022-07-23] MEDS: clopidogrel 75 mg Tablet PO (08:39)
[2022-07-23] MEDS: allopurinol 100 mg Tablet PO (08:39)
[2022-07-23] MEDS: sodium chloride 0.9% 1,000 ML 50 ML IV (08:45)
[2022-07-23 08:52] LABS: Blood Urea Nitrogen 15 mg/dL (8-23); Calcium 8.6 mg/dL (8.5-10.5); Carbon Dioxide 23 mmol/L (22-29); Chloride 101 mmol/L (98-107); Glucose 123 mg/dL (65-115); Osmolality Calculated 284 mOsm/kg (285-295); Sodium 136 mmol/L (136-145)
--- NOTE | 2022-07-23 09:46 | XACV_ITS ---
Exam Room: 2 Ht: 165 cm Wt: 93 kg BSA: 2.10 m2 Gender: Male : 1945 Any Known Allergies: Other Exam Priority: Routine Procedure(s): Procedure Description: Diagnostic procedure Procedure Description: Left Heart Catheterization Procedure Description: Coronary Angiography Jamie CARRILLO; Diagnostic Cath Status: Elective Diagnostic Findings * The left main is a medium to large caliber vessel with no significant stenotic lesions. * The left anterior descending artery is a medium caliber vessel which appears to wrap around the LV apex minimally. The proximal and mid LAD was found to have diffuse moderate to heavy calcification. The mid LAD was found to have a long high-grade lesion of 70 to 90%. A large septal pourer bull ladle coming out of this segment was found to have a high-grade ostial stenosis. The first diagonal branch is a relatively small caliber vessel which also was found to have 50 to 70% diffuse disease proximally. The distal left artery descending artery was found to have mild diffuse disease. * The left circumflex artery is a medium to large caliber vessel which gives of a large first obtuse marginal branch which was found to have around a 70 to 80% segmental narrowing. The circumflex proper in the AV groove was found to have mild diffuse disease. The proximal circumflex artery was found to have mild diffuse disease. Some of the side branches of the first obtuse marginal artery also was found to have moderate to severe ostial narrowing. * Right coronary artery is a medium caliber dominant vessel which was found to have multiple high-grade lesions in the proximal and distal segment. The blood flow into the PDA branch was found to be sluggish. There appears to be a high-grade lesion at the ostium of this vessel.. Conclusions 1. This 76-year-old white male presenting with features of a non-ST elevation myocardial infarction. Cardiac radiation revealing the following. 2. 1. No significant lesions in the left main. 2. High-grade complex lesion in the mid LAD. 3. High-grade stenosis in the first large obtuse marginal branch. 4. Multiple high-grade lesions in the proximal and distal RCA with possible ostial lesion in the PDA branch. Mild to moderate diffuse disease in the other vessels. LVEDP of 30 mmHg. Normal LV ejection fraction by echocardiogram. Diagnostic RX Recommendation: CABG LV EDP: 30 mmHg Left Ventriculography Findings: * LV gram was not performed because of the concern about the dye overload. The LVEDP was 30 mmHg. Pressures Phase:Rest AO : 139 / 103 ( 118 ) @ 11:46:00 AM 154 / 90 ( 120 ) @ 11:50:00 AM 155 / 92 ( 113 ) @ 11:50:00 AM LV : 160 / 0 / 30 @ 11:49:00 AM 165 / 0 / 42 @ 11:50:00 AM Valves Phase:DefaultPhase AV : 11.0 @ 11:05:58 AM 11.0 @ 11:05:58 AM AV Mean Gradient: 36.0 @ 11:05:58 AM Clinical Evaluation EBL: 5mL-10mL Procedural Details Procedure Consent Obtained. Pre-Procedure Time Out. Identified patient by full name and date of as verbalized by the patient/guarantor. Does the consent match the physician's order: Yes. Accurate & Complete Informed Consent: Yes. Inpatient/Outpatient History & Physical on Chart: Yes. If H&P is completed, is and addenduem needed: No. Visualize and Verify Site with Patient/Guarantor: N/A. Relevant Radiology Images available: Yes. The risks, benefits, and alternatives of sedation and/or procedure were discussed by physician. The patient agrees to continue. Procedure started. [facility] Clinical Fraility Score: 3: Managing Well. [employer] Indications: ACS > 24 hours. Chest Pain Symptom Assessment: Typical Angina Symptoms. Cardiovascular Instability: No, if yes, Ventricular Arrhythmias. Correct patient, site and procedure confirmed by cath team. Current diagnosis: NSTEMI. PERRLA. 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 Lungs clear x 5 lobes. IV Site on Arrival: 20 gauge in the left wrist. IV Fluids: 0.9% NaCl at KVO. 600 mL infused prior to label printer. Pre Procedural Pulses: bilateral dorsalis pedis was 1+. Pre Procedural Pulses: bilateral posterior tibial was 2+. Pre Procedural Pulses: bilateral radial was 2+. Oxygen started at 2liters/min via nasal canula. right groin was prepped with chloroprep then draped in the usual sterile fashion. right radial was prepped with chloroprep then draped in the usual sterile fashion. Physician notified. Baseline sample Acquired. HR: 87 BPM. Equipment: 6F - Radial. Cardiac Cath Pack. ACIST Manifold Kit Model BT 2000. Heparinized Saline (2 units/mL), 1000 mL bag. Patient's family in the label printer waiting room. Dr. yAala will update at the completion fo the procedure. Physician arrived. Physician scrubbed in. Immediate Pre-Procedure Time Out. Correct Patient: Yes; Correct Procedure: Yes; Correct Site: Yes; Correct Patient Position: Yes; Correct Supplies: Yes; Dried Flammable Prep: Yes; Blood Products Available: N/A;. Lidocaine 1% infiltrated to the right radial. Arterial access obtained. A 5 macedonian Armen catheter in over the standard J wire. Multiple views taken of left coronary artery. Catheter redirected to the RCA, unable to cannulate. Catheter removed over the exchange J wire. A 5 macedonian JR4 catheter in over the exchange J wir to the LV. EDP Sample taken: LV 160/0,30; HR: 63 BPM; SpO2: 96%. Pullback taken: LV 165/0,42; AO 154/90(120); Mean: 36mmHg, Peak to Peak: 11mmHg, SEP: 20sec/min; HR: 69 BPM; SpO2: 96%. Catheter redirected to the RCA. Dr. Matta called to view cine. Multiple views taken of right coronary artery. Side port of sheath attached to Normal Saline flush at KVO to maintain patency. Dr. Matta here to view cine with Dr. Ayala. Catheter removed over the exchange J wire. Dr Ayala scrubbed out. A TR Band was successful obtaining hemostatsis at the Right Radial artery insertion site. TR band placed. Hemostasis obtained. Post Procedure: Pulses reassessed and unchanged. PERRLA. 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 No VTE prophylaxis required. Medication's Wasted: Lidocaine 1% = 2 mL. Medication's Wasted: Nitro = 49.8 mg. Medication's Wasted: Heparin = 1000 units. Medication's Wasted: Other = Fentanyl 50 mcg. Total IV fluids: 50 mL. Post-op diagnosis: Severe 3V disease. Complications: none. Estimated blood loss: 5mL-10mL. Responsiveness - Normal response to verbal stimuli; alert and oriented, PERRLA. Airway - Unaffected, no intervention required; spontaneous ventilation. Circulation: W/N/L, pulses unchanged. Nausea/Vomiting: No. Procedure completed. Patient transferred by bed to 1st floor. Vital chart was stopped. Access Site Site: Right Radial artery Sheath Size: 6 Fr Hemostasis Method: TR Band Hemostasis Success: Successful Procedure Medications Start: 10:20 AM Stop: 10:20 AM Medication: Fentanyl Amount: 50 mcg Route: I.V. Start: 10:29 AM Stop: 10:29 AM Medication: Versed Amount: 1 mg Route: I.V. Start: 10:31 AM Stop: 10:31 AM Medication: Versed Amount: 1 mg Route: I.V. Start: 10:32 AM Stop: 10:32 AM Medication: Verapamil Amount: 5 mg Route: I.A. Start: 10:32 AM Stop: 10:32 AM Medication: Nitrogylcerin Amount: 200 mcg Route: I.A. Start: 10:48 AM Stop: 10:48 AM Medication: Lopressor (metoprolol) Amount: 5 mg Route: I.V. I, the attending physician, have reviewed and verified all procedure medications. Yes, all medications given per verbal order History/Risk Factors Hypertension: Yes Dyslipidemia: Yes Peripheral Arterial Disease (PAD): No Myocardial Infarction (LA): No Obesity: Yes Renal Disease: No Tobacco Use: Never Prior Interventions PCI: No CABG: No Valve Surgery: No Report Signatures Finalized by Dr Johnny Ayala MD [facility] on 07/23/2022 11:41 AM
--- NOTE | 2022-07-23 10:13 | W.PM.OPSUD ---
Surgery/Procedure H&P Update DATE OF PROCEDURE: July 23, 2022 DATE H&P PERFORMED: 07/22/22 H&P UPDATE INFORMATION: I have reviewed H&P completed within last 30 days, I have examined patient prior to procedure and No changes to prior documentation PREOP DIAGNOSIS: NSTEMI/ ASHD PRIMARY INDICATION FOR PROCEDURE: Non-ST elevation myocardial infarction PLANNED PROCEDURE: Left heart catheterization with left and right coronary angiogram and possible PCI PATIENT REASSESSED PRIOR TO SEDATION, WITH NO CHANGE NOTED: Yes PHYSICAL EXAM: alert, oriented x 3, clear to auscultation bilaterally and regular rate & rhythm AIRWAY EVAL/ANESTHESIA PLAN: normal airway, see other exam findings, ASA II, Monitored Anesthesia, Local Anesthesia, Risks, benefits & alternatives of sedation and/or procedure discussed and Patient agrees to continue as planned
[2022-07-23 11:26] LABS: Glucose Point of Care 120 mg/dL (70-110)
--- NOTE | 2022-07-23 11:47 | P.DS_ITS ---
Discharge Providers Date of Admission: 07/22/22 00:35 Date of Discharge: July 23, 2022 Attending Provider at Admission: Eloisa Ayala MD Attending Provider at Discharge: Evette Diallo MD Consults: Dr. Ayala with cardiology Primary Care Provider: Brissa Garland MD Diagnoses at Discharge Discharge Diagnosis (1) Palpitations: Details from hospital stay: Presenting symptom along with intermittent exertional chest pain and significant increase in fatigability lately. Initial heart rate here 110 and regular. Status: Acute (2) Non-ST elevation [place] (NSTEMI): Details from hospital stay: Initial troponin 225 with peak troponin 272.5 at 6 hours with a 6-hour troponin delta of 47.5. Status: Acute (3) 3-vessel coronary artery disease: Details from hospital stay: Underwent cardiac catheterization on July 23 and was found to have mid LAD lesion, OM1 lesion and a distal RCA lesion. Recommendation was for evaluation for coronary artery bypass graft versus a high risk percutaneous intervention best performed at facility with bypass capabilities. Dr. Ayala discussed the case with Dr. Keys at [facility] and Mr. Lyon has been accepted for transfer. Patient does not have a previous diagnosis of known coronary artery disease. Status: Acute (4) Hypertension: Details from hospital stay: Chronically managed with metoprolol, hydrochlorothiazide and telmisartan with good control. Beta-blockade and ARB were continued here with diuretic therapy held secondary to elevation in creatinine beyond previously available values. Status: Chronic (5) Hyperlipidemia: Details from hospital stay: Previous diagnosis though not on chronic treatment. Nonfasting lipid panel here triglycerides of 711, total cholesterol of 246, LDL of 149, HDL of 33 with a total cholesterol to HDL ratio 7.45. Statin therapy initiated during this hospital stay. Status: Chronic (6) Diabetes mellitus, type II: Details from hospital stay: [id number], with hyperglycemia at presentation, hemoglobin A1c 7.2, home metformin held during hospital stay, has been treated with insulin therapy as needed. 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 Status: Chronic (8) Chronic kidney disease (CKD): Details from hospital stay: Creatinine at presentation on July 21 was 1.4. Previously comparable creatinine was 1.1. With holding of diuretic therapy and NSAIDs (patient had as needed naproxen at home) along with IV fluids, creatinine improved to 1.9 on day of cardiac catheterization. 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 Status: Chronic (9) History of TIA (transient ischemic attack): Details from hospital stay: No recent neurological symptoms. Status: Chronic (10) GERD (gastroesophageal reflux disease): Details from hospital stay: Chronically on PPI Status: Chronic (11) Elevated TSH: Details from hospital stay: TSH was checked during the hospital stay secondary to complaint of palpitations and was noted to be mildly elevated at 5.33. Previous TSH in January 2021 was 1.53. Current plan is for reevaluation in the outpatient setting after acute issues have subsided. Status: Acute Reason for Visit Reason for Visit: High Heart Rate Discharge Data Studies Completed and Pending Completed Studies During Hospitalization Category Date Time Status XR chest 1V portable [id number] Stat Exams 07/21/22 22:42 Completed CV. echo complete* [id number] Routine Ultrasound 07/22/22 00:35 Completed US venous duplex lower extremity bilat [CV venous Ultrasound 07/22/22 08:45 [place] [id number]] Routine Pending at discharge Category Date Time Status ADVERTISING CONSULTANT request for service Routine - Completed, official report pending at time of DC summary completion Exams 07/23/22 09:46 Ordered Radiology Impressions Chest X-Ray 07/21/22 22:42 IMPRESSION: No acute findings. Venous Duplex 07/22/22 08:45 IMPRESSION: No evidence of deep vein thrombosis. Laboratory Results WBC 5.6 10^3/uL (4.0-10.0) 07/23/22 08:28 RBC 4.44 10^6/uL (4.1-5.3) 07/23/22 08:28 Hgb 12.9 g/dL (11.7-16.6) 07/23/22 08:28 Hct 39.9 % (42.0-52.0) L 07/23/22 08:28 MCV 89.9 fl (80-94) 07/23/22 08:28 MCH 29.1 pg (28.0-34.0) 07/23/22 08:28 MCHC 32.3 g/dL (30.0-36.0) 07/23/22 08:28 RDW 14.3 % (12.1-15.1) 07/23/22 08: Plt Count 218 10^3/cmm (130-400) 07/23/22 08: MPV 11.1 fL (7.4-10.4) H 07/23/22 08: Neut % (Auto) 50.9 % 07/23/22 08: Lymph % (Auto) 30.2 % 07/23/22 08: [place] % (Auto) 13.8 % 07/23/22 08: Eos % (Auto) 4.3 % 07/23/22 08: Baso % (Auto) 0.4 % 07/23/22: Neut # (Auto) 2.84 10^3/uL (1.8-7.7) 07/23/22 08: Lymph # (Auto) 1.7 10^3/uL (0.8-4.8) 07/23/22 08: [place] # (Auto) 0.8 10^3/uL (0.2-0.9) 07/23/22 08: Eos # (Auto) 0.2 10^3/uL (0.0-0.8) 07/23/22 08: Baso # (Auto) 0.0 10^3/uL (0.0-0.1) 07/23/22 08: Nucleated RBC % (auto) 0 % 07/23/22 08: Nucleated RBCs # 0.0 /100WBC 07/23/22 08: PT 13.00 SECONDS (12.1-14.9) 07/21/22 22:58 INR 0.95 (0.8-1.2) 07/21/22 22:58 D-Dimer 0.51 ug/mIFEU (0-0.59) 07/21/22 22:58 Sodium 136 mmol/L (136-145) 07/23/22 08: Potassium 4.0 mmol/L (3.5-5.1) 07/23/22 08: Chloride 101 mmol/L (98-107) 07/23/22 08: Carbon Dioxide 23 mmol/L (22-29) 07/23/22 08: Anion Gap 16.0 (5-19) 07/23/22 08:28 BUN 15 mg/dL (8-23) 07/23/22 08:28 Creatinine 0.9 mg/dL (0.7-1.2) 07/23/22 08:28 GFR Calculation Not Reportable 07/23/22 08:28 Glucose 123 mg/dL (65-115) H 07/23/22 08:28 POC Glucose 120 mg/dL (70-110) H 07/23/22 11:24 Estimat Average Glucose 160 07/21/22 22:58 Hemoglobin A1c 7.2 % (4.0-6.0) H 07/21/22 22:58 Calculated Osmolality 284 mOsm/kg (285-295) L 07/23/22 08:28 Calcium 8.6 mg/dL (8.5-10.5) 07/23/22 08:28 Magnesium 1.8 mg/dL (1.7-2.3) 07/22/22 01:46 Total Bilirubin 0.4 mg/dL (0.15-1.2) 07/21/22 22:58 AST 53 U/L (0-40) H 07/21/22 22:58 ALT 42 U/L (0-41) H 07/21/22 22:58 Alkaline Phosphatase 53 U/L (40-130) 07/21/22 22:58 Troponin T Baseline 225 ng/L (0-15) H* 07/21/22 22:58 Troponin T 120 Minute 240.9 ng/L (0-15) H 07/22/22 01:46 Delta Troponin T 15.9 ABS# (0-10) H* 07/22/22 01:46 Troponin T Hi Sens 6Hr 272.5 ng/L (0-15) H 07/22/22 05:10 Troponin T Hi Sens 6Hr Delta 47.5 ng/L (0-12) H* 07/22/22 05:10 Total Protein 7.0 g/dL (6.6-8.7) 07/21/22 22:58 Albumin 4.3 g/dL (3.5-5.2) 07/21/22 22:58 Globulin 2.7 g/dL (1.3-4.6) 07/21/22 22:58 Triglycerides 711 mg/dL (0-150) H 07/22/22 12:15 Cholesterol 246 mg/dL (0-200) H 07/22/22 12:15 LDL Cholesterol Direct 149 mg/dL (0-100) H 07/22/22 12:15 LDL Cholesterol, Calc Not Reportable 07/22/22 12:15 HDL Cholesterol 33 mg/dL (60-100) L 07/22/22 12:15 LDL/HDL Ratio Not Reportable 07/22/22 12:15 Cholesterol/HDL Ratio 7.45 mg/dL (1.0-5.00) H 07/22/22 12:15 Lipase 43 U/L (13-60) 07/21/22 22:58 Vitamin B12 > 2000 pg/mL (232-1245) H 07/22/22 01:46 TSH 5.33 uIU/mL (0.27-4.20) H 07/22/22 01:46 Vitals Last Vital Signs Temp 97.7 F 07/23/22 11:18 Pulse 70 07/23/22 11:18 Resp 18 07/23/22 11:18 BP 160/100 07/23/22 11:18 Pulse Ox 95 07/23/22 11:18 O2 Del Method 07/23/22 11:18 Discharge Plan Discharge Patient Disposition: Home Condition: Stable Prescriptions: No Action aspirin [Aspir-81] 81 mg tablet,delayed release (DR/EC) 81 mg PO DAILY metformin 1,000 mg tablet 500 mg PO BID Label Comments: patient states he is no longer taking but has not told his doctor yet nitroglycerin 0.4 mg tablet, sublingual 0.4 mg SUBLINGUAL Q5M PRN (Reason: Chest Pain) Rx Instructions: do not exceed 3 doses per episode omeprazole 20 mg capsule,delayed release(DR/EC) 20 mg PO DAILY metoprolol tartrate 100 mg tablet 100 mg PO BID allopurinol 100 mg tablet 100 mg PO DAILY donepezil 10 mg tablet 5 mg PO DAILY Label Comments: Patient states he is no longer taking as he did not like how it made him feel. Takes prevagen over the counter instead. telmisartan 80 mg tablet 80 mg PO DAILY potassium chloride 10 mEq capsule, extended release 10 meq PO DAILY Qty: 90 3RF hydrochlorothiazide 50 mg tablet 50 mg PO DAILY Qty: 90 3RF naproxen 500 mg tablet 500 mg PO BID PRN (Reason: pain) Qty: 20 0RF Referrals: Brissa Garland MD [Primary Care Provider] - Patient Instructions: Opioid Safety Coding Level of Care Code Acute Code for Chg Fwd Diagnoses Palpitations R00.2 Non-ST elevation [place] (NSTEMI) I21.4 3-vessel coronary artery disease I25.10 Hypertension I10 Hyperlipidemia E78.5 Diabetes mellitus, type II E11.9 Aortic root dilatation I77.810 Chronic kidney disease (CKD) N18.9 History of TIA (transient ischemic attack) Z86.73 GERD (gastroesophageal reflux disease) K21.9 Elevated TSH R79.89
--- NOTE | 2022-07-23 12:14 | P.TS_ITS ---
Transfer Summary Providers Date of Admission: 07/22/22 00:35 Date of Discharge/Transfer: 07/23/22 Attending Provider at Admission: Eloisa Ayala MD Attending Provider at Transfer: Evette Diallo MD Primary Care Provider: Brissa Garland MD Transfer Plans: Anticipated date of transfer: 07/23/22 . Receiving Facility: [facility] . Receiving Provider: Dr Keys, cardiology . Diagnoses at Discharge Discharge Diagnosis (1) Palpitations: Details from hospital stay: Presenting symptom along with intermittent exertional chest pain and significant increase in fatigability lately.? Initial heart rate here 110 and regular. Status: Acute (2) Non-ST elevation [place] (NSTEMI): Details from hospital stay: Initial troponin 225 with peak troponin 272.5 at 6 hours with a 6-hour troponin delta of 47.5.? Status: Acute (3) 3-vessel coronary artery disease: Details from hospital stay: Underwent cardiac catheterization on July 23 and was found to have mid LAD lesion, OM1 lesion and a distal RCA lesion.? Recommendation was for evaluation for coronary artery bypass graft versus a high risk percutaneous intervention best performed at facility with bypass capabilities.? Dr. Ayala discussed the case with Dr. Keys at [facility] and Mr. Lyon has been accepted for transfer.? Patient does not have a previous diagnosis of known coronary artery disease. Status: Acute Permanent problem details: transferred for probable CABG to [facility] on 07/23/2022 (4) Hypertension: Details from hospital stay: Chronically managed with metoprolol, hydrochlorothiazide and telmisartan with good control.? Beta-blockade and ARB were continued here with diuretic therapy held secondary to elevation in creatinine beyond previously available values. Status: Chronic (5) Hyperlipidemia: Details from hospital stay: Previous diagnosis though not on chronic treatment.? Nonfasting lipid panel here triglycerides of 711, total cholesterol of 246, LDL of 149, HDL of 33 with a total cholesterol to HDL ratio 7.45.? Statin therapy initiated during this hospital stay. Status: Chronic (6) Diabetes mellitus, type II: Details from hospital stay: [id number], with hyperglycemia at presentation, hemoglobin A1c 7.2, home metformin held during hospital stay, has been treated with insulin therapy as needed. 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 Kasper, his tawer, on an outpatient basis. Status: Chronic (8) Chronic kidney disease (CKD): Details from hospital stay: Creatinine at presentation on July 21 was 1.4.? Previously comparable creatinine was 1.1.? With holding of diuretic therapy and NSAIDs (patient had as needed naproxen at home) along with IV fluids, creatinine improved to 1.9 on day of cardiac catheterization.? Patient suspected to have chronic kidney disease stage II with baseline Creatinine 1.0-1.1. Status: Chronic (9) History of TIA (transient ischemic attack): Details from hospital stay: No recent neurological symptoms. Status: Chronic (10) GERD (gastroesophageal reflux disease): Details from hospital stay: Chronically on PPI. Status: Chronic (11) Elevated TSH: Details from hospital stay: TSH was checked during the hospital stay secondary to complaint of palpitations and was noted to be mildly elevated at 5.33.? Previous TSH in January 2021 was 1.53.? Current plan is for reevaluation in the outpatient setting after acute issues have subsided. Status: Acute Other Information Additional DC diagnoses/information: Patient has been prescribed Aricept for memory issues but is able to make his own decisions and such. He indicated that the Aricept made him feel strange and he was not actively taking it. 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 History of gout on chronic allopurinol, not acute in this hospital stay Reason for Visit Reason for Visit High Heart Rate Brief History: Mr. Lyon is a 76-year-old gentleman who presented with chief complaint of palpitations. 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 He had some upper epigastric, lower sternal discomfort but really thought his symptoms were from heart rate being high. He stopped several times throughout the day as planned. His symptoms did not improve after getting back locally he came into the emergency room for further evaluation at the encouragement of his . In addition to the symptoms preceding admission, he has had episodes of exertional chest discomfort and shortness of breath that resolved with rest for couple of months with increasing frequency along with progressively worsening fatigue over the same timeframe. He has risk factors for coronary artery disease including diabetes, hypertension, hyperlipidemia but no prior history. Initial troponin was 225. He was admitted for further evaluation and treatment. Hospital Course Hospital Course Patient was admitted to a medical bed. He was started on aspirin, Plavix, statin and beta-blockade. Echocardiogram was done with reported as notated below. Cardiology was consulted and Mr. Lyon underwent cardiac catheterization. He was found to have three-vessel disease with a mid LAD lesion, an OM1 lesion and a distal RCA lesion. Recommendation was for transfer and consideration for CABG versus high risk percutaneous intervention. Patient was excepted by Dr. Keys at [facility] and will be transferred there today. 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 D-dimer was unremarkable. Platelets were normal. And his oxygen saturations were normal at presentation. Venous duplex that was performed and did not show any evidence of deep vein thrombosis. TSH was empirically checked due to complaint of palpitations and initial tachycardia. It was slightly elevated. Had been normal when last checked in January 2021. With acute issues, currently recommending repeat evaluation in 4 to 6 weeks after acute issues have resolved. Hemoglobin A1c was at 7.2. Patient is not on a chronic statin but does have significant dyslipidemia with low HDL and elevated total cholesterol and LDL. Will need prescription for appropriate management at discharge from [facility]. Patient was taking naproxen for pain as needed, it was held secondary to increased creatinine; currently recommend continued holding. Home hydrochlorothiazide was also held secondary to increased creatinine. Anticipate it may not need to be restarted with other potential medications to be initiated though this will have to be evaluated at a later date. Patient's has a history of a pacemaker placement. Patient's daughter is an exceptional SCREW MACHINE OPERATOR SWISS TYPE nurse at [employer]. Reasons for transfer were explained to them by both myself and Dr. Ayala. Both were given an opportunity to ask questions as was Mr. Lyon. Mrs. Lyon is understandably a little unsettled by the findings today and will have more questions once her mind processes what is happening a bit more. Mr. Lyon's goals are to get back to driving when he can and to get back home feeling better. At the time of transfer patient is in stable condition. Blood pressure was elevated immediately postprocedure but has improved. Patient had a right radial approach. He has good capillary refill at all fingertips, normal sensation. Band is in place. Speech is clear, face symmetric, moving all extremities. Lungs are clear to auscultation bilaterally. He has a regular rate and rhythm. He is alert, oriented and handling the news been found with understanding thus far. TS Data Studies Completed and Pending Completed Studies During Hospitalization Category Date Time Status LINOLEUM LAYER APPRENTICE request for service Routine Exams 07/23/22 09:46 Official report pending; study performed XR chest 1V portable [id number] Stat Exams 07/21/22 22:42 Completed CV. echo complete* [id number] Routine Ultrasound 07/22/22 00:35 Completed US venous duplex lower extremity bilat [CV venous Ultrasound 07/22/22 08:45 [place] [id number]] Routine Laboratory Last Values WBC 5.6 10^3/uL (4.0-10.0) 07/23/22 08:28 RBC 4.44 10^6/uL (4.1-5.3) 07/23/22 08:28 Hgb 12.9 g/dL (11.7-16.6) 07/23/22 08:28 Hct 39.9 % (42.0-52.0) L 07/23/22 08:28 MCV 89.9 fl (80-94) 07/23/22 08:28 MCH 29.1 pg (28.0-34.0) 07/23/22 08:28 MCHC 32.3 g/dL (30.0-36.0) 07/23/22 08:28 RDW 14.3 % (12.1-15.1) 07/23/22 08:28 Plt Count 218 10^3/cmm (130-400) 07/23/22 08:28 MPV 11.1 fL (7.4-10.4) H 07/23/22 08:28 Neut % (Auto) 50.9 % 07/23/22 08:28 Lymph % (Auto) 30.2 % 07/23/22 08:28 King % (Auto) 13.8 % 07/23/22 08:28 Eos % (Auto) 4.3 % 07/23/22 08:28 Baso % (Auto) 0.4 % 07/23/22 08:28 Neut # (Auto) 2.84 10^3/uL (1.8-7.7) 07/23/22 08:28 Lymph # (Auto) 1.7 10^3/uL (0.8-4.8) 07/23/22 08:28 King # (Auto) 0.8 10^3/uL (0.2-0.9) 07/23/22 08:28 Eos # (Auto) 0.2 10^3/uL (0.0-0.8) 07/23/22 08:28 Baso # (Auto) 0.0 10^3/uL (0.0-0.1) 07/23/22 08:28 Nucleated RBC % (auto) 0 % 07/23/22 08: Nucleated RBCs # 0.0 /100WBC 07/23/22 08:28 PT 13.00 SECONDS (12.1-14.9) 07/21/22 22:58 INR 0.95 (0.8-1.2) 07/21/22 22:58 D-Dimer 0.51 ug/mIFEU (0-0.59) 07/21/22 22:58 Sodium 136 mmol/L (136-145) 07/23/22 08:28 Potassium 4.0 mmol/L (3.5-5.1) 07/23/22 08:28 Chloride 101 mmol/L (98-107) 07/23/22 08:28 Carbon Dioxide 23 mmol/L (22-29) 07/23/22 08:28 Anion Gap 16.0 (5-19) 07/23/22 08:28 BUN 15 mg/dL (8-23) 07/23/22 08:28 Creatinine 0.9 mg/dL (0.7-1.2) 07/23/22 08:28 GFR Calculation Not Reportable 07/23/22 08:28 Glucose 123 mg/dL (65-115) H 07/23/22 08:28 POC Glucose 120 mg/dL (70-110) H 07/23/22 11:24 Estimat Average Glucose 160 07/21/22 22:58 Hemoglobin A1c 7.2 % (4.0-6.0) H 07/21/22 22:58 Calculated Osmolality 284 mOsm/kg (285-295) L 07/23/22 08:28 Calcium 8.6 mg/dL (8.5-10.5) 07/23/22 08:28 Magnesium 1.8 mg/dL (1.7-2.3) 07/22/22 01:46 Total Bilirubin 0.4 mg/dL (0.15-1.2) 07/21/22 22:58 AST 53 U/L (0-40) H 07/21/22 22:58 ALT 42 U/L (0-41) H 07/21/22 22:58 Alkaline Phosphatase 53 U/L (40-130) 07/21/22 22:58 Troponin T Baseline 225 ng/L (0-15) H* 07/21/22 22:58 Troponin T 120 Minute 240.9 ng/L (0-15) H 07/22/22 01:46 Delta Troponin T 15.9 ABS# (0-10) H* 07/22/22 01:46 Troponin T Hi Sens 6Hr 272.5 ng/L (0-15) H 07/22/22 05:10 Troponin T Hi Sens 6Hr Delta 47.5 ng/L (0-12) H* 07/22/22 05:10 Total Protein 7.0 g/dL (6.6-8.7) 07/21/22 22:58 Albumin 4.3 g/dL (3.5-5.2) 07/21/22 22:58 Globulin 2.7 g/dL (1.3-4.6) 07/21/22 22:58 Triglycerides 711 mg/dL (0-150) H 07/22/22 12:15 Cholesterol 246 mg/dL (0-200) H 07/22/22 12:15 LDL Cholesterol Direct 149 mg/dL (0-100) H 07/22/22 12:15 LDL Cholesterol, Calc Not Reportable 07/22/22 12:15 HDL Cholesterol 33 mg/dL (60-100) L 07/22/22 12:15 LDL/HDL Ratio Not Reportable 07/22/22 12:15 Cholesterol/HDL Ratio 7.45 mg/dL (1.0-5.00) H 07/22/22 12:15 Lipase 43 U/L (13-60) 07/21/22 22:58 Vitamin B12 > 2000 pg/mL (232-1245) H 07/22/22 01:46 TSH 5.33 uIU/mL (0.27-4.20) H 07/22/22 01:46 PREVIOUS LABS for comparison 01/26/21 07/21/22 05:48 22:58 BUN 23 17 Creatinine 1.1 1.4 H AST 26 ALT 24 Radiology Impressions Chest X-Ray 07/21/22 22:42 IMPRESSION: No acute findings. Venous Duplex 07/22/22 08:45 IMPRESSION: No evidence of deep vein thrombosis. ECHO 07/22/2022 09:35 CONCLUSIONS ?Normal left ventricular size and ejection fraction, EF 56 %.? ?The basal inferior wall segment was found to be somewhat ?dyskinetic.Grade I/IV diastolic dysfunction (abnormal relaxation ?filling pattern), normal to mildly elevated filling pressures. ?Mildly increased left atrial size. ?Right ventricle appears to be normal size and ejection fraction. ?Echodensities in the right ventricle suggesting possible ?moderator band . ?Trace tricuspid valve regurgitation. ?Thickened aortic and mitral valves ?Estimated pulmonary artery peak systolic pressure of 22 mmHg.? ?This could be an underestimation because of poor Doppler ?signals. ?There is no pericardial effusion. Recent Clincial Data Vital Signs Temp Pulse Resp BP Pulse Ox O2 Del Method O2 Del Method 07/23/22 11:18 97.7 F 70 18 160/100 95 Room Air 07/23/22 09:14 77 16 96 Room Air 07/23/22 08:37 156/104 07/23/22 08:20 78 96 Room Air 07/23/22 07:48 98.1 F 85 22 H 145/105 94 Room Air 07/23/22 04:00 97.8 F 83 22 H 141/90 95 Room Air 07/23/22 04:03 78 Intake & Output/Weight 07/21/22 07/22/22 07/23/22 07/24/22 06:59 06:59 06:59 06:59 Intake Total 120 / 120 3100 / 3100 Balance 120 / 120 3100 / 3100 Weight 95.844 kg 98.792 kg TS Medications Medications Acetaminophen (Acetaminophen 500 Mg Tablet) 500 mg PO Q4H PRN PRN Reason: fever Albuterol/Ipratropium (Ipratropium-Albuterol 3 Ml Neb) 3 ml INHALATION Q6H PRN PRN Reason: SHORTNESS OF BREATH Allopurinol (Allopurinol 100 Mg Tablet) 100 mg PO DAILY [facility] Last Admin: 07/23/22 08:39 Dose: 100 mg Aspirin (Aspirin 81 Mg Ec Tablet) 81 mg PO DAILY [facility] Last Admin: 07/23/22 08:39 Dose: 81 mg Atorvastatin Calcium (Atorvastatin 40 Mg Tablet) 80 mg PO DAILY [facility] Last Admin: 07/23/22 08:39 Dose: 80 mg Clopidogrel Bisulfate (Clopidogrel 75 Mg Tablet) 75 mg PO DAILY [facility] Last Admin: 07/23/22 08:39 Dose: 75 mg Dextrose (Dextrose 50% Syringe 50 Ml) 25 ml IVP ONCE PRN; Protocol PRN Reason: hypoglycemia protocol Dextrose (Dextrose 50% Syringe 50 Ml) 50 ml IVP PRN PRN; Protocol PRN Reason: hypoglycemia protocol Donepezil HCl (Donepezil 5 Mg Tablet) 5 mg PO DAILY [facility] Last Admin: 07/23/22 08:39 Dose: 5 mg Enoxaparin Sodium (Enoxaparin 100 Mg/Ml Syringe) 90 mg SUBCUT Q12H [facility] Last Admin: 07/22/22 22:42 Dose: 90 mg Glucagon (Glucagon 1 Mg/Ml Inj 1 Ml) 1 mg IM ONCE PRN; Protocol PRN Reason: Adult Acute Hypoglycemia Prot. Sodium Chloride (Sodium Chloride 0.9%) 1,000 mls @ 100 mls/hr IV .Q10H [facility] Last Admin: 07/23/22 04:43 Dose: 100 mls/hr Dextrose (D5w) 500 mls @ 100 mls/hr IV ONCE PRN; Protocol PRN Reason: Adult Acute Hypoglycemia Prot Sodium Chloride (Sodium Chloride 0.9%) 1,000 mls @ 50 mls/hr IV .Q20H ONE Stop: 07/24/22 04:14 Last Admin: 07/23/22 08:45 Dose: 50 mls/hr Insulin Human Lispro (Insulin Lispro 100 Unit/1 Ml) 0 unit SUBCUT BEDTIME [facility]; Protocol Last Admin: 07/22/22 20:33 Dose: 1 unit Insulin Human Lispro (Insulin Lispro 100 Unit/1 Ml) 0 unit SUBCUT TIDWM [facility]; Protocol Last Admin: 07/23/22 11:53 Dose: Not Given Losartan Potassium (Losartan 50 Mg Tablet) 100 mg PO DAILY [facility] Last Admin: 07/23/22 08:37 Dose: 100 mg Metoprolol Succinate (Metoprolol Succinate Er (24 Hr) 25 Mg Tablet) 25 mg PO DAILY [facility] Last Admin: 07/23/22 08:37 Dose: 25 mg Ondansetron HCl (Ondansetron 2 Mg/Ml Sdv 2 Ml) 4 mg IVP Q6H PRN PRN Reason: NAUSEA AND VOMITING Discontinued Medications Aspirin (Aspirin 81 Mg Chew Tablet) 324 mg PO NOW ONE Stop: 07/21/22 23:40 Last Admin: 07/22/22 00:04 Dose: 324 mg Clopidogrel Bisulfate (Clopidogrel 300 Mg Tablet) 300 mg PO ONCE ONE Stop: 07/22/22 00:36 Last Admin: 07/22/22 01:34 Dose: 300 mg Lidocaine HCl 15 ml/ Al Hydrox /Mg Hydrox/Simethicone 30 ml/Sucralfate 1 gm 0 ml PO ONCE ONE Stop: 07/22/22 00:49 Last Admin: 07/22/22 01:39 Dose: 1 suspension Diphenhydramine HCl (Diphenhydramine 50 Mg Capsule) 50 mg PO ONCE ONE Stop: 07/23/22 08:16 Last Admin: 07/23/22 11:34 Dose: Not Given Enoxaparin Sodium (Enoxaparin 100 Mg/Ml Syringe) 90 mg SUBCUT ONCE ONE Stop: 07/21/22 23:56 Last Admin: 07/22/22 00:04 Dose: 90 mg Enoxaparin Sodium (Enoxaparin 100 Mg/Ml Syringe) 90 mg SUBCUT Q24H [facility] Fentanyl (Fentanyl 50 Mcg/Ml Inj 2ml) Confirm Administered Dose 100 mcg .ROUTE .STK-MED ONE Stop: 07/23/22 09:48 Heparin Sodium (Porcine) (Heparin 5,000 Unit/Ml Inj 1 Ml) Confirm Administered Dose 10,000 unit .ROUTE .STK-MED ONE Stop: 07/23/22 09:48 Lidocaine HCl (Xylocaine) Confirm Administered Dose 4 mls @ as directed .ROUTE .STK-MED ONE Stop: 07/23/22 09:49 Labetalol HCl (Labetalol 5 Mg/Ml Sdv 20ml) 10 mg IVP ONCE ONE Stop: 07/21/22 23:06 Last Admin: 07/21/22 23:18 Dose: 10 mg Lorazepam (Lorazepam 2 Mg/Ml Inj 1 Ml) 0.5 mg IVP NOW ONE Stop: 07/21/22 23:57 Last Admin: 07/22/22 00:03 Dose: 0.5 mg Losartan Potassium (Losartan 50 Mg Tablet) 100 mg PO DAILY [facility] Last Admin: 07/22/22 08:59 Dose: 100 mg Metoprolol Tartrate (Metoprolol Tartrate 1 Mg/1 Ml Sdv 5 Ml) Confirm Administered Dose 5 mg .ROUTE .STK-MED ONE Stop: 07/23/22 10:49 Midazolam HCl (Midazolam 1 Mg/Ml Inj 2 Ml) Confirm Administered Dose 2 mg .ROUTE .STK-MED ONE Stop: 07/23/22 09:47 Nitroglycerin (Nitroglycerin 5 Mg/Ml Sdv 10 Ml) Confirm Administered Dose 50 mg .ROUTE .STK-MED ONE Stop: 07/23/22 09:47 Pneumococcal Polyvalent Vaccine (Pneumococcal (23 Valent) Sdv 0.5 Ml) 0.5 ml IM .ONCE ONE Stop: 07/22/22 00:51 Last Admin: 07/22/22 01:35 Dose: 0.5 ml Potassium Chloride (Potassium Chloride Er 20 Meq Tablet) 40 meq PO ONCE ONE Stop: 07/22/22 00:49 Last Admin: 07/22/22 01:34 Dose: 40 meq Verapamil HCl (Verapamil 2.5 Mg/Ml Inj 2ml) Confirm Administered Dose 5 mg .ROUTE .STK-MED ONE Stop: 07/23/22 09:47 Allergies gabapentin Allergy (Verified 07/21/22 22:52) Unknown lisinopril Allergy (Verified 07/21/22 22:52) Unknown Home Medications aspirin 81 mg tablet,delayed release (Aspir-) 81 mg PO DAILY 10/02/19 [History Confirmed 07/22/22] metformin 1,000 mg tablet 500 mg PO BID 10/02/19 [History Confirmed 07/22/22] nitroglycerin 0.4 mg sublingual tablet 0.4 mg sublingual Q5M PRN Chest Pain 10/02/19 [History Confirmed 07/22/22] omeprazole 20 mg capsule,delayed release 20 mg PO DAILY 10/02/19 [History Confirmed 07/22/22] metoprolol tartrate 100 mg tablet 100 mg PO BID 09/28/20 [History Confirmed 07/22/22] telmisartan 80 mg tablet 80 mg PO DAILY 10/12/20 [History Confirmed 07/22/22] naproxen 500 mg tablet 500 mg PO BID PRN pain #20 tabs 09/09/21 [Rx Confirmed 07/22/22] allopurinol 100 mg tablet 100 mg PO DAILY 02/09/22 [History Confirmed 07/22/22] donepezil 10 mg tablet 5 mg PO DAILY 02/09/22 [History Confirmed 07/22/22] potassium chloride 10 mEq capsule,extended release 10 meq PO DAILY #90 caps 02/24/22 [Rx Confirmed 07/22/22] hydrochlorothiazide 50 mg tablet 50 mg PO DAILY #90 tabs 03/17/22 [Rx Confirmed 07/22/22] Discharge Plan Discharge Patient Disposition: Xfer Short-Term Hosp Condition: Stable Prescriptions: No Action aspirin [Aspir-81] 81 mg tablet,delayed release (DR/EC) 81 mg PO DAILY metformin 1,000 mg tablet 500 mg PO BID Label Comments: patient states he is no longer taking but has not told his doctor yet nitroglycerin 0.4 mg tablet, sublingual 0.4 mg SUBLINGUAL Q5M PRN (Reason: Chest Pain) Rx Instructions: do not exceed 3 doses per episode omeprazole 20 mg capsule,delayed release(DR/EC) 20 mg PO DAILY metoprolol tartrate 100 mg tablet 100 mg PO BID allopurinol 100 mg tablet 100 mg PO DAILY donepezil 10 mg tablet 5 mg PO DAILY Label Comments: Patient states he is no longer taking as he did not like how it made him feel. Takes prevagen over the counter instead. telmisartan 80 mg tablet 80 mg PO DAILY potassium chloride 10 mEq capsule, extended release 10 meq PO DAILY Qty: 90 3RF hydrochlorothiazide 50 mg tablet 50 mg PO DAILY Qty: 90 3RF naproxen 500 mg tablet 500 mg PO BID PRN (Reason: pain) Qty: 20 0RF Discharge Orders: Discharge Order (Routine); Ordered 07/23/22 Ordered By: Evette Diallo Transfer Out of Facility (Order); Ordered 07/23/22 Ordered By: Evette Diallo Referrals: Brissa Garland MD [Primary Care Provider] - Assessment: Three-vessel coronary artery disease Plan of Treatment: Transferring to [facility] for further evaluation and consideration for CABG Transfer Attestations Time Spent in Transfer Care: greater than 30 min Specific Discharge Activities: educating patient, educating and/or supporting family/caregiver, discussing with pcp/other providers, documenting/other paperwork and evaluating patient/reviewing data Status at Transfer: Cognitive status at transfer: cognitively intact ; Behavioral status at transfer: cooperative ; Functional status at transfer: independent ambulation ; Quality Metrics Clinical Quality Measures [ Acute Myocardial Infaction (NSTEMI) { Clinical Trial Participant: No; Contraindication to aspirin: None; Aspirin prescribed; Contraindication to statin: Patient transfer;}] Coding Level of Care Code 16097 Total time (in minutes) for Discharge: 60 Diagnoses Palpitations R00.2 Non-ST elevation [place]Y (NSTEMI) I21.4 3-vessel coronary artery disease I25.10 Hypertension I10 Hyperlipidemia E78.5 Diabetes mellitus, type II E11.9 Aortic root dilatation I77.810 Chronic kidney disease (CKD) N18.9 History of TIA (transient ischemic attack) Z86.73 GERD (gastroesophageal reflux disease) K21.9 Elevated TSH R79.89
[2022-07-23] MEDS: enoxaparin 100 mg/mL Syringe 90 MG SUBCUT (12:22)
--- NOTE | 2022-07-23 12:27 | PC.NURSE ---
Patient received back from [facility] at 1108am with TR band on right wrist. No hematoma noted. Patient is being referred to [facility] for CABG. Hypertension noted upon return. BP was 160/100. Patient doing well, and daughter with patient at bedside.
[2022-07-23 16:33] LABS: Glucose Point of Care 156 mg/dL (70-110)
--- NOTE | 2022-07-23 17:32 | PC.NURSE ---
Patient left stable with EMS en route to [facility] at 1708. Report called to MADELINE London at [facility]. Patient being transferred to room 4106-2. Daughter and at side. All reports sent with patient and EMS personnel.
== END 2022-07-23 17:32 | disposition short-term general hospital (02) | DRG 281 ==
LOC: ER 23:59 → CSU 07-22 00:31
PROVIDERS: Internal Medicine Cardiovascular Disease; Admitting Provider Internal Medicine; Emergency Provider Emergency Medicine; PCP Family Medicine; Visit Provider Hospitalist
PROC: 4A023N7 Measurement of Cardiac Sampling and Pressure, Left Heart, Percutaneous Approach (ICD-10-PCS; principal; 2022-07-23 10:00)
DX: I21.4 Non-ST elevation (NSTEMI) myocardial infarction (principal); I13.0 Hypertensive heart and chronic kidney disease with heart failure and stage 1 through stage 4 chronic kidney disease, or unspecified chronic kidney disease; I50.32 Chronic diastolic (congestive) heart failure; N17.9 Acute kidney failure, unspecified; I25.10 Atherosclerotic heart disease of native coronary artery without angina pectoris; Z95.0 Presence of cardiac pacemaker; Z79.82 Long term (current) use of aspirin; E66.01 Morbid (severe) obesity due to excess calories; Z68.36 Body mass index [BMI] 36.0-36.9, adult; E11.22 Type 2 diabetes mellitus with diabetic chronic kidney disease; N18.2 Chronic kidney disease, stage 2 (mild); E11.42 Type 2 diabetes mellitus with diabetic polyneuropathy; I71.21 Aneurysm of the ascending aorta, without rupture; K21.9 Gastro-esophageal reflux disease without esophagitis; E78.2 Mixed hyperlipidemia; E87.6 Hypokalemia; Z86.73 Personal history of transient ischemic attack (TIA), and cerebral infarction without residual deficits; M10.9 Gout, unspecified
CPT/HCPCS: 36415; 36416; 71045; 80048; 80053; 80061; 82607; 82962; 83036; 83690; 83721; 83735; 84443; 84484; 85025; 85378; 85610; 90471; 90732; 93005; 93306; 93458; 93970; 96365; 96372; 96374; 96375; 96376; 99152; 99153; 99285; C1769; C1887; C1894; J1644; J1650; J1815; J2060; J2250; J3010; J3490; J7030; Q9967

== ENCOUNTER 2022-08-12 16:56 | Emergency (ER) | payer OTHER, SELFPAY ==
[2022-08-12 17:05] VITALS: BP 138/77; PULSE 78; RESP 18; TEMP 36.2; O2SAT 95; BMI 32.1
[2022-08-12 17:11] VITALS: BP 126/74; PULSE 78; RESP 20; O2SAT 96
--- NOTE | 2022-08-12 18:01 | XRR_ITS ---
PROCEDURE INFORMATION: Exam: XR Chest Exam date and time: 08/12/2022 6:20 PM Age: 76 years old Clinical indication: Cough; Prior surgery; Surgery type: Recent triple bypass; Additional info: Cough and congestion TECHNIQUE: Imaging protocol: Radiologic exam of the chest. Views: 2 views. COMPARISON: CR (CHEST, ) 07/21/2022 10:50 PM FINDINGS: Lungs: Unremarkable. No consolidation. Pleural spaces: Unremarkable. No pleural effusion. No pneumothorax. Heart/Mediastinum: Sequela of prior CABG. No cardiomegaly. Bones/joints: Sternotomy wires noted. Visualized osseous structures are intact. XR/XR chest 2V* [id number] IMPRESSION: No acute findings.
[2022-08-12 18:04] VITALS: RESP 21; O2SAT 94
[2022-08-12] MEDS: fentaNYL 50 mcg/mL INJ 2mL IVP (18:04)
[2022-08-12] MEDS: guaiFENesin-codeine UDC 10 mL PO (18:06)
[2022-08-12] MEDS: sodium chloride 0.9% 1,000 ML 150 ML IV (18:07)
--- NOTE | 2022-08-12 18:10 | ECG_ITS ---
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 Measurements Intervals [place] Rate: 73 P: 47 MA: 211 QRS: -37 QRSD: 97 T: -43 QT: 393 QTc: 435 Interpretive Statements SINUS RHYTHM WITH FIRST DEGREE AV BLOCK LOW QRS VOLTAGE IN PRECORDIAL LEADS [QRS DEFLECTION < 1.0 mV IN CHEST LEADS] POSSIBLE RIGHT VENTRICULAR CONDUCTION DELAY [RSR (QR) IN V1/V2] PROBABLE ANTEROLATERAL MYOCARDIAL INFARCTION , OF INDETERMINATE AGE [35 ms Q WAVE IN I/aVL/V3-V6] Possible old inferior wall GA Compared to ECG 07/22/2022 04:44:56 ST (T wave) deviation no longer present Myocardial infarct finding still present Electronically Signed On 08-13-2022 16:34:56 CDT by Johnny Ayala M.D. [email or web address]
[2022-08-12 18:11] VITALS: PULSE 74; O2SAT 95
[2022-08-12 18:31] LABS: Basophils # 0.1 10^3/uL (0.0-0.1); Basophils % 0.9 %; Eosinophils # 0.7 10^3/uL (0.0-0.8); Eosinophils % 8.5 %; Hematocrit 39.5 % (42.0-52.0); Hemoglobin 12.8 g/dL (11.7-16.6); Lymphocytes % 25.2 %; Mean Corpuscular HGB Conc 32.4 g/dL (30.0-36.0); Mean Corpuscular Hemoglobin 28.8 pg (28.0-34.0); Mean Corpuscular Volume 88.8 fl (80-94); Mean Platelet Volume 10.1 fL (7.4-10.4); Monocytes # 1.2 10^3/uL (0.2-0.9); Monocytes % 15.2 %; Neutrophils # 3.88 10^3/uL (1.8-7.7); Neutrophils % 49.8 %; Nucleated Red Blood Cells % 0 %; Platelet Count 668 10^3/cmm (130-400); Red Blood Count 4.45 10^6/uL (4.1-5.3); Red Cell Distribution Width 14.1 % (12.1-15.1); White Blood Count 7.8 10^3/uL (4.0-10.0)
[2022-08-12 19:00] VITALS: PULSE 79; RESP 22; O2SAT 97
[2022-08-12 19:00] LABS: Alanine Aminotransferase 56 U/L (0-41); Albumin Level 3.8 g/dL (3.5-5.2); Alkaline Phosphatase 87 U/L (40-130); Anion Gap 17.7 (5-19); Aspartate Amino Transferase 33 U/L (0-40); Blood Urea Nitrogen 14 mg/dL (8-23); Calcium 8.8 mg/dL (8.5-10.5); Carbon Dioxide 24 mmol/L (22-29); Chloride 99 mmol/L (98-107); Globulin 3.4 g/dL (1.3-4.6); Glucose 112 mg/dL (65-115); NT Pro B Type Natriuretic Pept 652 pg/mL (0-450); Osmolality Calculated 285 mOsm/kg (285-295); Potassium 3.7 mmol/L (3.5-5.1); Sodium 137 mmol/L (136-145); Total Bilirubin 0.3 mg/dL (0.15-1.2); Total Protein 7.2 g/dL (6.6-8.7)
--- NOTE | 2022-08-12 19:30 | W.ED.URI ---
HPI - URI/Sore Throat General: Chief Complaint: Upper Respiratory Infection Stated Complaint: Cough, Sent from [place] Time Seen by Provider: 08/12/22 17:24 History of Present Illness: 76-year-old male presents emergency department chief complaint of having posttussive chest pain. The patient reports that he had recent cardiac surgery approximate 2 weeks ago he reports he has had a moderate productive cough since that time which he contact the clinic that suggest he go to the ER for further assessment and management the patient reports having no other associated symptoms reports no fevers or chills. The patient presents to the ER for further assessment and management Associated symptoms: Reports chest pain (With coughing reproducible); Deny abdominal pain, chills, fever(s), headache(s), nausea or vomiting Review of Systems General: Reports: 10 or more systems reviewed and unremarkable except in HPI and below Const: Denies: fever(s), chills, fatigue or malaise Eyes: Denies: change in vision or blurry vision Card: Reports: chest pain (With coughing reproducible); Denies: palpitations Resp: Reports: productive cough; Denies: dyspnea GI: Denies: abdominal pain, nausea or vomiting : Denies: flank pain Musc: Denies: extremity pain or extremity swelling Skin/Breast: Denies: rash or pruritus Neuro: Denies: headache(s) Psych: Denies: anxiety or depression Ben/Lymph: Denies: easy bleeding All/Imm: Denies: urticaria, throat swelling or facial swelling PFS ED PFSH: Medical History Aortic root dilatation CAD (coronary artery disease) Diabetes mellitus, type II with nephropathy and neuropathy GERD (gastroesophageal reflux disease) Gout Hearing loss History of cardiovascular stress test 12/2018 Exercise Sestamibi: normal myocardial imaging, normal EKG response to treadmill, METs max 10.2 History of Holter monitoring 01/2021 sinus vj to sinus tachycardia (54-128, average 71), 1st degree AVB, PVC burden 1.72%, PSVC burden 0.01% History of TIA (transient ischemic attack) Hyperlipidemia Hypertension Obstruction of cystic duct Osteoarthritis Thoracic ascending aortic aneurysm Surgical History History of cardiac catheterization 07/23/2022 mid LAD, distal RCA, OM 1 lesions Hx of appendectomy S/P tonsillectomy and adenoidectomy Status post colonoscopy Status post laparoscopic cholecystectomy (01/25/21) Family History Other CAD (coronary artery disease) Social History Smoking and tobacco status: never smoked Alcohol intake: current Alcohol intake frequency: holidays/special occasions only Substance/Drug Use: never Physical Exam Const: COMMON NORMALS: no acute distress, patient oriented x3 and healthy appearing HENMT: COMMON NORMALS: normocephalic and atraumatic HEAD & SCALP: normocephalic and atraumatic Eye: COMMON NORMALS: Equal, round and reactive pupils present and EOMs intact bilaterally PUPIL: Yes Equal, round and reactive pupils present Neck/C-Spine: COMMON NORMALS: full ROM, supple and no JVD Lymph: LYMPHATIC: no lymphadenopathy noted Chest: COMMONS NORMALS: normal palpation of entire chest wall; negative for normal inspection of the chest (Reproducible chest wall pain noted over the sternotomy region no obvious cr) Resp: COMMON NORMALS: normal respiratory effort, No retractions and clear to auscultation bilaterally EFFORT & INSPECTION: Yes able to speak in complete sentences and Yes symmetric chest movement AUSCULTATION: clear to auscultation bilaterally OTHER: Equal breath sounds appreciated bilaterally with no obvious wheezing crackles rales or rhonchi noted Cardio: COMMON NORMALS: no JVD, regular rate and regular rhythm RATE: regular rate RHYTHM: regular rhythm GI: COMMON NORMALS: Normal to inspection, nondistended, normoactive bowel sounds present, Soft to palpation and non-tender INSPECTION: Yes normal to inspection PALPATION: Yes Soft to palpation : COMMON NORMALS: Yes no CVA tenderness BLADDER/KIDNEY EXAM: Yes no CVA tenderness Back/Pelvis: COMMON NORMALS: no CVA tenderness Extremity: COMMON NORMALS: normal to inspection and full ROM Neuro: COMMON NORMALS: patient oriented x3, CN's II-XII intact bilaterally, moves all extremities and no focal motor deficits Psych: COMMON NORMALS: mental status grossly normal, Normal thought process present, cooperative and normal affect THOUGHT PROCESS: Normal thought process present Skin: COMMON NORMALS: no rashes or lesions noted GENERAL SKIN EXAM: no rashes or lesions noted Course Vital Signs: Vital signs: Vital Signs Temperature 97.1 F L 08/12/22 17:05 Pulse Rate 79 08/12/22 19:00 Respiratory Rate 22 H 08/12/22 19:00 Blood Pressure 126/74 08/12/22 17:11 Pulse Oximetry 97 08/12/22 19:00 Oxygen Delivery Me thod Room Air 08/12/22 19:00 MDM - URI/Sore Throat Medical Decision Making Due to the patient's symptom condition basic lab work imaging was obtained no white count 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 elevated chest x-ray came back unremarkable no obvious infiltrates patient appears to have upper respiratory tract infection he was started on some Robitussin-AC and significantly improved his cough and congestion and chest discomfort patient was advised to further follow-up with his primary care doctor or game attendant on Monday which she was advised to return the interim if any of his symptoms persist or worse patient had no observable findings of heart failure appreciated he also was started on incidence primary reduce the likelihood additional atelectasis and/or pneumonia developing patient was advised to return the interim if any of his symptoms persist or worse Lab Data 08/12/22 18:16 08/12/22 18:16 Radiology Impressions Chest X-Ray 08/12/22 18:01 IMPRESSION: No acute findings. Laboratory Results WBC 7.8 10^3/uL (4.0-10.0) 08/12/22 18:16 RBC 4.45 10^6/uL (4.1-5.3) 08/12/22 18:16 Hgb 12.8 g/dL (11.7-16.6) 08/12/22 18:16 Hct 39.5 % (42.0-52.0) L 08/12/22 18:16 MCV 88.8 fl (80-94) 08/12/22 18:16 MCH 28.8 pg (28.0-34.0) 08/12/22 18:16 MCHC 32.4 g/dL (30.0-36.0) 08/12/22 18:16 RDW 14.1 % (12.1-15.1) 08/12/22 18:16 Plt Count 668 10^3/cmm (130-400) H 08/12/22 18:16 MPV 10.1 fL (7.4-10.4) 08/12/22 18:16 Neut % (Auto) 49.8 % 08/12/22 18:16 Lymph % (Auto) 25.2 % 08/12/22 18:16 Mcdonough % (Auto) 15.2 % 08/12/22 18:16 Eos % (Auto) 8.5 % 08/12/22 18:16 Baso % (Auto) 0.9 % 08/12/22 18:16 Neut # (Auto) 3.88 10^3/uL (1.8-7.7) 08/12/22 18:16 Lymph # (Auto) 2.0 10^3/uL (0.8-4.8) 08/12/22 18:16 Mcdonough # (Auto) 1.2 10^3/uL (0.2-0.9) H 08/12/22 18:16 Eos # (Auto) 0.7 10^3/uL (0.0-0.8) 08/12/22 18:16 Baso # (Auto) 0.1 10^3/uL (0.0-0.1) 08/12/22 18:16 Nucleated RBC % (auto) 0 % 08/12/22 18:16 Nucleated RBCs # 0.0 /100WBC 08/12/22 18:16 Sodium 137 mmol/L (136-145) 08/12/22 18:16 Potassium 3.7 mmol/L (3.5-5.1) 08/12/22 18:16 Chloride 99 mmol/L (98-107) 08/12/22 18:16 Carbon Dioxide 24 mmol/L (22-29) 08/12/22 18:16 Anion Gap 17.7 (5-19) 08/12/22 18:16 BUN 14 mg/dL (8-23) 08/12/22 18:16 Creatinine 1.1 mg/dL (0.7-1.2) 08/12/22 18:16 GFR Calculation Not Reportable 08/12/22 18:16 Glucose 112 mg/dL (65-115) 08/12/22 18:16 Calculated Osmolality 285 mOsm/kg (285-295) 08/12/22 18:16 Calcium 8.8 mg/dL (8.5-10.5) 08/12/22 18:16 Total Bilirubin 0.3 mg/dL (0.15-1.2) 08/12/22 18:16 AST 33 U/L (0-40) 08/12/22 18:16 ALT 56 U/L (0-41) H 08/12/22 18:16 Alkaline Phosphatase 87 U/L (40-130) 08/12/22 18:16 NT-Pro-B Natriuret Pep 652 pg/mL (0-450) H 08/12/22 18:16 Total Protein 7.2 g/dL (6.6-8.7) 08/12/22 18:16 Albumin 3.8 g/dL (3.5-5.2) 08/12/22 18:16 Globulin 3.4 g/dL (1.3-4.6) 08/12/22 18:16 Discharge Plan Discharge Patient Disposition: Home Clinical Impression: Upper respiratory tract infection, History of open heart surgery, Anterior chest wall pain Condition: Stable Prescriptions: New codeine-guaifenesin 10-200 mg/5 mL liquid See Rx Instructions .ROUTE .COMPLEX PRN (Reason: cough) Qty: 473 0RF Rx Instructions: 5-10 mls every 6 hours as needed for cough No Action aspirin [Aspir-81] 81 mg tablet,delayed release (DR/EC) 81 mg PO DAILY metformin 1,000 mg tablet 500 mg PO BID Patient Comments: patient states he is no longer taking but has not told his doctor yet nitroglycerin 0.4 mg tablet, sublingual 0.4 mg SUBLINGUAL Q5M PRN (Reason: Chest Pain) Rx Instructions: do not exceed 3 doses per episode omeprazole 20 mg capsule,delayed release(DR/EC) 20 mg PO DAILY metoprolol tartrate 100 mg tablet 100 mg PO BID allopurinol 100 mg tablet 100 mg PO DAILY donepezil 10 mg tablet 5 mg PO DAILY Patient Comments: Patient states he is no longer taking as he did not like how it made him feel. Takes prevagen over the counter instead. telmisartan 80 mg tablet 80 mg PO DAILY potassium chloride 10 mEq capsule, extended release 10 meq PO DAILY Qty: 90 3RF hydrochlorothiazide 50 mg tablet 50 mg PO DAILY Qty: 90 3RF naproxen 500 mg tablet 500 mg PO BID PRN (Reason: pain) Qty: 20 0RF Discharge Orders: Discharge ED (Routine); Ordered 08/12/22 Ordered By: Valeriy Lopez Referrals: Brissa Garland MD [Primary Care Provider] - 1-3 days (For further assessment and management of your cough) Discharge Diet: Cardiac Discharge Activity: Increase activity as tolerated Patient Instructions: How to Use an Incentive Spirometer (ED), Cold Symptoms (ED), Acute Cough (ED), Opioid Safety, Pain Management Activity Restrictions/Additional Instructions: Please further follow-up with primary care doctor in 2 to 3 days for further assessment management, take medication as prescribed please use the incentive spirometer every 2-3 hours for about 10 minutes is reduce likelihood of additional pneumonia and bronchitis please return the interim if any of her symptoms persist or worse. Coding Level of Care Code ED Cable Weaver for Bautista Mendoza
== END 2022-08-12 19:41 | disposition home or self-care (01) ==
PROVIDERS: Emergency Provider Emergency Medicine; PCP Family Medicine
DX: J06.9 Acute upper respiratory infection, unspecified (principal); R07.89 Other chest pain; I25.10 Atherosclerotic heart disease of native coronary artery without angina pectoris
CPT/HCPCS: 36415; 71046; 80053; 83880; 85025; 93005; 96361; 96374; 99285; J3010; J7030

== ENCOUNTER 2022-09-20 12:59 | Outpatient (RCR) | payer OTHER, SELFPAY | END 2022-10-14 23:59 | disposition home or self-care (01) | LOC: CR 12:59 | PROVIDERS: PCP Family Medicine; Referring Provider Family Medicine; Visit Provider Family Medicine | DX: Z95.1 Presence of aortocoronary bypass graft (principal) | CPT/HCPCS: 93798 ==

== ENCOUNTER 2022-09-25 09:23 | Emergency (ER) | payer OTHER, SELFPAY ==
[2022-09-25 09:35] VITALS: BP 162/101; PULSE 65; RESP 16; TEMP 36.6; O2SAT 96; BMI 31.9
--- NOTE | 2022-09-25 09:39 | W.ED.GENADLT ---
HPI - General Adult General: Chief complaint: General Medical Stated complaint: high blood pressure Time Seen by Provider: 09/25/22 09:29 Source: patient and family Mode of arrival: ambulatory Limitations: no limitations History of Present Illness: Patient is here today in the emergency department because he is concerned about his blood pressure. He states that his steadily been going up over the past couple of weeks. 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 He states over the past several days it is gone as high as 190+/105 to 106 at home as well as at cardiac rehab. He states he gets a mild headache when it gets as high. He denies any chest pain or shortness of breath. He has coronary disease and had a three-vessel bypass done approximately 9 weeks ago and has been recovering well from that procedure. Prior to his bypass he was on triple therapy for his hypertension with clonidine as a as needed prescription. He denies any fevers chills illness etc. He does take Naprosyn on occasion but states he does not take it every day. Associated symptoms: Deny chest pain, confusion, dyspnea, nausea, rash, palpitations, syncope or vomiting Review of Systems Const: Denies: fever(s) or chills Eyes: Denies: change in vision ENMT: Denies: odynophagia, nasal discharge, nasal congestion or nasal obstruction Card: Denies: chest pain, palpitations, irregular heart rhythm, edema, syncope or pre-syncope Resp: Denies: dyspnea, productive cough, non-productive cough or wheezing GI: Denies: abdominal pain, nausea, vomiting or diarrhea : Denies: flank pain, difficulty urinating or dysuria Musc: Denies: neck pain, back pain, extremity pain or extremity swelling Skin/Breast: Denies: rash Neuro: Denies: weakness in extremities, dizziness or confusion Psych: Denies: anxiety Ben/Lymph: Denies: easy bruising or easy bleeding PFS ED PFSH: Medical History Aortic root dilatation CAD (coronary artery disease) Diabetes mellitus, type II with nephropathy and neuropathy GERD (gastroesophageal reflux disease) Gout Hearing loss History of cardiovascular stress test 12/2018 Exercise Sestamibi: normal myocardial imaging, normal EKG response to treadmill, METs max 10.2 History of Holter monitoring 01/2021 sinus vj to sinus tachycardia (54-128, average 71), 1st degree AVB, PVC burden 1.72%, PSVC burden 0.01% History of TIA (transient ischemic attack) Hyperlipidemia Hypertension Obstruction of cystic duct Osteoarthritis Thoracic ascending aortic aneurysm Surgical History History of cardiac catheterization 07/23/2022 mid LAD, distal RCA, OM 1 lesions Hx of appendectomy S/P tonsillectomy and adenoidectomy Status post colonoscopy Status post laparoscopic cholecystectomy (01/25/21) Family History Other CAD (coronary artery disease) Social History Smoking and tobacco status: never smoked Alcohol intake: current Alcohol intake frequency: holidays/special occasions only Substance/Drug Use: never Physical Exam Narrative: EXAM NARRATIVE: He is very comfortable and cooperative appears to be in no acute distress. Answers questions in a goal-directed fashion. Const: COMMON NORMALS: no acute distress, average body habitus and patient oriented x3 GENERAL APPEARANCE: cooperative and comfortable ORIENTATION/CONSCIOUSNESS: Yes awake HENMT: COMMON NORMALS: normocephalic, Normal nasal mucous membranes and turbinates present, moist oral mucous membranes and oropharynx normal HEAD & SCALP: normocephalic NOSE: Normal nasal mucous membranes and turbinates present Eye: COMMON NORMALS: Equal, round and reactive pupils present, EOMs intact bilaterally and conjunctivae normal CONJUNCTIVA: Yes conjunctivae normal PUPIL: Yes Equal, round and reactive pupils present Neck/C-Spine: COMMON NORMALS: full ROM, supple, no JVD and No carotid bruits Chest: Breast/axilla inspection: Yes scars (Healing midline sternotomy scar without any erythema drainage etc. Also ch) Resp: COMMON NORMALS: normal respiratory effort, No retractions and clear to auscultation bilaterally EFFORT & INSPECTION: Yes able to speak in complete sentences AUSCULTATION: clear to auscultation bilaterally Cardio: COMMON NORMALS: no JVD, regular rate, regular rhythm, No murmurs present (Cardio) and Peripheral pulses 2+ throughout RATE: regular rate RHYTHM: regular rhythm PERIPHERAL PULSES: Peripheral pulses 2+ throughout GI: COMMON NORMALS: Normal to inspection, nondistended, normoactive bowel sounds present, Soft to palpation and non-tender PALPATION: Yes Soft to palpation : COMMON NORMALS: Yes no CVA tenderness BLADDER/KIDNEY EXAM: Yes no CVA tenderness Back/Pelvis: COMMON NORMALS: no CVA tenderness, thoracic and lumbar spine normal to inspection, no thoracic nor lumbar tenderness and thoraco-lumbar ROM normal Extremity: COMMON NORMALS: normal to inspection, full ROM, capillary refill normal, no clubbing, cyanosis or edema, no calf tenderness and no pedal edema Neuro: COMMON NORMALS: patient oriented x3, moves all extremities, no focal motor deficits and no sensory deficits noted CRANIAL NERVES: Yes CN normal except as noted Course Reevaluation(s): Reevaluation #1: Remained stable. Most recent blood pressure was noted to be 145/99. Discussed current findings. We will go ahead and have him start taking oral magnesium. We will front loading with 800 mg a day for the next 5 days and then back to 400 mg daily. We will go ahead and have him restart his hydrochlorothiazide in a step fashion to see if we can achieve blood pressure control. He has a [place] appointment coming up this next week. He was advised to monitor his blood pressure and record those numbers for their review and adjustment as indicated. Time: 11:01 Vital Signs: Vital signs: Vital Signs Temperature 97.9 F 09/25/22 09:35 Pulse Rate 65 09/25/22 09:35 Respiratory Rate 16 09/25/22 09:35 Blood Pressure 162/101 09/25/22 09:35 Pulse Oximetry 96 09/25/22 09:35 Oxygen Delivery Me thod Room Air 09/25/22 09:35 MDM - General Adult Medical Decision Making Patient with a known history of chronic hypertension requiring 3 drugs in the past in the interim had his medications stopped as he had a three-vessel bypass done approximately 9 weeks ago. Most recently over the past weeks or so he has had elevation in blood pressure. His Micardis was begun last week but his pressures still have trended up and therefore he is in the emergency department. He denies any concomitant endorgan symptoms related to his blood pressure elevations. Screening EKG and laboratories were notable for a low magnesium which is probably a incidental finding but we will have him start repleting his magnesium. We will also go ahead and add his hydrochlorothiazide back in the emergency department and have him follow-up with the [place] for additional adjustment as indicated. Currently clinically stable without any evidence of endorgan damage at this time. We discussed return precautions and he was appreciative of care. Lab Data I reviewed the patient's lab results. 09/25/22 10:13 Laboratory Results Sodium 135 mmol/L (136-145) L 09/25/22 10:13 Potassium 3.7 mmol/L (3.5-5.1) 09/25/22 10:13 Chloride 99 mmol/L (98-107) 09/25/22 10:13 Carbon Dioxide 22 mmol/L (22-29) 09/25/22 10:13 Anion Gap 17.7 (5-19) 09/25/22 10:13 BUN 14 mg/dL (8-23) 09/25/22 10:13 Creatinine 0.8 mg/dL (0.7-1.2) 09/25/22 10:13 GFR Calculation Not Reportable 09/25/22 10:13 Glucose 141 mg/dL (65-115) H 09/25/22 10:13 Calculated Osmolality 283 mOsm/kg (285-295) L 09/25/22 10:13 Calcium 9.1 mg/dL (8.5-10.5) 09/25/22 10:13 Magnesium 1.5 mg/dL (1.7-2.3) L 09/25/22 10:13 EKG Data EKG 1: I personally reviewed and interpreted this EKG as follows: Interpretation: Contemporaneous review of resting EKG reveals a ventricular rate of 63 bpm. Prolonged CA interval. QRS duration is normal. Corrected QT intervals normal. Borderline leftward axis.No acute ST-T wave changes noted. No significant change from prior tracings within the system. No Discharge Plan Discharge Patient Disposition: Home Clinical Impression: Hypertension, Hypomagnesemia Condition: Stable Prescriptions: Continued hydrochlorothiazide 50 mg tablet 50 mg PO DAILY Qty: 90 3RF Rx Instructions: MEDICATION ON HOLD PER PTS 09/25/22 No Action metformin 1,000 mg tablet 500 mg PO BID nitroglycerin 0.4 mg tablet, sublingual 0.4 mg SUBLINGUAL Q5M PRN (Reason: Chest Pain) Rx Instructions: do not exceed 3 doses per episode omeprazole 20 mg capsule,delayed release(DR/EC) 20 mg PO QAM metoprolol tartrate 100 mg tablet 100 mg PO BID telmisartan 80 mg tablet 80 mg PO DAILY multivitamin Tablet 1 tab PO QAM Lipitor 40 mg Tablet 40 mg PO BEDTIME hydralazine 25 mg Tablet 25 mg PO TID Rx Instructions: MEDICATION ON HOLD PER PTS 09/25/22 Aspir-81 81 mg Tablet,Delayed Release (Dr/Ec) 81 mg PO QPM allopurinol 300 mg Tablet 300 mg PO BEDTIME Ventolin HFA 90 mcg/actuation Hfa Aerosol Inhaler 2 puff INHALATION Q4H PRN (Reason: Shortness Of Breath) potassium chloride 20 mEq tablet extended release 20 meq PO QPM Prevagen 1 cap PO BEDTIME codeine-guaifenesin 10-200 mg/5 mL liquid 5 - 10 ml PO Q6H PRN (Reason: Cough) naproxen 500 mg tablet 500 mg PO BID PRN (Reason: pain) Qty: 20 0RF Discharge Orders: Discharge ED (Routine); Ordered 09/25/22 Ordered By: Tawanda Amin Referrals: Brissa Garland MD [Primary Care Provider] - Discharge Diet: Usual diet and Low Salt Discharge Activity: Increase activity as tolerated Patient Instructions: Opioid Safety, Pain Management Activity Restrictions/Additional Instructions: As we discussed your magnesium was found to be low in the emergency department. Purchase [id number] magnesium at local pharmacy that contains 400 mg of magnesium per pill. For the next 5 days take 2 of those pills daily and then continue the magnesium 400 mg or 1 pill daily. We also recommend restarting your hydrochlorothiazide in the same dose that you were taking before your surgery. [facility] with [facility] this coming week as scheduled. If you develop any concerning symptoms or uncontrolled blood pressures prior to your [facility] appointment you are welcome to return to the emergency department for reevaluation. Coding Level of Care Code ED Assistant Project Manager for Bautista Mendoza
--- NOTE | 2022-09-25 09:50 | ECG_ITS ---
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 Measurements Intervals [place] Rate: 63 P: 36 [place]: 239 QRS: -40 QRSD: 91 T: -53 QT: 406 QTc: 418 Interpretive Statements SINUS RHYTHM WITH FIRST DEGREE AV BLOCK INFERIOR MYOCARDIAL INFARCTION , OF INDETERMINATE AGE [40+ ms Q WAVE AND/OR ST/T ABNORMALITY IN II/aVF] Compared to ECG 08/12/2022 18:10:19 No significant changes Electronically Signed On 09-26-2022 11:11:25 CDT by Ninfa Kasper M.D. [id number] f
--- NOTE | 2022-09-25 10:14 | PC.NURSE ---
PT PLACED ON CONTINUOUS SPO2, NIBP, AND CM.
[2022-09-25 10:36] LABS: Anion Gap 17.7 (5-19); Blood Urea Nitrogen 14 mg/dL (8-23); Calcium 9.1 mg/dL (8.5-10.5); Carbon Dioxide 22 mmol/L (22-29); Chloride 99 mmol/L (98-107); Glucose 141 mg/dL (65-115); Magnesium 1.5 mg/dL (1.7-2.3); Osmolality Calculated 283 mOsm/kg (285-295); Potassium 3.7 mmol/L (3.5-5.1); Sodium 135 mmol/L (136-145)
--- NOTE | 2022-09-25 10:52 | PC.PHAR ---
PT AND PTS VERIFIED MEDICATIONS-PTS STATES THE PT JUST RESTARTED TAKING TELMISARTAN 80MG DAILY STATES MED WAS ON HOLD BUT RESTARTED 2 DAYS AGO-PTS STATES THE PUT HYDRALAZINE 25MG TID AND HCTZ 50MG DAILY ON HOLD-WAITING FOR [facility] TO FA[facility] LIST-PTS STATES THE DR ARCOSD AMIODARONE ON 08/18/22-PTS STATES THE PT HAS AN APPOINTMENT ON MONDAY
[2022-09-25 11:27] VITALS: BP 147/97; PULSE 63; RESP 16; O2SAT 95
== END 2022-09-25 11:29 | disposition home or self-care (01) ==
PROVIDERS: Emergency Provider Emergency Medicine; PCP Family Medicine
DX: I10 Essential (primary) hypertension (principal); E83.42 Hypomagnesemia; Z95.5 Presence of coronary angioplasty implant and graft
CPT/HCPCS: 80048; 83735; 93005; 99284

== ENCOUNTER → 2022-09-28 14:29 | Outpatient (BNVA) | payer OTHER, SELFPAY | PROVIDERS: PCP Family Medicine; Visit Provider Nurse Practitioner Family | DX: I25.10 Atherosclerotic heart disease of native coronary artery without angina pectoris (principal); I10 Essential (primary) hypertension; Z95.1 Presence of aortocoronary bypass graft; Z79.82 Long term (current) use of aspirin | CPT/HCPCS: 99214 ==

== ENCOUNTER → 2022-10-06 10:32 | Outpatient (BNVA) | payer OTHER, SELFPAY | PROVIDERS: PCP Family Medicine; Visit Provider Nurse Practitioner Family | DX: I10 Essential (primary) hypertension (principal); I25.10 Atherosclerotic heart disease of native coronary artery without angina pectoris | CPT/HCPCS: 99214 ==

== ENCOUNTER 2022-10-17 13:57 | Outpatient (RCR) | payer OTHER, SELFPAY | END 2022-11-14 23:59 | disposition home or self-care (01) | LOC: CR 13:57 | PROVIDERS: PCP Family Medicine; Referring Provider Family Medicine; Visit Provider Family Medicine | DX: Z95.1 Presence of aortocoronary bypass graft (principal) | CPT/HCPCS: 93798 ==

== ENCOUNTER → 2022-11-09 14:51 | Outpatient (BNVA) | payer OTHER, SELFPAY | PROVIDERS: PCP Family Medicine; Visit Provider Internal Medicine Cardiovascular Disease | DX: I25.10 Atherosclerotic heart disease of native coronary artery without angina pectoris (principal); I10 Essential (primary) hypertension; E78.5 Hyperlipidemia, unspecified; I77.810 Thoracic aortic ectasia; Z95.1 Presence of aortocoronary bypass graft | CPT/HCPCS: 99214 ==

== ENCOUNTER 2022-11-14 09:22 | Outpatient (CLI) | payer OTHER, SELFPAY ==
[2022-11-14 10:36] LABS: Alanine Aminotransferase 34 U/L (0-41); Albumin Level 4.3 g/dL (3.5-5.2); Alkaline Phosphatase 64 U/L (40-130); Anion Gap 18.5 (5-19); Aspartate Amino Transferase 28 U/L (0-40); Blood Urea Nitrogen 16 mg/dL (8-23); Calcium 9.4 mg/dL (8.5-10.5); Carbon Dioxide 24 mmol/L (22-29); Chloride 99 mmol/L (98-107); Chol HDL Ratio 3.71 mg/dL (1.0-5.00); Cholesterol 141 mg/dL (0-200); Globulin 2.7 g/dL (1.3-4.6); Glucose 136 mg/dL (65-115); HDL Cholesterol 38 mg/dL (60-100); LDL Cholesterol Calculated 59 mg/dL (50-129); LDL Cholesterol Direct 73 mg/dL (0-100); LDL HDL Ratio 1.55 RATIO (0.00-3.22); Osmolality Calculated 287 mOsm/kg (285-295); Potassium 4.5 mmol/L (3.5-5.1); Sodium 137 mmol/L (136-145); Total Bilirubin 0.6 mg/dL (0.15-1.2); Triglycerides 222 mg/dL (0-150)
== END 2022-11-14 09:23 | disposition home or self-care (01) ==
PROVIDERS: PCP Family Medicine; Visit Provider Internal Medicine Cardiovascular Disease
DX: E78.5 Hyperlipidemia, unspecified (principal); I10 Essential (primary) hypertension; I25.10 Atherosclerotic heart disease of native coronary artery without angina pectoris
CPT/HCPCS: 36415; 80053; 80061; 83721

== ENCOUNTER → 2023-04-24 08:20 | Outpatient (BNVA) | payer OTHER, SELFPAY | PROVIDERS: PCP Family Medicine; Visit Provider Nurse Practitioner Family | DX: I10 Essential (primary) hypertension (principal); I25.10 Atherosclerotic heart disease of native coronary artery without angina pectoris | CPT/HCPCS: 99214 ==

== ENCOUNTER 2023-05-04 09:23 | Outpatient (RCR) | payer OTHER, SELFPAY | END 2023-05-17 23:59 | disposition home or self-care (01) | LOC: SPT 09:23 | PROVIDERS: PCP Family Medicine; Visit Provider Family Medicine | DX: M54.16 Radiculopathy, lumbar region (principal) | CPT/HCPCS: 97110; 97161 ==

== ENCOUNTER 2023-05-18 06:00 | Outpatient (RCR) | payer OTHER, SELFPAY | END 2023-06-15 23:59 | disposition home or self-care (01) | LOC: SPT 06:00 | PROVIDERS: PCP Family Medicine; Visit Provider Family Medicine | DX: M54.16 Radiculopathy, lumbar region (principal) | CPT/HCPCS: 97110 ==

== ENCOUNTER 2023-06-16 06:00 | Outpatient (RCR) | payer OTHER, SELFPAY | END 2023-07-16 23:59 | disposition home or self-care (01) | LOC: SPT 06:00 | PROVIDERS: PCP Family Medicine; Visit Provider Family Medicine | DX: M54.16 Radiculopathy, lumbar region (principal) | CPT/HCPCS: 97110 ==

== ENCOUNTER 2024-06-11 20:00 | Outpatient (CLI) | payer OTHER, SELFPAY | END 2024-06-11 20:01 | disposition home or self-care (01) | LOC: SLEEP 22:46 | PROVIDERS: PCP Family Medicine; Visit Provider Family Medicine | DX: G47.39 Other sleep apnea (principal) | CPT/HCPCS: 95810 ==

== ENCOUNTER 2024-09-16 11:19 | Emergency (ER) | payer OTHER, MEDICARE, SELFPAY ==
[2024-09-16] VITALS (26 sets, daily range): BP systolic 132–182; BP diastolic 81–102; PULSE 60–76; RESP 15–26; TEMP 36.7; O2SAT 93–98; BMI 32.4
--- NOTE | 2024-09-16 11:50 | CT_ITS ---
WS: [id number] CT HEAD TECHNIQUE: Noncontrast CT of the head obtained from the skullbase to the vertex. CLINICAL INFORMATION: dizziness COMPARISON: 2018 DLP: 1095.[address] scans at [facility] use at least one of these dose optimization techniques: automated exposure control; mA and/or kV adjustment per patient size (includes targeted exams where dose is matched to clinical indication); or iterative reconstruction. FINDINGS: No evidence of intracranial hemorrhage or mass effect. Ventricular system and basal cisterns are patent. Mild small vessel changes with moderate parenchymal volume loss. No extra-axial fluid collections. No evidence of mass or mass effect. Vascular calcification Paranasal sinuses and mastoid air cells are well aerated. .Normal visualized soft tissues. CT/CT head wo con* [id number] IMPRESSION: 1. No evidence of intracranial hemorrhage or mass effect. 2. No acute intracranial findings.
--- NOTE | 2024-09-16 11:50 | XR_ITS ---
WS: [id number] XR chest 1V portable [id number] REASON FOR EXAM: dizzy FINDINGS: There are sternal sutures and presumed previous coronary artery bypass surgery. Moderate tortuosity and ectasia of the thoracic aorta with normal heart size. Calcified granulomatous disease bilaterally. There is no opacity in the left lower hemithorax contiguous with the diaphragm which appears to be an area of atelectasis. Otherwise, no acute or subacute abnormality of the pulmonary parenchyma or pleural is identified in the remainder of the chest is unchanged compared to 08/12/2022. Moderate degenerative spondylosis in the thoracic spine. XR/XR chest 1V portable [id number] IMPRESSION: Presumed small area of atelectasis in the left lower lung with no other acute o r subacute cardiopulmonary abnormality.
--- NOTE | 2024-09-16 11:59 | ECG_ITS ---
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 Measurements Intervals [place] Rate: 62 P: 30 WA: 245 QRS: -17 QRSD: 134 T: 63 QT: 423 QTc: 432 Interpretive Statements SINUS RHYTHM WITH FIRST DEGREE AV BLOCK RIGHT BUNDLE BRANCH BLOCK [120+ ms QRS DURATION, UPRIGHT V1, 40+ ms S IN I/aVL/V4/V5/V6] Compared to ECG 09/25/2022 09:50:12 Right bundle-branch block now present Myocardial infarct finding no longer present Electronically Signed On 09-17-2024 11:37:08 CDT by Thom Matta M.D. [email or web address] [id number]
--- NOTE | 2024-09-16 12:04 | W.ED.DIZZY ---
HPI - Dizziness General: Chief Complaint: Dizziness Stated Complaint: va sent, high bp, dizzy, double vision Time Seen by Provider: 09/16/24 11:47 Source: patient Mode of arrival: ambulatory Limitations: no limitations History of Present Illness: HPI Narrative: 78-year-old male states the last 3 days he has been having some slight lightheadedness states he had some diarrhea. He states diarrhea ended yesterday he is felt improved today. Has had some mild headaches and nausea has had some hypertension as well. He denies any chest pain he has no difficulty ambulating denies any slurred speech Associated symptoms: Reports headache(s) and nausea; Denies chest pain, chills or vomiting Related Data Home Medications ?Medication ?Instructions ?Recorded ?Confirmed telmisartan 80 mg tablet 80 mg PO DAILY 10/12/20 09/16/24 Prevagen 1 cap PO BEDTIME 09/25/22 09/16/24 allopurinol 300 mg tablet 300 mg PO BEDTIME 09/25/22 09/16/24 aspirin 81 mg tablet,delayed 81 mg PO QPM 09/25/22 09/16/24 release atorvastatin 40 mg tablet (Lipitor) 40 mg PO BEDTIME 09/25/22 09/16/24 multivitamin 1 tab PO QAM 09/25/22 09/16/24 potassium chloride 20 mEq 20 meq PO QPM 09/25/22 09/16/24 tablet,extended release metformin 1,000 mg tablet 500 mg PO BID 11/09/22 09/16/24 carvedilol 25 mg tablet 25 mg PO BID 09/16/24 09/16/24 donepezil 10 mg tablet 10 mg PO DAILY 09/16/24 09/16/24 glimepiride 2 mg tablet 1 mg PO QAM 09/16/24 09/16/24 hydrochlorothiazide 25 mg tablet 12.5 mg PO QAM 09/16/24 09/16/24 magnesium citrate 100 mg tablet 100 mg PO .DAILY DIRECTED 09/16/24 09/16/24 omeprazole 40 mg capsule,delayed 4,800 mg PO DAILY 09/16/24 09/16/24 release Allergies Allergy/AdvReac Type Severity Reaction Status Date / Time gabapentin Allergy Unknown Verified 09/16/24 11:26 lisinopril Allergy Unknown Verified 09/16/24 11:26 Review of Systems Const: Denies: fever(s), chills, body aches or change in appetite ENMT: Denies: throat pain or dental pain Card: Denies: chest pain Resp: Denies: dyspnea GI: Reports: nausea; Denies: abdominal pain, vomiting or diarrhea Musc: Denies: neck pain or back pain Skin/Breast: Denies: rash Neuro: Reports: headache(s) PFS ED PFSH: Medical History (Updated 09/16/24 @ 14:04 by Maulik Saleh MD) CAD (coronary artery disease) History of cardiovascular stress test 12/2018 Exercise Sestamibi: normal myocardial imaging, normal EKG response to treadmill, METs max 10.2 History of Holter monitoring 01/2021 sinus vj to sinus tachycardia (54-128, average 71), 1st degree AVB, PVC burden 1.72%, PSVC burden 0.01% Hearing loss Gout Osteoarthritis Diabetes mellitus, type II with nephropathy and neuropathy History of TIA (transient ischemic attack) Obstruction of cystic duct Aortic root dilatation Thoracic ascending aortic aneurysm GERD (gastroesophageal reflux disease) Hyperlipidemia Hypertension Surgical History History of cardiac catheterization 07/23/2022 mid LAD, distal RCA, OM 1 lesions Status post laparoscopic cholecystectomy (01/25/21) Status post colonoscopy Hx of appendectomy S/P tonsillectomy and adenoidectomy Family History Other CAD (coronary artery disease) Social History Smoking and tobacco/nicotine status: never used tobacco/nicotine Alcohol intake: current Alcohol intake frequency: holidays/special occasions only Substance/Drug Use: never Physical Exam Const: COMMON NORMALS: no acute distress, patient oriented x3 and healthy appearing HENMT: COMMON NORMALS: normocephalic and atraumatic HEAD & SCALP: normocephalic and atraumatic Eye: COMMON NORMALS: Equal, round and reactive pupils present and EOMs intact bilaterally PUPIL: Yes Equal, round and reactive pupils present OTHER: no nystagmus Neck/C-Spine: COMMON NORMALS: full ROM and supple Chest: COMMONS NORMALS: normal inspection of the chest and normal palpation of entire chest wall Resp: COMMON NORMALS: normal respiratory effort, No retractions, No use of accessory muscles and clear to auscultation bilaterally AUSCULTATION: clear to auscultation bilaterally Cardio: COMMON NORMALS: regular rate, regular rhythm and No murmurs present (Cardio) RATE: regular rate RHYTHM: regular rhythm Extremity: COMMON NORMALS: normal to inspection and full ROM Neuro: COMMON NORMALS: patient oriented x3, moves all extremities and no focal motor deficits CRANIAL NERVES: Yes CN normal except as noted SPEECH: speech normal GAIT: Yes Normal gait present MOTOR EXAM: 5/5 motor strength present throughout Psych: COMMON NORMALS: mental status grossly normal, Normal thought process present and cooperative THOUGHT PROCESS: Normal thought process present Skin: COMMON NORMALS: no rashes or lesions noted and no wounds GENERAL SKIN EXAM: no rashes or lesions noted Course Vital Signs: Vital signs: Vital Signs Temperature 98.1 F 09/16/24 11:23 Pulse Rate 61 09/16/24 13:50 Respiratory Rate 20 H 09/16/24 13:50 Blood Pressure 182/98 09/16/24 13:50 Pulse Oximetry 94 09/16/24 13:50 Oxygen Delivery Me thod Room Air 09/16/24 11:23 MDM - Dizziness Medical Decision Making Patient presents here with hypertension some intermittent dizziness he is not dizzy here ambulates here normal no signs of a stroke blood work head CT are normal here he is wanting go home I informed him he needs to keep a log of his blood pressure follow back up with his PCP and return if worsening. Medical Records I reviewed the patient's medical records. Lab Data I reviewed the patient's lab results. 09/16/24 12:06 09/16/24 13:32 Radiology Impressions Chest X-Ray 09/16/24 11:50 IMPRESSION: Presumed small area of atelectasis in the left lower lung with no other acute or subacute cardiopulmonary abnormality. Head CT 09/16/24 11:50 IMPRESSION: 1. No evidence of intracranial hemorrhage or mass effect. 2. No acute intracranial findings. Laboratory Results WBC 5.71 10^3/uL (3.29-11.43) 09/16/24 12:06 RBC 5.09 10^6/uL (3.85-5.65) 09/16/24 12:06 Hgb 13.60 g/dL (11.27-16.99) 09/16/24 12:06 Hct 42.9 % (37-53) 09/16/24 12:06 MCV 84.3 fl (82-101) 09/16/24 12:06 MCH 26.7 pg (27-33) L 09/16/24 12:06 MCHC 31.7 g/dL (30-55) 09/16/24 12:06 RDW 15.9 % (12.1-15.1) H 09/16/24 12:06 Plt Count 229 10^3/cmm (157-399) 09/16/24 12:06 MPV 11.7 fL (7.4-10.4) H 09/16/24 12:06 Neut % (Auto) 54.1 % 09/16/24 12:06 Lymph % (Auto) 27.0 % 09/16/24 12:06 [place] % (Auto) 14.0 % 09/16/24 12:06 Eos % (Auto) 4.0 % 09/16/24 12:06 Baso % (Auto) 0.5 % 09/16/24 12:06 Neut # (Auto) 3.09 10^3/uL (1.8-7.7) 09/16/24 12:06 Lymph # (Auto) 1.5 10^3/uL (0.8-4.8) 09/16/24 12:06 [place] # (Auto) 0.8 10^3/uL (0.2-0.9) 09/16/24 12:06 Eos # (Auto) 0.2 10^3/uL (0.0-0.8) 09/16/24 12:06 Baso # (Auto) 0.0 10^3/uL (0.0-0.1) 09/16/24 12:06 Nucleated RBC % (auto) 0 % 09/16/24 12:06 Nucleated RBCs # 0.0 /100WBC 09/16/24 12:06 PT 12.40 SECONDS (12.1-14.9) 09/16/24 13:32 INR 0.86 (0.8-1.2) 09/16/24 13:32 Sodium 139 mmol/L (136-145) 09/16/24 13:32 Potassium 4.4 mmol/L (3.5-5.1) 09/16/24 13:32 Chloride 101 mmol/L (98-107) 09/16/24 13:32 Carbon Dioxide 25 mmol/L (22-29) 09/16/24 13:32 Anion Gap 17.4 (5-19) 09/16/24 13:32 BUN 12 mg/dL (8-23) 09/16/24 13:32 Creatinine 1.0 mg/dL (0.7-1.2) 09/16/24 13:32 GFR Calculation Not Reportable 09/16/24 13:32 Glucose 99 mg/dL (65-115) 09/16/24 13:32 Calculated Osmolality 288 mOsm/kg (285-295) 09/16/24 13:32 Calcium 8.9 mg/dL (8.5-10.5) 09/16/24 13:32 Total Bilirubin 0.5 mg/dL (0.15-1.2) 09/16/24 13:32 AST 28 U/L (0-40) 09/16/24 13:32 ALT 34 U/L (0-41) 09/16/24 13:32 Alkaline Phosphatase 66 U/L (40-130) 09/16/24 13:32 Total Protein 7.1 g/dL (6.6-8.7) 09/16/24 13:32 Albumin 4.1 g/dL (3.5-5.2) 09/16/24 13:32 Globulin 3.0 g/dL (1.3-4.6) 09/16/24 13:32 Urine Color Yellow (Yellow) 09/16/24 12:48 Urine Appearance Clear (CLEAR) 09/16/24 12:48 Urine pH 6.5 (5-7) 09/16/24 12:48 Ur Specific [place] 1.014 (1.005-1.030) 09/16/24 12:48 Urine Protein Negative (Negative) 09/16/24 12:48 Urine Glucose (UA) Negative (Normal) 09/16/24 12:48 Urine Ketones Negative (Negative) 09/16/24 12:48 Urine Blood Negative (Negative) 09/16/24 12:48 Urine Nitrate Negative (Negative) 09/16/24 12:48 Urine Bilirubin Negative (Negative) 09/16/24 12:48 Urine Urobilinogen 0.2 mg/dL (Negative) 09/16/24 12:48 Ur Leukocyte Esterase Negative (Negative) 09/16/24 12:48 Urine RBC 0-2 /hpf (0-2) 09/16/24 12:48 Urine WBC 0-5 /hpf (0-5) 09/16/24 12:48 Ur Squamous Epith Cells 0-5 /hpf (0-5) 09/16/24 12:48 Amorphous Sediment Not Reportable 09/16/24 12:48 Urine Bacteria None seen /hpf (NONE) 09/16/24 12:48 Hyaline Casts 0-4 /lpf H 09/16/24 12:48 All radiology interpretation(s) finalized by discharge EKG Data EKG 1: I personally reviewed and interpreted this EKG as follows: EKG interpretation date: 09/16/24 EKG interpretation time: 11:59 Interpretation: nsr hr [address] elevation qrs 134 qtc 429 Discharge Plan Discharge Patient Disposition: Home Clinical Impression: Dizziness Hypertension Qualifiers: Hypertension type: primary hypertension Qualified Code(s): I10 - Essential (primary) hypertension Condition: Stable Prescriptions: No Action metformin 1,000 mg tablet 500 mg PO BID telmisartan 80 mg tablet 80 mg PO DAILY multivitamin Tablet 1 tab PO QAM atorvastatin [Lipitor] 40 mg Tablet 40 mg PO BEDTIME aspirin [Aspir-81] 81 mg Tablet,Delayed Release (Dr/Ec) 81 mg PO QPM allopurinol 300 mg Tablet 300 mg PO BEDTIME potassium chloride 20 mEq tablet extended release 20 meq PO QPM Prevagen 1 cap PO BEDTIME carvedilol 25 mg tablet 25 mg PO BID donepezil 10 mg Tablet 10 mg PO DAILY omeprazole 40 mg Capsule,Delayed Release(Dr/Ec) 4,800 mg PO DAILY glimepiride 2 mg Tablet 1 mg PO QAM Rx Instructions: administer with breakfast hydrochlorothiazide 25 mg Tablet 12.5 mg PO QAM magnesium citrate 100 mg Tablet 100 mg PO .DAILY DIRECTED Discharge Orders: Discharge ED (Routine); Ordered 09/16/24 Ordered By: Maulik Saleh Referrals: Brissa Garland MD [Primary Care Provider, Family Practice] - 4-7 days Discharge Diet: Advance as tolerated Discharge Activity: Resume usual activity Patient Instructions: Hypertension (ED), Dizziness (ED) Print Language: Kazakh Coding Level of Care Code ED Sea Air Land Officer for Chg Fwd
[2024-09-16 12:15] LABS: Basophils % 0.5 %; Eosinophils # 0.2 10^3/uL (0.0-0.8); Hematocrit 42.9 % (37-53); Lymphocytes # 1.5 10^3/uL (0.8-4.8); Mean Corpuscular HGB Conc 31.7 g/dL (30-55); Mean Corpuscular Hemoglobin 26.7 pg (27-33); Mean Corpuscular Volume 84.3 fl (82-101); Mean Platelet Volume 11.7 fL (7.4-10.4); Monocytes # 0.8 10^3/uL (0.2-0.9); Neutrophils # 3.09 10^3/uL (1.8-7.7); Neutrophils % 54.1 %; Nucleated Red Blood Cells % 0 %; Platelet Count 229 10^3/cmm (157-399); Red Blood Count 5.09 10^6/uL (3.85-5.65); Red Cell Distribution Width 15.9 % (12.1-15.1); White Blood Count 5.71 10^3/uL (3.29-11.43)
[2024-09-16 12:48] LABS: Slide Review Slide Review Perform
[2024-09-16 13:12] LABS: Bilirubin Urine Negative (Negative); Blood Urine Negative (Negative); Glucose Urine UA Negative (Normal); Ketones Urine Negative (Negative); Leukocyte Esterase Urine Negative (Negative); Nitrate Urine Negative (Negative); Protein Urine Negative (Negative); Specific Gravity, Urine 1.014 (1.005-1.030); Urine Appearance Clear (CLEAR); Urine Color Yellow (Yellow); Urobilinogen Urine 0.2 mg/dL (Negative); pH Urine 6.5 (5-7)
[2024-09-16 13:14] LABS: Add Urine Microscopic? YES; Bacteria Urine None Seen /hpf; Hyaline Casts Urine 0-4 /lpf; RBC Urine 0-2 /hpf (0-2); Squamous Epithelial Cell Urine 0-5 /hpf (0-5); WBC Urine 0-5 /hpf (0-5)
--- NOTE | 2024-09-16 13:24 | PC.PHAR ---
[facility] 09/16/24 1:24pm
[2024-09-16 13:29] LABS: Add Urine Culture? No
[2024-09-16 13:55] LABS: INR 0.86 (0.8-1.2)
[2024-09-16 14:00] LABS: Alanine Aminotransferase 34 U/L (0-41); Albumin Level 4.1 g/dL (3.5-5.2); Alkaline Phosphatase 66 U/L (40-130); Anion Gap 17.4 (5-19); Aspartate Amino Transferase 28 U/L (0-40); Blood Urea Nitrogen 12 mg/dL (8-23); Calcium 8.9 mg/dL (8.5-10.5); Carbon Dioxide 25 mmol/L (22-29); Chloride 101 mmol/L (98-107); Creatinine Clr Calc Pharmacy 60.2337; Glucose 99 mg/dL (65-115); Osmolality Calculated 288 mOsm/kg (285-295); Potassium 4.4 mmol/L (3.5-5.1); Sodium 139 mmol/L (136-145); Total Bilirubin 0.5 mg/dL (0.15-1.2); Total Protein 7.1 g/dL (6.6-8.7)
== END 2024-09-16 14:20 | disposition home or self-care (01) ==
PROVIDERS: Emergency Provider Emergency Medicine; PCP Family Medicine
DX: R42 Dizziness and giddiness (principal); I10 Essential (primary) hypertension; Z79.84 Long term (current) use of oral hypoglycemic drugs; Z79.82 Long term (current) use of aspirin; E78.5 Hyperlipidemia, unspecified; I25.10 Atherosclerotic heart disease of native coronary artery without angina pectoris; E11.9 Type 2 diabetes mellitus without complications; Z86.73 Personal history of transient ischemic attack (TIA), and cerebral infarction without residual deficits
CPT/HCPCS: 36415; 70450; 71045; 80053; 81001; 85025; 85610; 93005; 99285

== ENCOUNTER 2024-12-13 16:07 | Emergency (ER) | payer OTHER, SELFPAY ==
--- NOTE | 2024-12-13 16:10 | ECG_ITS ---
[employer] Test Date: 2024-12-13 Pat Name: Heriberto Lyon Department: Room: Gender: Male Applied Psychology Teacher: : 1945 Requested By: David Horne Order Number: [id number] Dimas MD: Thom Matta M.D. Measurements Intervals [place] Rate: 68 P: 52 IN: 217 QRS: -20 QRSD: 141 T: 4 QT: 415 QTc: 443 Interpretive Statements SINUS RHYTHM WITH FIRST DEGREE AV BLOCK RIGHT BUNDLE BRANCH BLOCK [120+ ms QRS DURATION, UPRIGHT V1, 40+ ms S IN I/aVL/V4/V5/V6] INFERIOR MYOCARDIAL INFARCTION , OF INDETERMINATE AGE [40+ ms Q WAVE AND/OR ST/T ABNORMALITY IN II/aVF] MODERATE T-WAVE ABNORMALITY, CONSIDER LATERAL ISCHEMIA [-0.1+ mV T-WAVE IN I/aVL/V5/V6] Compared to ECG 09/16/2024 11:59:31 Myocardial infarct finding now present T-wave abnormality now present Possible ischemia now present Electronically Signed On 12-13-2024 22:36:29 CDT by Thom Matta M.D. [email or web address]
[2024-12-13 16:13] VITALS: BP 104/69; PULSE 71; RESP 17; TEMP 36.7; O2SAT 95; BMI 33.6
--- OUTSIDE RECORDS SUMMARY | 2024-12-13 16:13 | XMS_ITS | Encounter Summary ---
Author Organization [facility] Address [address] [place] [address] Care Team Providers Care Epoxy Fabrication Supervisor Name Role Phone HarinderIfeoma Vandana DO Primary Care Provide r Unavailable Encounter Details Date Type Department Care Team (Late st Contact Info) Description 06/10/2008 Ancillary Orders [facility] CT Scan [address] [place] [address] Raman Pendleton, DUNIA [address] [place], [place] [address] Cough Social History Tobacco Use Types Packs/Day Years Used Date Smoking Tobacco: Never Assessed Sex and Gender Information Value Date Recorded Sex Assigned at Not on file Legal Sex Male 5:54 AM LABORER HOISTING Gender Identity Not on file Sexual Orientation Not on file documented as of this encounter Plan of Treatment Not on file documented as of this encounter Results * CT SINUS SCREENING LTD (06/12/2008 9:18 AM LABORER HOISTING) Anatomical Region Laterality Modality Head Computed Tomogra phy 06/12/2008 9:10 AM LABORER HOISTING Impressions 06/12/2008 3:21 PM LABORER HOISTING Impression: Mild right frontoethmoidal sinus disease. [email or web address] [id number] - uploaded from [email or web address] 06/12/2008 3:21 PM LABORER HOISTING Direct coronal noncontrast images were obtained through the paranasal sinuses. History is cough. There is mild right frontoethmoidal sinus disease. The remaining paranasal sinuses are clear. The nasal cavity shows no significant abnormality. Procedure Note Ton Wheeler MD - 06/12/2008 Direct coronal noncontrast images were obtained through the paranasalsinuses. History is cough. There is mild right frontoethmoidal sinus disease. The remaining paranasalsinuses are clear. The nasal cavity shows no significant abnormality. IMPRESSION Impression: Mild right frontoethmoidal sinus disease. [email or web address] [id number] - uploaded from [employer] - Raman Pendleton LOAN REVIEW OFFICER CT ORDERABLES Final Result documented in this encounter Visit Diagnoses Diagnosis Cough Cough documented in this encounter Care Teams Epoxy Fabrication Supervisor Relationship Specialty Start Date End Date Ifeoma Pizano DO PCP - General Family Practice 01/17/11 03/23/16 documented as of this encounter
--- OUTSIDE RECORDS SUMMARY | 2024-12-13 16:13 | XMS_ITS | Encounter Summary ---
Author Organization [facility] Address [address] [place] [address] Care Team Providers Care Unit Tender Name Role Phone Ifeoma Pizano DO Primary Care Provide r Unavailable Encounter Details Date Type Department Care Team (Late st Contact Info) Description 05/04/2007 Outpatient Historical [facility]- [facility] [address] [place] [address] Chuy Saleem MD NO ADDRESS ON FILE Social History Tobacco Use Types Packs/Day Years Used Date Smoking Tobacco: Never Assessed Sex and Gender Information Value Date Recorded Sex Assigned at Not on file Legal Sex Male 5:54 AM 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
--- OUTSIDE RECORDS SUMMARY | 2024-12-13 16:13 | XMS_ITS | Encounter Summary ---
Author Organization [facility] Address [address] [place] [address] Care Team Providers Care Meat Manager Name Role Phone Ifeoma Pizano DO Primary Care Provide r Unavailable Encounter Details Date Type Department Care Team (Late st Contact Info) Description 06/10/2008 Ancillary Orders [facility] Imaging Services [address] [place] [address] Raman Pendleton, DUNIA [address] [place], [place] [id number] Cough Social History Tobacco Use Types Packs/Day Years Used Date Smoking Tobacco: Never Assessed Sex and Gender Information Value Date Recorded Sex Assigned at Not on file Legal Sex Male 5:54 AM ELECTRIC TRIPPER MACHINE OPERATOR Gender Identity Not on file Sexual Orientation Not on file documented as of this encounter Plan of Treatment Not on file documented as of this encounter Results * XR CHEST PA AND LATERAL (06/12/2008 9:01 AM ELECTRIC TRIPPER MACHINE OPERATOR) Anatomical Region Laterality Modality Chest Computed Radiogr aphy 06/12/2008 8:51 AM ELECTRIC TRIPPER MACHINE OPERATOR Impressions 06/12/2008 9:34 AM ELECTRIC TRIPPER MACHINE OPERATOR Impression: No active disease. Narrative 06/12/2008 9:34 AM ELECTRIC TRIPPER MACHINE OPERATOR The heart and mediastinum are normal in size and contour. The lungs are essentially clear without evidence of infiltrates, nodules, or effusions. The bones and other structures visualized are largely unremarkable. Procedure Note Pedro Burden MD - 06/12/2008 The heart and mediastinum are normal in size and contour. The lungs areessentially clear without evidence of infiltrates, nodules, or effusions. The bones and otherstructures visualized are largely unremarkable. IMPRESSION Impression: No active disease. us Raman Pendleton NP DIAGNOSTIC IMAGING ORDERABLE S Final Result documented in this encounter Visit Diagnoses Diagnosis Cough Cough documented in this encounter Care Teams Meat Manager Relationship Specialty Start Date End Date Ifeoma Pizano DO PCP - General Family Practice 01/17/11 03/23/16 documented as of this encounter
--- OUTSIDE RECORDS SUMMARY | 2024-12-13 16:14 | XMS_ITS | Clinical Summary ---
Author Organization [facility] Address [address] [place] [address] Care Team Providers Care Special Agent In Charge Name Role Phone Unavailable Primary Care Provider Unavailabl e Allergies Active Allergy Reactions Criticality Noted Date Comments Lisinopril Cough Low 01/17/2011 Medications ASPIRIN 81 mg Oral Tab Take 81 mg by mouth daily. Active mometasone-formo terol (DULERA) 100-5 mcg/actuation Inhalation inhalerIndicatio ns:Wheezing Take 2 Puffs by inhalation 2 times daily. 1 Inhaler 0 2 Active albuterol (PROVENTIL,JAY JOANNE) 90 mcg/Actuation Inhalation HFAAIndications: Dyspnea Take 2 Puffs by inhalation every 4 hours as needed for Respiration, Shortness of Breath, Wheezing or Other (See Comment) (cough). 3 Inhaler 2 2 Active omeprazole (PRILOSEC) 20 mg Oral CpDRIndications: GERD (gastroesophagea l reflux disease) Take 1 Cap by mouth daily. 90 Cap 3 2 Active atorvastatin (LIPITOR) 40 mg Oral tabletIndication s:Hyperlipemia Take 1 Tab by mouth Daily LATE. 90 Tab 3 2 Active metoprolol tartrate (LOPRESSOR) 100 mg Oral tabletIndication s:Peripheral edema,Unspecifie d essential hypertension Take 1 Tab by mouth 2 times daily. 60 Tab 0 2 Active VITAMIN B COMPLEX ORAL Take by mouth. Ac tive OMEGA-3 FATTY ACIDS (FISH OIL ORAL) Take by mouth daily. Active gabapentin (NEURONTIN) 300 mg capsule Take 300 mg by mouth 2 times daily. Active Telmisartan-Hydr ochlorothiazid (MICARDIS HCT) 80-25 mg TabletIndication s:Essential hypertension Take 1 Tablet by mouth daily MUST MAKE APPOINTMENT PRIOR TO ADDITIONAL REFILLS. 90 Tablet 0 5 Active Active Problems Problem Noted Date Diagnosed Date Shortness of breath 06/14/2012 Vitamin D deficiency 03/16/2011 Gout 03/16/2011 Monocytosis 03/16/2011 Unspecified essential hypertension Hyperlipemia GERD (gastroesophageal reflux disease) TIA (transient ischemic attack) Overview (01/18/2011): 2008 or 2009 [facility] [place] Resolved Problems Problem Noted Date Diagnosed Date Resolved Date Chronic cough 08/15/2008 06/14/2012 Immunizations Immunization Administration Dates Next Due Influenza Seasonal Unspecified Formulation IM Family History Medical History Relation Name Comments Cancer Father Colon Cancer Neg Hx Relation Name Status Comments Father Mother Social History Tobacco Use Types Packs/Day Years Used Date Smoking Tobacco: Former Cigarettes 1 12 0 04/17/1955 - 04/17/1967 Smokeless Tobacco: Former Quit: 01/17/1990 Alcohol Use Standard Drinks/Week Comments Yes 0 (1 standard drink = 0.6 oz pur e alcohol) occassional Sex and Gender Information Value Date Recorded Sex Assigned at Not on file Legal Sex Male 5:54 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 Gender Identity Not on file Sexual Orientation Not on file Last Filed Vital Signs Vital Sign Reading Time Taken Comments Blood Pressure 134/86 02/14/2014 8:36 AM CDT Pulse 79 02/14/2014 8:36 AM CDT Temperature 36.7 C (98.1 F) 02/14/2014 8:36 AM CDT Respiratory Rate 19 02/14/2014 8:36 AM CDT Oxygen Saturation 98% 02/14/2014 8:36 AM CDT Inhaled Oxygen Concentration - - Weight 94.8 kg (209 lb) 02/14/2014 8:36 AM CDT Height 165.1 cm (5' 5 ) 02/14/2014 8:36 AM CDT Body Mass Index 34.78 02/14/2014 8:36 AM CDT Plan of Treatment Health Maintenance Due Date Last Done Comments DTAP/TDAP/TD VACCINES (1 - Tdap) 11/30/1962 PNEUMOCOCCAL VACCINE 50+ YEA RS (1 of 1 - PCV) 11/30/1993 ZOSTER VACCINE (1 of 2) 11/30/1993 RSV VACCINE (60+ or ) (1 - 1-dose 75+ series) 11/30/2018 INFLUENZA VACCINE (#1) 2024 04/02/2008 COLORECTAL SCREENING Discontinued 05/12/2009 (Previously completed) Colorectal Cancer Screening Discontinued FIT-DNA Q 3 years Discontinued FIT/FOBT Q 1 year Discontinued Flex Sig/CT Colonography Q 5 years Discontinued Insurance Advance Directives For more information, please contact: [phone] * Full Code (Latest Code Status on File) Date Activated Date Inactivated Comments 07/15/2008 9:50 AM 07/16/2008 2:01 AM
--- OUTSIDE RECORDS SUMMARY | 2024-12-13 16:14 | XMS_ITS | Encounter Summary ---
Author Organization [facility] Address [address] [place] [address] Care Team Providers Care Marine Engineering Professor Name Role Phone Ifeoma Pizano DO Primary Care Provide r Unavailable Encounter Details Date Type Department Care Team (Latest Contact Info) Description 06/02/2006 Outpatient Historical [facility], Nose [facility] [place] [address] [place] [address] Royce Mccann MD NO ADDRESS ON FILE Unspecified Sensorineural Hearing Loss (Primary Dx) Social History Tobacco Use Types Packs/Day Years Used Date Smoking Tobacco: Never Assessed Sex and Gender Information Value Date Recorded Sex Assigned at Not on file Legal Sex Male 5:54 AM WELL LOGGING CAPTAIN Gender Identity Not on file Sexual Orientation Not on file documented as of this encounter Plan of Treatment Not on file documented as of this encounter Visit Diagnoses Diagnosis Sensorineural hearing loss, unspecified- Primary documented in this encounter Care Teams Marine Engineering Professor Relationship Specialty Start Date End Date Ifeoma Pizano DO PCP - General Family Practice 01/17/11 03/23/16 documented as of this encounter
--- OUTSIDE RECORDS SUMMARY | 2024-12-13 16:14 | XMS_ITS | Encounter Summary ---
Author Organization [facility] Address [address] [place] [address] Care Team Providers Care Cupola Tender Name Role Phone Ifeoma Pizano DO Primary Care Provide r Unavailable Encounter Details Date Type Department Care Team (Latest Contact Info) Description 08/04/2004 Outpatient Historical [facility] Ear, Nose and Throat [address] [place] [address] [place] [phone] Laura Galeano AU.D NO ADDRESS ON FILE SENSORNEUR HEAR LOSS NOS (Primary Dx) Social History Tobacco Use Types Packs/Day Years Used Date Smoking Tobacco: Never Assessed Sex and Gender Information Value Date Recorded Sex Assigned at Not on file Legal Sex Male 5:54 AM LEASING MANAGER Gender Identity Not on file Sexual Orientation Not on file documented as of this encounter Plan of Treatment Not on file documented as of this encounter Visit Diagnoses Diagnosis Sensorineural hearing loss, unspecified- Primary documented in this encounter Care Teams Cupola Tender Relationship Specialty Start Date End Date Ifeoma Pizano DO PCP - General Family Practice 01/17/11 03/23/16 documented as of this encounter
--- OUTSIDE RECORDS SUMMARY | 2024-12-13 16:14 | XMS_ITS | Encounter Summary ---
Author Organization [facility] Address [address] [place] [address] Care Team Providers Care Tailor Helper Name Role Phone Ifeoma Pizano DO Primary Care Provide r Unavailable Encounter Details Date Type Department Care Team (Late st Contact Info) Description 06/02/2006 Outpatient Historical [facility], Nose and Throat [address] [place] [phone] Social History Tobacco Use Types Packs/Day Years Used Date Smoking Tobacco: Never Assessed Sex and Gender Information Value Date Recorded Sex Assigned at Not on file Legal Sex Male 5:54 AM INTERPRETIVE PROGRAM COORDINATOR Gender Identity Not on file Sexual Orientation Not on file documented as of this encounter Plan of Treatment Not on file documented as of this encounter Visit Diagnoses Not on filedocumented in this encounter Care Teams Tailor Helper Relationship Specialty Start Date End Date Ifeoma Pizano DO PCP - General Family Practice 01/17/11 03/23/16 documented as of this encounter
--- OUTSIDE RECORDS SUMMARY | 2024-12-13 16:14 | XMS_ITS | Clinical Summary ---
Author Organization [facility] Address [address] Chin: [place] [address] Care Team Providers Care Rehabilitation Tech Name Role Phone Unavailable Primary Care Provider Unavailabl e Allergies Active Allergy Reactions Criticality Noted Date Comments Gabapentin Confusion Low 07/23/2022 Lisinopril Cough Low 01/17/2011 Medications OTHER Prevagen extra strength at bedtime Active multivitamin tablet Take 1 Tablet by mouth daily. Active aspirin (BRIAN CHEWABLE) 81 mg Tablet, Chewable Take 1 Tablet (81 mg) by mouth daily. 90 Tablet 3 Active atorvastatin (LIPITOR) 40 mg tablet Take 1 Tablet (40 mg) by mouth daily at bedtime. 90 Tablet 3 Active allopurinoL (ZYLOPRIM) 300 mg tablet Take 1 Tablet (300 mg) by mouth daily. 60 Tablet 3 Active amiodarone (CORDARONE) 200 mg tablet Take 1 Tablet (200 mg) by mouth 2 times daily. 14 Tablet 3 Active metFORMIN (GLUCOPHAGE) 1,000 mg tablet Take 0.5 Tablets (500 mg) by mouth 2 times daily with meals. 120 Tablet 3 Active metoprolol tartrate (LOPRESSOR) 25 mg tablet Take 1 Tablet (25 mg) by mouth 2 times daily. 120 Tablet 3 Active omeprazole (PriLOSEC) 20 mg Capsule, Delayed Release(E.C.) Take 1 Capsule (20 mg) by mouth daily. 60 Capsule 3 Active potassium chloride (K-TAB) 20 mEq Extended Release tablet Take 1 Tablet (20 mEq) by mouth daily with breakfast. 7 Tablet 3 Active benzonatate (TESSALON) 200 mg capsule Take 1 Capsule (200 mg) by mouth 3 times daily as needed for Cough. 90 Capsule 3 Active fluticasone propionate (FLONASE) 50 mcg/spray [place], Suspension nasal inhaler Administer 2 Sprays in each nostril 1 time daily as needed for Rhinitis or Allergies. 16 Gram 3 Active menthol (HALLS COUGH DROPS) 7.6 mg Lozenge 1 Lozenge (7.6 mg) by Mouth/Throat route every 2 hours as needed for Sore Throat. 30 Lozenge 3 Active nitroglycerin (NITROSTAT) 0.4 mg Tablet, Sublingual Place 0.4 mg under tongue every 5 minutes as needed for Chest Pain. Active telmisartan (MICARDIS) 80 mg Tablet Take 80 mg by mouth daily. Active naproxen (NAPROSYN EC) 500 mg Tablet, Delayed Release (E.C.) Take by mouth 2 times daily. Active donepeziL (ARICEPT) 10 mg tablet Take 10 mg by mouth daily at bedtime. Active hydroCHLOROthia zide 50 mg tablet Take 50 mg by mouth daily. Active codeine-guaiFEN esin (ROBITUSSIN-AC) 10-100 mg/5 mL Liquid Take 10 mL by mouth every 4 hours as needed for Cough. 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-vessel cor onary artery bypass graft and aortic aneurysm repair 08/02/2022 Impaired mobility and ADLs 08/02/2022 Status post ascending aortic aneurysm repair Status post coronary artery bypass graft 023 Acute blood loss anemia 07/27/2022 Status post three vessel coronary artery bypass 07/27/2022 Dyslipidemia 07/24/2022 Obesity (BMI 30-39.9) 07/24/2022 NSTEMI (non-ST elevated myocardial infarction) 0 07/23/2022 Triple vessel coronary artery disease 07/23/2022 Type 2 diabetes mellitus wit h circulatory disorder, without long-term current use of insulin 07/23/2022 Shortness of breath 06/14/2012 Gout 03/16/2011 Vitamin D deficiency 03/16/2011 Monocytosis 03/16/2011 Essential hypertension GERD (gastroesophageal reflux disease) Hyperlipemia TIA (transient ischemic attack) Overview (08/13/2020): 2008 or 2009 - [facility] Melody Mendoza Resolved Problems Problem Noted Date Diagnosed Date Resolved Date Chronic cough 08/15/2008 06/14/2012 Immunizations Immunization Administration Dates Next Due Influenza Seasonal Unspecified Formulation IM Family History Medical History Relation Name Comments Cancer Father Colon Cancer Neg Hx Relation Name Status Comments Father Mother Social History Tobacco Use Types Packs/Day Years Used Date Smoking Tobacco: Former Cigarettes Q uit: 04/17/1967 Smokeless Tobacco: Former Quit: 01/17/1990 Tobacco Cessation:Counseling Given: Not Answered Alcohol Use Standard Drinks/Week Comments Yes 0 (1 standard drink = 0.6 oz pur e alcohol) Feeling Safe Answer Date Recorded Are you in a relationship wi th someone who hurts you emotionally and/or physically? 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 Gender Identity Not on file Sexual Orientation Not on file Last Filed Vital Signs Vital Sign Reading Time Taken Comments Blood Pressure 138/72 08/17/2022 10:19 AM CDT Pulse 68 08/17/2022 10:19 AM CDT Temperature 36.5 C (97.7 F) 08/08/2022 6:36 AM CDT Respiratory Rate 16 08/08/2022 9:08 AM CDT Oxygen Saturation 94% 08/17/2022 10:19 AM CDT Inhaled Oxygen Concentration - - Weight 88.9 kg (196 lb) 08/17/2022 10:19 AM CDT Height 165.1 cm (5' 5 ) 08/17/2022 10:19 AM CDT Body Mass Index 32.62 08/17/2022 10:19 AM CDT Plan of Treatment Health Maintenance Due Date Last Done Comments DIABETES ANNUAL FOOT EXAM 11/30/1961 DIABETES ANNUAL RETINAL EXAM 11/30/1961 DIABETES MICROALBUMIN ANNUAL SCREEN 11/30/1961 RSV VACCINE (60+ or ) (1 - 1-dose 75+ series) 11/30/2018 DIABETES HBA1C Q 6 MONTHS 01/23/2023 07/24/2022, 09/2022 LDL CHOLESTEROL ANNUAL 07/25/2023 3, 07/22/2022, 07/22/2022 INFLUENZA VACCINE (#1) 2024 2, 02/04/2021, 01/07/2020, Additional history exists DTAP/TDAP/TD VACCINES (2 - T d or Tdap) 12/05/2027 12/04/2017 PNEUMOCOCCAL VACCINE 50+ YEARS Completed 10/19/2016 , 05/19/2015 ZOSTER VACCINE Completed 04/19/2018, 01/16, 10/25/2013 Medical Devices Implanted Type Area Box Liner Device Identifier Shelf Expiration Date Model / Serial / Lot Graft Vasc Hemashield Pltnm [id number] - [id number] Implanted:Qty: 1 on 07/27/2022 by Pedro Carlisle MD at [facility] Graft N/A: Heart [employer] [id number] 03/16/2027 [id number] / [id number] / [id number] Hemostatic Surgifoam [id number] 1973 - [id number] Implanted:Qty: 1 on 07/27/2022 by Pedro Carlisle MD at [facility] Hemostatic N/A: Chest [employer] [id number] 04/18/20261973 / / [id number] Hemostatic Surgifoam Sz100 1973 - [id number] Implanted:Qty: 1 on 07/27/2022 by Pedro Carlisle MD at [facility] Hemostatic N/A: Chest [employer] [id number] 03/10/20261973 / / [id number] Marker Anastomark Coronry Ss Distal W/ Castro Amgm-D - [id number] Implanted:Qty: 1 on 07/27/2022 by Pedro Carlisle MD at [facility] Other N/A: Chest [employer] AMGM-D / / Marker Anastomark Coronry Ss Distal W/ Castro Amgm-D - [id number] Implanted:Qty: 1 on 07/27/2022 by Pedro Carlisle MD at [facility] Other N/A: Chest [employer] AMGM-D / / Marker Anastomark Coronry Ss Distal W/ Castro Amgm-D - [id number] Implanted:Qty: 1 on 07/27/2022 by Pedro Carlisle MD at [facility] Other N/A: Chest [employer] AMGM-D / / Adh Bioglue 10ml [id number] - [id number] Implanted:Qty: 1 on 07/27/2022 by Pedro Carlisle MD at [facility] Sealant N/A: Chest [employer] (FKA CRYOLIFE) [id number] 01/16/2024 [id number] / / [id number] Sealant Progel Pleural 4ml [id number] - [id number] Implanted:Qty: 1 on 07/27/2022 by Pedro Carlisle MD at [facility] Tissue N/A: Chest BARD DAVOL 10/31/2023 [id number] / / [id number] Procedures Procedure Name Priority Date/Time Associated Diagnosis Comments HEMOGLOBIN A1C Routine 07/24/2022 11:42 AM CDT LIPID PANEL Routine 07/24/2022 9:00 AM CDT from Last 3 Months or Most Recently Relevant to Health Maintenance Results * (ABNORMAL) HEMOGLOBIN A1C (07/24/2022 11:42 AM CDT) HEMOGLOBIN A1C 7.2(H) <=5.6 % 07/25/2022 9:06 AM CDT [facility] EST. AVG GLUCOSE, A1C 160 mg/dL 07/25/2022 9:06 AM CDT [facility] Blood Venipuncture / Unknown 07/24/2022 11:42 AM CDT 07/24/2022 12:25 PM CDT Narrative [facility] [employer] [facility] - 07/25/2022 9:06 AM CDT HGB A1C INTERPRETATION NORMAL: <5.7% PRE-DIABETES: 5.7 - 6.4% DIABETES: 6.5% OR GREATER Rosalee Nesbitt MD CHEMISTRY ORDERABLES Final Resu lt [facility] CLIA # [id number] [address] [address] [place] [address] * (ABNORMAL) LIPID PANEL (07/24/2022 9:00 AM CDT) CHOLESTEROL 196 <200 mg/dL 07/24/2022 10:28 AM CDT [facility] TRIGLYCERIDE 437(H) <150 mg/dL 07/24/2022 10:28 AM T [facility] HDL 32(L) 40 - 59 mg/dL 07/24/2022 10:28 AM T [facility] LDL CALCULATED 07/24/2022 10:28 AM T [facility] Comment:Calculated LDL is no t accurate when the Triglyceride value exceeds 400. NON-HDL CHOLESTEROL 164(H) <130 mg/dL 07/24/2022 10:28 AM [facility] Blood Venipuncture / Unknown 07/24/2022 9:00 AM CDT 07/24/2022 9:12 AM CDT Narrative [facility] - 07/24/2022 10:28 AM CDT TOTAL CHOLESTEROL mg/dL Desirable <200 Borderline high 200-239 High >=240 TRIGLYCERIDES mg/dL Normal <150 Borderline high 150-199 High 200-499 Very high >=500 HDL CHOLESTEROL mg/dL Low <40 Normal 40-59 Desirable >=60 NON HDL CHOLESTEROL mg/dL Optimal <130 Near Optimal 130-159 Borderline High 160-189 Very High >=190 CALCULATED LDL mg/dL LDL <70, OPTIMAL if have Atherosclerotic cardiovascular disease (ASCVD) or intermediate or higher (>7.5%) 10 year risk of ASCVD including most adults with diabetes. LDL <100, Optimal in adult patients with low (<7.5%) 10 year ASCVD risk LDL 100-160, Suboptimal LDL >160, High LDL >190, Very high ATPIII Guidelines Reference Ranges for Lipid Panels (NCEP/AMA) . Rosalee Nesbitt MD CHEMISTRY ORDERABLES Final Resu lt [facility] CLIA # [id number] [id number] [place] [address] from Last 3 Months or Most Recently Relevant to Health Maintenance [place] [address] [place] [address] [facility] [employer] Advance Directives For more information, please contact: [phone] Documents on File Type Date Recorded Patient Manager File Expl anation Advance Directive Living Will 07/27/2022 9:36 AM Advance Directive POA 07/27/2022 9:35 AM A dvance Directive POA * Full Code (Latest Code Status on File) Date Activated Date Inactivated Comments 08/02/2022 1:10 PM 08/08/2022 4:20 PM * Full Code Date Activated Date Inactivated Comments 07/27/2022 3:35 PM 08/02/2022 12:40 PM * Full Code Date Activated Date Inactivated Comments 07/23/2022 8:10 PM 07/27/2022 3:35 PM
--- OUTSIDE RECORDS SUMMARY | 2024-12-13 16:14 | XMS_ITS | Encounter Summary ---
Author Organization [facility] Address [address] [place] [address] Care Team Providers Care Video Recorder Mechanic Name Role Phone Ifeoma Pizano DO Primary Care Provide r Unavailable Encounter Details Date Type Department Care Team (Late st Contact Info) Description 06/26/2006 Outpatient Historical [facility] Ear, Nose and Throat 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
--- OUTSIDE RECORDS SUMMARY | 2024-12-13 16:14 | XMS_ITS | Encounter Summary ---
Author Organization [facility] Address [address] [place] [address] Care Team Providers Care Machine Accountant Name Role Phone PizanoIfeoma Vandana DO Primary Care Provide r Unavailable Encounter Details Date Type Department Care Team (Latest Contact Info) Description 06/05/2006 Outpatient Historical [facility] [address] 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 Gender Identity Not on file Sexual Orientation Not on file documented as of this encounter Plan of Treatment Not on file documented as of this encounter Procedures Procedure Name Priority Date/Time Associated Diagnosis Comments MRI IAC W WO CONTRAST Routine 06/05/2006 1:32 PM OUTSOLE CEMENTER MACHINE documented in this encounter Results * MRI IAC W WO CONTRAST (06/05/2006 1:32 PM OUTSOLE CEMENTER MACHINE) Anatomical Region Laterality Modality Head Other 06/05/2006 1:32 PM OUTSOLE CEMENTER MACHINE Narrative 06/05/2006 1:32 PM OUTSOLE CEMENTER MACHINE MRI IAC's with and without contrastDate: 06/05/2006. History: 60-year-old male hearing loss, not otherwise specified. Technique: Multiplanar multisequence MR images were obtained prior to and following 20 mLOptimark. Findings: Midline structures appear normal. Ventricles and subarachnoid spaces within normal limitsfor age. Brain parenchymal signal and morphology show no pathologic alteration. No abnormal brainparenchymal or meningeal enhancement. Major intracranial arterial flow-voids are maintained. Orbitsand paranasal sinuses show no gross abnormality as imaged. Dedicated thin sections through the temporal bones show no evidence of vestibular cochlear schwannomaor abnormal labyrinthine enhancement. Mastoid air cells and middle ear cavities are clear. IMPRESSION: Unremarkable. No focal structural lesion identified to account for hearing loss. - Dictated By: Camilo Martinez D.O. Electronically Signed By: Camilo Martinez D.O. Date Signed: 06/05/06 Procedure Note 03/06/2009 MRI IAC's with and without contrastDate: 06/05/2006. History: 60-year-old male hearing loss, not otherwise specified. Technique: Multiplanar multisequence MR images were obtained prior to and [id number] mLOptimark. Findings: Midline structures appear normal. Ventricles and subarachnoid spaceswithin normal limitsfor age. Brain parenchymal signal and morphology show no pathologic alteration. Noabnormal brainparenchymal or meningeal enhancement. Major intracranial arterial flow-voids aremaintained. Orbitsand paranasal sinuses show no gross abnormality as imaged. Dedicated thin sections through the temporal bones show no evidence ofvestibular cochlear schwannomaor abnormal labyrinthine enhancement. Mastoid air cells and middle earcavities are clear. IMPRESSION: Unremarkable. No focal structural lesion identified to account for hearingloss. - Dictated By: Camilo Martinez D.O. Electronically Signed By: Camilo Martinez D.O. Date Signed: 06/05/06 Royce Mccann MD MR ORDERABLES Final Result documented in this encounter Visit Diagnoses Diagnosis Other specified forms of hearing loss- Primary documented in this encounter Care Teams Machine Accountant Relationship Specialty Start Date End Date Ifeoma Pizano DO PCP - General Family Practice 01/17/11 03/23/16 documented as of this encounter
--- OUTSIDE RECORDS SUMMARY | 2024-12-13 16:14 | XMS_ITS | Encounter Summary ---
Author Organization [facility] Address [address] [place] [address] Care Team Providers Care Financing Analyst Name Role Phone Ifeoma Pizano DO Primary Care Provide r Unavailable Encounter Details Date Type Department Care Team (Latest Contact Info) Description 05/10/2004 Outpatient Historical [facility] Ear, Nose and Throat 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
--- OUTSIDE RECORDS SUMMARY | 2024-12-13 16:14 | XMS_ITS | Encounter Summary ---
Author Organization [facility] Address [address] [place] [address] Care Team Providers Care Medication Tech Name Role Phone Ifeoma Pizano DO Primary Care Provide r Unavailable Encounter Details Date Type Department Care Team (Late st Contact Info) Description 05/10/2004 Outpatient Historical [facility] Ear, Nose and Throat 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
--- OUTSIDE RECORDS SUMMARY | 2024-12-13 16:14 | XMS_ITS | Encounter Summary ---
Author Organization [facility] Address [address] [place] [address] Care Team Providers Care Telephone Answerer Name Role Phone Ifeoma Pizano DO Primary Care Provide r Unavailable Encounter Details Date Type Department Care Team (Latest Contact Info) Description 06/26/2006 Outpatient Historical [facility] Ear, Nose and Throat 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
--- OUTSIDE RECORDS SUMMARY | 2024-12-13 16:14 | XMS_ITS | Encounter Summary ---
Author Organization [facility] Address [address] [place] [address] Care Team Providers Care Global Logistics Analyst Name Role Phone Ifeoma Pizano DO Primary Care Provide r Unavailable Encounter Details Date Type Department Care Team (Latest Contact Info) Description 05/26/2004 Outpatient Historical [facility] Ear, Nose and Throat 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
--- NOTE | 2024-12-13 16:26 | XRR_ITS ---
PROCEDURE INFORMATION: Exam: XR Chest Exam date and time: 12/13/2024 4:43 PM Age: 79 years old Clinical indication: Pain; Chest pressure; Prior surgery; Surgery date: 6+ months; Surgery type: Cabg, cardiac cath; Additional info: Chest pain TECHNIQUE: Imaging protocol: Radiologic exam of the chest. Views: 1 view. COMPARISON: CR XR chest 1V portable [id number] 09/16/2024 12:03 PM FINDINGS: Lungs: Chronic opacification of the left mid to lower lung, likely due to a combination of scarring/atelectasis and projection of mediastinal structures, unchanged compared to 09/16/2024. No consolidation. Pleural spaces: Unremarkable. No pleural effusion. No pneumothorax. Heart/Mediastinum: Unremarkable. No cardiomegaly. Bones/joints: Median sternotomy wires. XR/XR chest 1V portable [id number] IMPRESSION: No acute finding.
[2024-12-13 16:37] LABS: Hematocrit 41.9 % (37-53); Hemoglobin 13.30 g/dL (11.27-16.99); Mean Corpuscular HGB Conc 31.7 g/dL (30-55); Mean Corpuscular Hemoglobin 26.0 pg (27-33); Mean Corpuscular Volume 81.8 fl (82-101); Nucleated Red Blood Cells % 0 %; Platelet Count 294 10^3/cmm (157-399); Red Blood Count 5.12 10^6/uL (3.85-5.65); White Blood Count 6.26 10^3/uL (3.29-11.43)
--- NOTE | 2024-12-13 16:39 | ECG_ITS ---
[employer] Test Date: 2024-12-13 Pat Name: Heriberot Lyon Department: Room: Gender: Male Interactive Developer: : 1945 Requested By: David Horne Order Number: [id number] Dimas MD: Thom Matta M.D. Measurements Intervals Miller Rate: 65 P: 54 GA: 216 QRS: -35 QRSD: 157 T: 28 QT: 440 QTc: 459 Interpretive Statements SINUS RHYTHM WITH FIRST DEGREE AV BLOCK RIGHT BUNDLE BRANCH BLOCK [120+ ms QRS DURATION, UPRIGHT V1, 40+ ms S IN I/aVL/V4/V5/V6] INFERIOR MYOCARDIAL INFARCTION , OF INDETERMINATE AGE [40+ ms Q WAVE AND/OR ST/T ABNORMALITY IN II/aVF] MODERATE T-WAVE ABNORMALITY, CONSIDER LATERAL ISCHEMIA [-0.1+ mV T-WAVE IN I/aVL/V5/V6] Compared to ECG 12/13/2024 16:12:44 No significant changes Electronically Signed On 12-13-2024 22:36:22 CDT by Thom Matta M.D. [email or web address]
[2024-12-13 16:52] LABS: Troponin(5th) Baseline 16 ng/L (0-15)
--- NOTE | 2024-12-13 16:53 | W.ED.CHESTPA ---
Documented by User: David Boucher DO 12/15/24 11:35 HPI - Chest Pain General: Chief Complaint: Chest Pain Stated Complaint: chest pain Time Seen by Provider: 12/13/24 16:26 History of Present Illness: 79-year-old male presents to the emergency room with complaints of chest pain. Patient has known history of coronary disease previously had bypass. Today he had substernal chest pain nonradiating he had been a little bit short of breath he has intermittently had the chest pain for a few days he did not done anything with it. He was given aspirin and a sublingual nitro at the SD. He had resolution of his chest pain. Prior to the nitro he states chest pain is a 5 or 6 is resolved now. Initial EKG did not show any acute changes. He has had some orthopnea but he states that is chronic in the last 2 weeks he has not had any other episodes of chest pain or not had to take any nitro. Associated symptoms: Deny abdominal pain, dyspnea or fever(s) Related Data Home Medications ?Medication ?Instructions ?Recorded ?Confirmed telmisartan 80 mg tablet 80 mg PO DAILY 10/12/20 09/16/24 Prevagen 1 cap PO BEDTIME 09/25/22 09/16/24 allopurinol 300 mg tablet 300 mg PO BEDTIME 09/25/22 09/16/24 aspirin 81 mg tablet,delayed 81 mg PO QPM 09/25/22 09/16/24 release atorvastatin 40 mg tablet (Lipitor) 40 mg PO BEDTIME 09/25/22 09/16/24 multivitamin 1 tab PO QAM 09/25/22 09/16/24 potassium chloride 20 mEq 20 meq PO QPM 09/25/22 09/16/24 tablet,extended release metformin 1,000 mg tablet 500 mg PO BID 11/09/22 09/16/24 carvedilol 25 mg tablet 25 mg PO BID 09/16/24 09/16/24 donepezil 10 mg tablet 10 mg PO DAILY 09/16/24 09/16/24 glimepiride 2 mg tablet 1 mg PO QAM 09/16/24 09/16/24 hydrochlorothiazide 25 mg tablet 12.5 mg PO QAM 09/16/24 09/16/24 magnesium citrate 100 mg tablet 100 mg PO .DAILY DIRECTED 09/16/24 09/16/24 omeprazole 40 mg capsule,delayed 4,800 mg PO DAILY 09/16/24 09/16/24 release Allergies Allergy/AdvReac Type Severity Reaction Status Date / Time gabapentin Allergy Unknown Verified 09/16/24 11:26 lisinopril Allergy Unknown Verified 09/16/24 11:26 Review of Systems Const: Denies: fever(s) or chills Card: Reports: chest pain Resp: Denies: dyspnea GI: Denies: abdominal pain : Denies: dysuria, urinary frequency or urinary urgency Musc: Denies: neck pain or back pain Skin/Breast: Denies: rash PFSH ED PFSH: Medical History CAD (coronary artery disease) History of cardiovascular stress test 12/2018 Exercise Sestamibi: normal myocardial imaging, normal EKG response to treadmill, METs max 10.2 History of Holter monitoring 01/2021 sinus vj to sinus tachycardia (54-128, average 71), 1st degree AVB, PVC burden 1.72%, PSVC burden 0.01% Hearing loss Gout Osteoarthritis Diabetes mellitus, type II with nephropathy and neuropathy History of TIA (transient ischemic attack) Obstruction of cystic duct Aortic root dilatation Thoracic ascending aortic aneurysm GERD (gastroesophageal reflux disease) Hyperlipidemia Hypertension Surgical History History of cardiac catheterization 07/23/2022 mid LAD, distal RCA, OM 1 lesions Status post laparoscopic cholecystectomy (01/25/21) Status post colonoscopy Hx of appendectomy S/P tonsillectomy and adenoidectomy Family History Other CAD (coronary artery disease) Social History Smoking and tobacco/nicotine status: never used tobacco/nicotine Alcohol intake: current Alcohol intake frequency: holidays/special occasions only Substance/Drug Use: never Physical Exam Const: GENERAL APPEARANCE: cooperative ORIENTATION/CONSCIOUSNESS: Yes awake, Yes oriented to person, Yes oriented to place and Yes oriented to time HENMT: COMMON NORMALS: normocephalic, atraumatic and hearing grossly normal bilaterally HEAD & SCALP: normocephalic and atraumatic Resp: COMMON NORMALS: normal respiratory effort, No retractions, No use of accessory muscles and clear to auscultation bilaterally AUSCULTATION: clear to auscultation bilaterally Cardio: COMMON NORMALS: regular rate, regular rhythm and No murmurs present (Cardio) RATE: regular rate RHYTHM: regular rhythm GI: COMMON NORMALS: Soft to palpation and No hepatosplenomegaly present AUSCULTATION: Yes normoactive bowel sounds PALPATION: Yes Soft to palpation, No Tenderness to palpation present (GI), No Guarding due to palpation present (GI) and Yes No hepatosplenomegaly present Extremity: COMMON NORMALS: normal to inspection, capillary refill normal, no clubbing, cyanosis or edema, no calf tenderness and no pedal edema Neuro: SENSORIUM/ORIENTATION: Yes oriented to person, Yes oriented to place and Yes oriented to time Skin: COMMON NORMALS: no rashes or lesions noted GENERAL SKIN EXAM: no rashes or lesions noted Course Vital Signs: Vital signs: Vital Signs Temperature 98.1 F 12/13/24 16:13 Pulse Rate 69 12/13/24 20:42 Respiratory Rate 16 12/13/24 20:42 Blood Pressure 125/80 12/13/24 20:42 Pulse Oximetry 94 12/13/24 20:42 Oxygen Delivery Me thod Room Air 12/13/24 20:37 MDM - Chest Pain Medical Decision Making Care signed out to Dr. Naik at change of shift. See final notes for diagnosis and disposition. Patient received in checkout from Dr. Boucher at shift change. This gentleman has no chest pain currently. It resolved on his arrival. We have not had to treat any pain. His vitals are stable. His EKG shows a right bundle chiquita block, sinus rhythm, rate of 60, first-degree AV block as well. No acute ST-T wave changes. Chest x-ray shows no acute change. Laboratory otherwise not remarkable. Counseled patient. Given the option to stay versus go home. He wishes to go home. He knows to return for any return of symptoms. Medical Records I reviewed the patient's medical records. Lab Data I reviewed the patient's lab results. 12/13/24 15:55 12/13/24 15:55 Radiology Impressions Chest X-Ray 12/13/24 16:26 IMPRESSION: No acute finding. Laboratory Results WBC 6.26 10^3/uL (3.29-11.43) 12/13/24 15:55 RBC 5.12 10^6/uL (3.85-5.65) 12/13/24 15:55 Hgb 13.30 g/dL (11.27-16.99) 12/13/24 15:55 Hct 41.9 % (37-53) 12/13/24 15:55 MCV 81.8 fl (82-101) L 12/13/24 15:55 MCH 26.0 pg (27-33) L 12/13/24 15:55 MCHC 31.7 g/dL (30-55) 12/13/24 15:55 RDW 15.9 % (12.1-15.1) H 12/13/24 15:55 Plt Count 294 10^3/cmm (157-399) 12/13/24 15:55 MPV 11.5 fL (7.4-10.4) H 12/13/24 15:55 Neut % (Auto) 49.3 % 12/13/24 15:55 Lymph % (Auto) 34.8 % 12/13/24 15:55 Weston % (Auto) 12.1 % 12/13/24 15:55 Eos % (Auto) 3.0 % 12/13/24 15:55 Baso % (Auto) 0.6 % 12/13/24 15:55 Neut # (Auto) 3.08 10^3/uL (1.8-7.7) 12/13/24 15:55 Lymph # (Auto) 2.2 10^3/uL (0.8-4.8) 12/13/24 15:55 Weston # (Auto) 0.8 10^3/uL (0.2-0.9) 12/13/24 15:55 Eos # (Auto) 0.2 10^3/uL (0.0-0.8) 12/13/24 15:55 Baso # (Auto) 0.0 10^3/uL (0.0-0.1) 12/13/24 15:55 Nucleated RBC % (auto) 0 % 12/13/24 15:55 Nucleated RBCs # 0.0 /100WBC 12/13/24 15:55 Sodium 140 mmol/L (136-145) 12/13/24 15:55 Potassium 4.0 mmol/L (3.5-5.1) 12/13/24 15:55 Chloride 101 mmol/L (98-107) 12/13/24 15:55 Carbon Dioxide 23 mmol/L (22-29) 12/13/24 15:55 Anion Gap 20.0 (5-19) H 12/13/24 15:55 BUN 15 mg/dL (8-23) 12/13/24 15:55 Creatinine 1.0 mg/dL (0.7-1.2) 12/13/24 15:55 GFR Calculation Not Reportable 12/13/24 15:55 Glucose 84 mg/dL (65-115) 12/13/24 15:55 Calculated Osmolality 290 mOsm/kg (285-295) 12/13/24 15:55 Calcium 9.4 mg/dL (8.5-10.5) 12/13/24 15:55 Total Bilirubin 0.6 mg/dL (0.15-1.2) 12/13/24 15:55 AST 32 U/L (0-40) 12/13/24 15:55 ALT 35 U/L (0-41) 12/13/24 15:55 Alkaline Phosphatase 69 U/L (40-130) 12/13/24 15:55 Troponin T Baseline 16 ng/L (0-15) H 12/13/24 15:55 Troponin T 120 Minute 13.47 ng/L (0-15) 12/13/24 18:29 Delta Troponin T -2.53 ABS# (0-10) L 12/13/24 18:29 Total Protein 7.8 g/dL (6.6-8.7) 12/13/24 15:55 Albumin 4.4 g/dL (3.5-5.2) 12/13/24 15:55 Globulin 3.4 g/dL (1.3-4.6) 12/13/24 15:55 EKG Data EKG 1: Interpretation: EKG 12/13/2024 1639. Sinus rhythm first-degree AV block rate of 65 [place] interval 216 QTc 451. Patient has a right bundle branch block. He has Q waves in the inferior leads. No acute ST elevation. Compared to EKG 09/16/2024 there are some changes in the lateral leads with T wave inversion noted in V3 through V6 Discharge Plan Discharge Patient Disposition: Home Clinical Impression: Chest pain CAD (coronary artery disease) Qualifiers: Coronary Disease-Associated Artery/Lesion type: big sandy artery [place] vs. transplanted heart: big sandy heart Associated angina: without angina Qualified Code(s): I25.10 - Atherosclerotic heart disease of big sandy coronary artery without angina pectoris Condition: Stable Prescriptions: No Action metformin 1,000 mg tablet 500 mg PO BID telmisartan 80 mg tablet 80 mg PO DAILY multivitamin Tablet 1 tab PO QAM atorvastatin [Lipitor] 40 mg Tablet 40 mg PO BEDTIME aspirin [Aspir-81] 81 mg Tablet,Delayed Release (Dr/Ec) 81 mg PO QPM allopurinol 300 mg Tablet 300 mg PO BEDTIME potassium chloride 20 mEq tablet extended release 20 meq PO QPM Prevagen 1 cap PO BEDTIME carvedilol 25 mg tablet 25 mg PO BID donepezil 10 mg Tablet 10 mg PO DAILY omeprazole 40 mg Capsule,Delayed Release(Dr/Ec) 4,800 mg PO DAILY glimepiride 2 mg Tablet 1 mg PO QAM Rx Instructions: administer with breakfast hydrochlorothiazide 25 mg Tablet 12.5 mg PO QAM magnesium citrate 100 mg Tablet 100 mg PO .DAILY DIRECTED Discharge Orders: Discharge ED (Routine); Ordered 12/13/24 Ordered By: Reed Naik Referrals: Brissa Garland MD [Primary Care Provider, Family Practice] - 1-3 days Patient Instructions: Chest Pain (ED), Opioid Safety, Pain Management, Patient Portal & Mónica Instructions Activity Restrictions/Additional Instructions: Return immediately for any return of your symptoms such as chest discomfort, shortness of breath, dizziness or syncope or passing out, or any other concerning symptoms. Let your network internship know you were seen here on Monday. Give them a call in the morning. They may wish to see you. Print Language: Kazakh Coding Level of Care Code ED Manager Managed Care for Chg Jakubd Documented by User: Reed Naik DO 12/14/24 05:02 HPI - Chest Pain General: Chief Complaint: Chest Pain Stated Complaint: chest pain Time Seen by Provider: 12/13/24 16:26 Related Data Home Medications ?Medication ?Instructions ?Recorded ?Confirmed telmisartan 80 mg tablet 80 mg PO DAILY 10/12/20 09/16/24 Prevagen 1 cap PO BEDTIME 09/25/22 09/16/24 allopurinol 300 mg tablet 300 mg PO BEDTIME 09/25/22 09/16/24 aspirin 81 mg tablet,delayed 81 mg PO QPM 09/25/22 09/16/24 release atorvastatin 40 mg tablet (Lipitor) 40 mg PO BEDTIME 09/25/22 09/16/24 multivitamin 1 tab PO QAM 09/25/22 09/16/24 potassium chloride 20 mEq 20 meq PO QPM 09/25/22 09/16/24 tablet,extended release metformin 1,000 mg tablet 500 mg PO BID 11/09/22 09/16/24 carvedilol 25 mg tablet 25 mg PO BID 09/16/24 09/16/24 donepezil 10 mg tablet 10 mg PO DAILY 09/16/24 09/16/24 glimepiride 2 mg tablet 1 mg PO QAM 09/16/24 09/16/24 hydrochlorothiazide 25 mg tablet 12.5 mg PO QAM 09/16/24 09/16/24 magnesium citrate 100 mg tablet 100 mg PO .DAILY DIRECTED 09/16/24 09/16/24 omeprazole 40 mg capsule,delayed 4,800 mg PO DAILY 09/16/24 09/16/24 release Allergies Allergy/AdvReac Type Severity Reaction Status Date / Time gabapentin Allergy Unknown Verified 09/16/24 11:26 lisinopril Allergy Unknown Verified 09/16/24 11:26 [facility] ED PFS: Medical History CAD (coronary artery disease) History of cardiovascular stress test 12/2018 Exercise Sestamibi: normal myocardial imaging, normal EKG response to treadmill, METs max 10.2 History of Holter monitoring 01/2021 sinus vj to sinus tachycardia (54-128, average 71), 1st degree AVB, PVC burden 1.72%, PSVC burden 0.01% Hearing loss Gout Osteoarthritis Diabetes mellitus, type II with nephropathy and neuropathy History of TIA (transient ischemic attack) Obstruction of cystic duct Aortic root dilatation Thoracic ascending aortic aneurysm GERD (gastroesophageal reflux disease) Hyperlipidemia Hypertension Surgical History History of cardiac catheterization 07/23/2022 mid LAD, distal RCA, OM 1 lesions Status post laparoscopic cholecystectomy (01/25/21) Status post colonoscopy Hx of appendectomy S/P tonsillectomy and adenoidectomy Family History Other CAD (coronary artery disease) Social History Smoking and tobacco/nicotine status: never used tobacco/nicotine Alcohol intake: current Alcohol intake frequency: holidays/special occasions only Substance/Drug Use: never Course Vital Signs: Vital signs: Vital Signs Temperature 98.1 F 12/13/24 16:13 Pulse Rate 69 12/13/24 20:42 Respiratory Rate 16 12/13/24 20:42 Blood Pressure 125/80 12/13/24 20:42 Pulse Oximetry 94 12/13/24 20:42 Oxygen Delivery Me thod Room Air 12/13/24 20:37 MDM - Chest Pain Medical Decision Making Patient received in checkout from Dr. Boucher at shift change. This gentleman has no chest pain currently. It resolved on his arrival. We have not had to treat any pain. His vitals are stable. His EKG shows a right bundle chiquita block, sinus rhythm, rate of 60, first-degree AV block as well. No acute ST-T wave changes. Chest x-ray shows no acute change. Laboratory otherwise not remarkable. Counseled patient. Given the option to stay versus go home. He wishes to go home. He knows to return for any return of symptoms. Lab Data 12/13/24 15:55 12/13/24 15:55 Radiology Impressions Chest X-Ray 12/13/24 16:26 IMPRESSION: No acute finding. Laboratory Results WBC 6.26 10^3/uL (3.29-11.43) 12/13/24 15:55 RBC 5.12 10^6/uL (3.85-5.65) 12/13/24 15:55 Hgb 13.30 g/dL (11.27-16.99) 12/13/24 15:55 Hct 41.9 % (37-53) 12/13/24 15:55 MCV 81.8 fl (82-101) L 12/13/24 15:55 MCH 26.0 pg (27-33) L 12/13/24 15:55 MCHC 31.7 g/dL (30-55) 12/13/24 15:55 RDW 15.9 % (12.1-15.1) H 12/13/24 15:55 Plt Count 294 10^3/cmm (157-399) 12/13/24 15:55 MPV 11.5 fL (7.4-10.4) H 12/13/24 15:55 Neut % (Auto) 49.3 % 12/13/24 15:55 Lymph % (Auto) 34.8 % 12/13/24 15:55 Weston % (Auto) 12.1 % 12/13/24 15:55 Eos % (Auto) 3.0 % 12/13/24 15:55 Baso % (Auto) 0.6 % 12/13/24 15:55 Neut # (Auto) 3.08 10^3/uL (1.8-7.7) 12/13/24 15:55 Lymph # (Auto) 2.2 10^3/uL (0.8-4.8) 12/13/24 15:55 Weston # (Auto) 0.8 10^3/uL (0.2-0.9) 12/13/24 15:55 Eos # (Auto) 0.2 10^3/uL (0.0-0.8) 12/13/24 15:55 Baso # (Auto) 0.0 10^3/uL (0.0-0.1) 12/13/24 15:55 Nucleated RBC % (auto) 0 % 12/13/24 15:55 Nucleated RBCs # 0.0 /100WBC 12/13/24 15:55 Sodium 140 mmol/L (136-145) 12/13/24 15:55 Potassium 4.0 mmol/L (3.5-5.1) 12/13/24 15:55 Chloride 101 mmol/L (98-107) 12/13/24 15:55 Carbon Dioxide 23 mmol/L (22-29) 12/13/24 15:55 Anion Gap 20.0 (5-19) H 12/13/24 15:55 BUN 15 mg/dL (8-23) 12/13/24 15:55 Creatinine 1.0 mg/dL (0.7-1.2) 12/13/24 15:55 GFR Calculation Not Reportable 12/13/24 15:55 Glucose 84 mg/dL (65-115) 12/13/24 15:55 Calculated Osmolality 290 mOsm/kg (285-295) 12/13/24 15:55 Calcium 9.4 mg/dL (8.5-10.5) 12/13/24 15:55 Total Bilirubin 0.6 mg/dL (0.15-1.2) 12/13/24 15:55 AST 32 U/L (0-40) 12/13/24 15:55 ALT 35 U/L (0-41) 12/13/24 15:55 Alkaline Phosphatase 69 U/L (40-130) 12/13/24 15:55 Troponin T Baseline 16 ng/L (0-15) H 12/13/24 15:55 Troponin T 120 Minute 13.47 ng/L (0-15) 12/13/24 18:29 Delta Troponin T -2.53 ABS# (0-10) L 12/13/24 18:29 Total Protein 7.8 g/dL (6.6-8.7) 12/13/24 15:55 Albumin 4.4 g/dL (3.5-5.2) 12/13/24 15:55 Globulin 3.4 g/dL (1.3-4.6) 12/13/24 15:55 All radiology interpretation(s) finalized by discharge Discharge Plan Discharge Patient Disposition: Home Clinical Impression: Chest pain CAD (coronary artery disease) Qualifiers: Coronary Disease-Associated Artery/Lesion type: big sandy artery [place] vs. transplanted heart: big sandy heart Associated angina: without angina Qualified Code(s): I25.10 - Atherosclerotic heart disease of big sandy coronary artery without angina pectoris Condition: Stable Prescriptions: No Action metformin 1,000 mg tablet 500 mg PO BID telmisartan 80 mg tablet 80 mg PO DAILY multivitamin Tablet 1 tab PO QAM atorvastatin [Lipitor] 40 mg Tablet 40 mg PO BEDTIME aspirin [Aspir-81] 81 mg Tablet,Delayed Release (Dr/Ec) 81 mg PO QPM allopurinol 300 mg Tablet 300 mg PO BEDTIME potassium chloride 20 mEq tablet extended release 20 meq PO QPM Prevagen 1 cap PO BEDTIME carvedilol 25 mg tablet 25 mg PO BID donepezil 10 mg Tablet 10 mg PO DAILY omeprazole 40 mg Capsule,Delayed Release(Dr/Ec) 4,800 mg PO DAILY glimepiride 2 mg Tablet 1 mg PO QAM Rx Instructions: administer with breakfast hydrochlorothiazide 25 mg Tablet 12.5 mg PO QAM magnesium citrate 100 mg Tablet 100 mg PO .DAILY DIRECTED Discharge Orders: Discharge ED (Routine); Ordered 12/13/24 Ordered By: Reed Naik Referrals: Brissa Garland MD [Primary Care Provider, Family Practice] - 1-3 days Patient Instructions: Chest Pain (ED), Opioid Safety, Pain Management, Patient Portal & Mónica Instructions Activity Restrictions/Additional Instructions: Return immediately for any return of your symptoms such as chest discomfort, shortness of breath, dizziness or syncope or passing out, or any other concerning symptoms. Let your network internship know you were seen here on Monday. Give them a call in the morning. They may wish to see you. Print Language: Kazakh Coding Level of Care Code ED Manager Managed Care for Bautista Mendoza
[2024-12-13 16:54] LABS: Alanine Aminotransferase 35 U/L (0-41); Albumin Level 4.4 g/dL (3.5-5.2); Alkaline Phosphatase 69 U/L (40-130); Anion Gap 20.0 (5-19); Aspartate Amino Transferase 32 U/L (0-40); Blood Urea Nitrogen 15 mg/dL (8-23); Calcium 9.4 mg/dL (8.5-10.5); Carbon Dioxide 23 mmol/L (22-29); Chloride 101 mmol/L (98-107); Creatinine Clr Calc Pharmacy 60.2705; Globulin 3.4 g/dL (1.3-4.6); Glucose 84 mg/dL (65-115); Osmolality Calculated 290 mOsm/kg (285-295); Potassium 4.0 mmol/L (3.5-5.1); Sodium 140 mmol/L (136-145); Total Protein 7.8 g/dL (6.6-8.7)
[2024-12-13 17:02] VITALS: BP 123/62; PULSE 67; RESP 16; O2SAT 93
[2024-12-13 18:40] VITALS: BP 138/75; PULSE 69; RESP 16; O2SAT 93
--- NOTE | 2024-12-13 18:57 | ECG_ITS ---
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 Measurements Intervals Bath Rate: 59 P: 61 SC: 271 QRS: -39 QRSD: 145 T: 32 QT: 445 QTc: 443 Interpretive Statements SINUS BRADYCARDIA WITH FIRST DEGREE AV BLOCK RIGHT BUNDLE BRANCH BLOCK [120+ ms QRS DURATION, UPRIGHT V1, 40+ ms S IN I/aVL/V4/V5/V6] INFERIOR MYOCARDIAL INFARCTION , OF INDETERMINATE AGE [40+ ms Q WAVE AND/OR ST/T ABNORMALITY IN II/aVF] MODERATE T-WAVE ABNORMALITY, CONSIDER LATERAL ISCHEMIA [-0.1+ mV T-WAVE IN I/aVL/V5/V6] Compared to ECG 12/13/2024 16:39:45 Sinus rhythm no longer present Myocardial infarct finding still present T-wave abnormality still present Possible ischemia still present Electronically Signed On 12-13-2024 22:50:16 CDT by Thom Matta M.D. [email or web address]
[2024-12-13 19:07] LABS: Troponin 5 2HR 13.47 ng/L (0-15)
[2024-12-13 19:08] LABS: Troponin 5 2HR Delta -2.53 ABS# (0-10)
[2024-12-13 20:37] VITALS: BP 125/80; PULSE 79; RESP 16; O2SAT 93
[2024-12-13 20:42] VITALS: BP 125/80; PULSE 69; RESP 16; O2SAT 94
== END 2024-12-13 20:42 | disposition home or self-care (01) ==
PROVIDERS: Family Medicine; Emergency Provider Emergency Medicine; PCP Family Medicine
DX: R07.9 Chest pain, unspecified (principal); I25.10 Atherosclerotic heart disease of native coronary artery without angina pectoris; Z79.84 Long term (current) use of oral hypoglycemic drugs; Z79.82 Long term (current) use of aspirin; E11.9 Type 2 diabetes mellitus without complications; E78.5 Hyperlipidemia, unspecified; I10 Essential (primary) hypertension; Z86.73 Personal history of transient ischemic attack (TIA), and cerebral infarction without residual deficits
CPT/HCPCS: 36415; 71045; 80053; 84484; 85025; 93005; 99285

== ENCOUNTER 2025-03-18 09:08 | Outpatient (CLI) | payer OTHER, SELFPAY ==
--- NOTE | 2025-03-18 09:15 | MR_ITS ---
WS: [id number] MRI RIGHT KNEE HISTORY: Medial RIGHT knee pain for 2 weeks. No injury. COMPARISON: None available. Anterior cruciate ligament: Intact. Posterior cruciate ligament: Intact. Medial collateral ligament: Intact. Posterior lateral corner structures: Increased signal in the popliteus tendon and a partial insertion site tear. Fibular collateral ligament appears intact. Medial menisci: Increased signal in the posterior horn extends to the intra- articular surface. Meniscal tear involving the peripheral third of the meniscus. Lateral meniscus: Intact. Normal signal, size and shape. Extensor mechanism: Distal quadriceps tendon and patellar tendons are intact. Fluid and soft tissue: Small suprapatellar joint effusion. There is a small amount of fluid near the fibular head associated with the popliteus muscle which is may be a ganglion or bursa. This is only a very small collection. No Bowen's cyst. Osseous and articular structures: Patellofemoral compartment: Normal position of the patella. Cartilage is well-preserved. Medial compartment: Mild narrowing of the medial compartment. Mild thinning and fissuring of the cartilage. No fractures or marrow edema. Lateral compartment: Mild narrowing of the lateral compartment. No fracture or marrow edema. Minimal thinning of the cartilage. MR/MR knee RT wo con* [id number] IMPRESSION: 1. No ACL tear. 2. Mildly complex tear involving the peripheral third posterior horn medial me niscus. 3. Mild narrowing the medial and lateral compartments with minimal chondromala luna. 4. No fractures or marrow edema. 5. Mild popliteus tendon sprain. Suspect partial insertion site tear of the po pliteus tendon to the femoral condyle.
== END 2025-03-18 09:09 | disposition home or self-care (01) ==
LOC: RAD 09:09
PROVIDERS: PCP Family Medicine; Visit Provider Nurse Practitioner
DX: M25.561 Pain in right knee (principal); S83.231A Complex tear of medial meniscus, current injury, right knee, initial encounter; S86.811A Strain of other muscle(s) and tendon(s) at lower leg level, right leg, initial encounter; X58.XXXA Exposure to other specified factors, initial encounter; M94.261 Chondromalacia, right knee; M17.11 Unilateral primary osteoarthritis, right knee
CPT/HCPCS: 73721